=== PATIENT | female | born 1985 | race Caucasian/White ===

== ENCOUNTER 2023-05-04 14:08 | Outpatient (OUT) | payer OTHER, SELFPAY ==
--- NOTE | 2023-05-04 14:19 | ECG_ITS ---
[facility] Test Date: 2023-05-04 Pat Name: Tiana Nichols Department: Room: - Gender: Female [employer]: : 1985 Requested By: EDWARD ANTON Order Number: [id number] Reading MD: RUBY LYON Measurements Intervals [place]an Rate: 61 P: 48 MD: 123 QRS: 68 QRSD: 89 T: 61 QT: 402 QTc: 408 Interpretive Statements SINUS RHYTHM No previous ECG available for comparison Electronically Signed On 05-10-2023 7:25:57 EST by RUBY LYON
--- NOTE | 2023-05-04 14:19 | XR_ITS ---
The [address] [address] Patient Name: DICKSON NOE MRN: [id number] date: 1985 Sex: F Assigned Patient Location: [facility] Current Patient Location: [facility] Accession/Order Number: [id number] Exam Date: 05/04/2023 14:58 Report Date: 05/04/2023 15:26 At the request of: EDWARD ANTON Procedure: XR chest 2V EXAM: XR chest 2V HISTORY: Preop exam COMPARISON: None. TECHNIQUE: Upright PA and lateral chest x-ray FINDINGS: A very small amount of linear atelectasis or scarring is seen at the left costophrenic angle. No acute infiltrate, effusion or pneumothorax is identified. The heart is not enlarged and the vasculature is not distended. The osseous structures are grossly intact. XR/XR chest 2V IMPRESSION: There is a very small amount of linear atelectasis or scarring at the left costophrenic angle. There is no evidence of a focal infiltrate or overt cardiac decompensation. Direct comparison with a previous study may be helpful in confirming the chronicity of these findings. Electronically authenticated by: JANES GRAHAM Date: 05/04/2023 15:26
== END 2023-05-04 14:09 | disposition home or self-care (01) ==
LOC: PST 14:13
PROVIDERS: PCP Family Medicine; Visit Provider Obstetrics & Gynecology
DX: Z01.810 Encounter for preprocedural cardiovascular examination (principal); Z30.2 Encounter for sterilization
CPT/HCPCS: 71046; 93005

== ENCOUNTER 2023-06-15 14:36 | Outpatient (OUT) | payer OTHER, SELFPAY | END 2023-06-15 14:37 | disposition home or self-care (01) | LOC: PST 14:37 | PROVIDERS: PCP Family Medicine; Visit Provider Obstetrics & Gynecology | DX: Z01.818 Encounter for other preprocedural examination (principal); Z30.2 Encounter for sterilization ==

== ENCOUNTER 2023-06-22 06:13 | Day surgery (SDC) | payer OTHER, SELFPAY ==
[2023-05-04 14:50] VITALS: BP 121/76; PULSE 87; RESP 20; TEMP 36.2; O2SAT 98; BMI 26.4
[2023-06-22] VITALS (13 sets, daily range): BP systolic 102–124; BP diastolic 56–70; PULSE 58–77; TEMP 36.1–36.2; O2SAT 94–99; BMI 25.9
--- OUTSIDE RECORDS SUMMARY | 2023-06-22 06:16 | XMS_ITS | CCD ---
Author Organization [facility] Care Team Providers Care Paper Inspector Name Role Phone Unavailable Primary Care Provider Unavailsofia e SHAWANDA MULLINS Referring Unavailable SHAWANDA MULLINS Referring Unavailable CHARLIE ESCOBEDO Admitting Unavailable CHARLIE ESCOBEDO Attending Unavailable DR DICKSON REDMAN Primary Care Unavailable CHARLIE ESCOBEDO Consulting Unavailable Smiley Jain CNM Unavailable Dickson Redman MD Primary Care Provider [phone] EDWARD HOPE Attending Unavailable EDWARD HOPE Attending Unavailable Allergies Allergy Classification Reported Allergen(s) Allergy Type Date of Onset Reaction(s) Facility Acetaminophen / HYDROcodone (1 source) Acetaminophen / HYDROcodone Drug Allergy 6 [facility] Opioid Agonists (1 source) Codeine Drug Allergy 9 [facility] (1 source) Acetaminophen / HYDROcodone Drug Allergy 8 GI intolerance [facility] Healthcare (1 source) Amoxicillin Drug Allergy 2 Nausea Only [facility] Healthcare Work Phone: (1 source) Codeine Drug Allergy 7 GI intolerance, Nausea Only, Unknown [facility] (1 source) risperiDONE Drug Allergy 3 [facility] (1 source) traMADol Drug Allergy 8 [facility] Medications Current Medications Medication Drug Class(es) Dates Sig (Normalized) Sig (Original) atorvastatin 10 mg oral tablet (2 sources) HMG-CoA Reductase Inhibitor take 1 tablet by mouth once daily atorvastatin (Lipitor) 10 MG tablet TAKE 1 TABLET BY MOUTH EVERY DAY for 30 0 Active busPIRone hydrochloride 10 mg oral tablet (1 source) Start: 3 busPIRone (Buspar) 10 MG tablet ergocalciferol 1.25 mg oral capsule (1 source) Provitamin D2 Compound Start: 3 take 1 capsule by mouth every week ergocalciferol (Vitamin D2) 1.25 MG (81090 UT) capsule Take 1 capsule by mouth 1 (one) time per week 0 03/06/2023 Active fluticasone propionate 0.05 mg/actuat metered dose nasal spray (1 source) Corticosteroid Start: 2 take 1 spray(s) nasal route in the morning fluticasone (Flonase) 50 MCG/ACT nasal spray ADMINISTER 1 SPRAY INTO EACH NOSTRIL IN THE MORNING. 0 12/16/2021 Active gabapentin 100 mg oral capsule (1 source) Anti-epileptic Agent take 5 capsules by mouth in the morning gabapentin (Neurontin) 100 MG capsule Take 500 mg by mouth in the morning. 0 Active ibuprofen 800 mg oral tablet (1 source) Nonsteroidal Anti-inflammatory Drug take 1 tablet by mouth three times daily at mealtime as needed ibuprofen 800 MG tablet TAKE 1 TABLET BY MOUTH THREE TIMES A DAY WITH FOOD OR MILK NEEDED 0 Active 1 ml medroxyPROGESTERone acetate 150 mg/ml prefilled syringe (1 source) Progestin Start: 3 End: 4 Depo-Provera 150 MG/ML suspension prefilled syringe injection syringe Indications: Unwanted fertility 1 ml Intramuscular 0.9 mL 0 12/03/2022 04/20/2023 Discontinued OLANZapine 7.5 mg oral tablet (5 sources) Atypical Antipsychotic Start: 3 take 1 tablet by mouth once daily at bedtime OLANZapine (ZyPREXA) 7.5 MG tablet TAKE 1 TABLET BY MOUTH EVERY DAY BEDTIME ALONG WITH 2.5MG THREE TIMES DAILY 0 09/26/2022 Active ZyPREXA 2.5 MG t ablet 1 (one) time each day at the same time. 0 Active take 1 tablet by mouth at bedtim e OLANZapine (ZyPREXA) 5 MG tablet Take 5 mg by mouth at bedtime. 0 Active take 1 tablet by cecelia th once daily in the morning OLANZapine zydis (ZyPREXA) 5 MG disintegrating tablet Take 5 mg by mouth Daily in the Morning 0 Active QUEtiapine 25 mg oral tablet (1 source) Atypical Antipsychotic End: 04-20-2023 take 1 tablet by mouth at bedtime QUEtiapine (SEROquel) 25 MG tablet Take 25 mg by mouth at bedtime 0 04/20/2023 Discontinued topiramate 50 mg oral tablet (2 sources) Start: 03-20-2023 take 1 tablet by mouth in the morning topiramate 50 MG tablet Take 1 tablet by mouth in the morning and 1 tablet before bedtime. 0 03/20/2023 Active Topamax 25 MG ta blet every 12 (twelve) hours. 0 Active Problems Active Problems Problem Classification Problem Date Documented Date Episodic/Chronic Anxiety disorders (2 sources) Anxiety; Translations: [Anxiety disorder, unspecified] Onset: 12-22-2016 10-14-2022 Chronic Contraceptive and procreative management (1 source) Sterilization requested; Translations: [Encounter for sterilization] 04-20-2023 Episodic Esophageal disorders (1 source) Gastroesophageal reflux disease; Translations: [Gastro-esophageal reflux disease without esophagitis] Onset: 10-14-2022 10-14-2022 Chronic Malaise and fatigue (1 source) Fatigue; Translations: [Chronic fatigue, unspecified] Onset: 10-14-2022 10-14-2022 Chronic Menopausal disorders (1 source) Menopausal flushing; Translations: [Menopausal and female climacteric states] Onset: 10-14-2022 10-14-2022 Chronic Menstrual disorders (1 source) Irregular periods; Translations: [Irregular menstruation, unspecified] Onset: 10-14-2022 10-14-2022 Chronic Mood disorders (4 sources) Bipolar disorder; Translations: [Bipolar disorder, unspecified] Onset: 12-22-2016 10-14-2022 Chronic Nutritional deficiencies (1 source) Vitamin D deficiency; Translations: [Vitamin D deficiency, unspecified] Onset: 10-14-2022 10-14-2022 Chronic Other eye disorders (4 sources) Ocular pain, left eye; Translations: [OCULAR PAIN LEFT EYE] Onset: 07-08-2020 Episodic Substance-related disorders (3 sources) Nicotine dependence, cigarettes, uncomplicated; Translations: [Cocaine abuse] Onset: 02-20-2017 10-14-2022 Chronic Past or Other Problems Problem Classification Problem Date Documented Da te Episodic/Chronic Other nervous system disorders (1 source) Muscle twitch; Translations: [Fasciculation] Onset: 10-14-2022 10-14-2022 Episodic Other nervous system disorders (1 source) Spasmodic movement; Translations: [Fasciculation] Onset: 10-14-2022 10-14-2022 Episodic Other upper respiratory disease (1 source) Nasal congestion; Translations: [Nasal congestion] Onset: 02-01-2019 10-14-2022 Episodic Urinary tract infections (1 source) Recurrent urinary tract infection; Translations: [Urinary tract infection, site not specified] Onset: 07-31-2021 10-14-2022 Episodic Results Test Name Value Interpretation Reference Range Facil y DEXA BONE DENSITYon 01-14-20 DEXA BONE DENSITY HISTORY: Screening for osteoporosis COMPARISON: None available COMMENTS: The lumbar spine and both hips were scanned. The mean bone mineral density from L1 to L4 is 0.726 g/sq cm. T-score -2.9. Z- score -2.9. The mean bone mineral density of the left femoral neck is 0.587 g/sq cm. T-score -2.4. Z- score -2.2. The mean bone mineral density of the right femoral neck is 0.598 g/sq cm. T-score -2.3. Z- score -2.1. These values meet WHO criteria for osteoporosis. IMPRESSION: OSTEOPOROSIS. 1 year follow-up recommended. ELECTRONICALLY SIGNED BY: Clifford Gould, DO Normal Not Available Urinalysis w/ Microon 2019 ----- Normal [facility] Comment on above: Performed By: #### U AMIC #### [facility] [address] [place] [address] Carpet Tile Layer: Brian Wakefield MD Acetoacetic Acid,Ur Negative Normal NEG [facility] Comment on above: Performed By: #### U AMIC #### [facility] [address] [place] [address] Carpet Tile Layer: Brian Wakefield MD Bacteria LM.HPF (Urine sed) [#/Area] TRACE Abnormal NONE [facility] Comment on above: Performed By: #### U AMIC #### [facility] [address] [place], [place] [id number] Carpet Tile Layer: Brian Wakefield MD Bilirubin, SemiQt,Ur Negative Normal NEG [facility] Comment on above: Performed By: #### U AMIC #### [facility] [address] [place] [phone] Carpet Tile Layer: Brian Wakefield MD Color (U) YELLOW Normal YEL [facility] Comment on above: Performed By: #### U AMIC #### [facility] [address] [place] [phone] Carpet Tile Layer: Brian Wakefield MD Epithelial cells LM.HPF (Urine sed) [#/Area] 0 TO 2 Normal 0-25 [facility] Comment on above: Performed By: #### U AMIC #### [facility] [address] [place], [place] [phone] Carpet Tile Layer: Brian Wakefield MD Glucose Ql (U) Negative Normal NEG [facility] Comment on above: Performed By: #### U AMIC #### [facility] [address] [place], [place] [phone] Carpet Tile Layer: Brian Wakefield MD Hemoglobin, Ur Negative Normal NEG [facility] Comment on above: Performed By: #### U AMIC #### [facility] [address] [place], [place] [phone] Carpet Tile Layer: Brian Wakefield MD Leukocyte esterase Test strip Ql (U) MODERATE Abnormal NEG [facility] Comment on above: Performed By: #### U AMIC #### [facility] [address] [place], [place] [phone] Carpet Tile Layer: Brian Wakefiedl MD Nitrite,Ur Negative Normal [facility] Comment on above: Performed By: #### U AMIC #### [facility] [address] [place] [phone] [employer]pet Tile Layer: Brian Wakefield MD pH (U) 6.0 [pH] Normal 5.0-9.0 [facility] Comment on above: Performed By: #### U AMIC #### [facility] [address] [place], [place] [phone] [employer]pet [employer]ile Layer: Brian Wakefield MD Protein Ql (U) Negative Normal NEG [facility] Comment on above: Performed By: #### U AMIC #### [facility] [address] [place], [place] [phone] [employer]pet Tile Layer: Brian Wakefield MD RBC (U) [#/Vol] None Normal 0-2 [facility] Comment on above: Performed By: #### U AMIC #### [facility] [address] [place], [place] [phone] [employer]pet [employer]ile Layer: Brian Wakefield MD Specific gravity (U) [Rel density] 1.025 High 1.010-1.020 [facility] Comment on above: Performed By: #### U AMIC #### [facility] [address] [place], [place] [phone] Carpet Tile Layer: Brian Wakefield MD Turbidity CLEAR Normal CLEAR [facility] Comment on above: Performed By: #### U AMIC #### [facility] [address] [place], [place] [phone] [employer]pet [employer]ile Layer: Brian Wakefield MD Urobilinogen,Ur Normal Normal NORM [facility] Comment on above: Performed By: #### U AMIC #### [facility] [address] [place], [place] [phone] [employer]pet [employer]ile Layer: Brian Wakefield MD WBC (U) [#/Vol] 10 TO 20 Normal 0-5 [facility] Comment on above: Performed By: #### U AMIC #### [facility] [address] [place], [place] [phone] Carpet Tile Layer: Brian Wakefield MD Amorphous sediment LM Ql (Urine sed) NOT REPORTED Normal [facility] Comment on above: Performed By: #### U AMIC #### [facility] [address] [place] [address] Carpet Tile Layer: Brian Wakefield MD Casts LM.LPF (Urine sed) [#/Area] NOT REPORTED Normal [facility] Comment on above: Performed By: #### U AMIC #### [facility] [address] [place] [address] [employer]pet Tile Layer: Brian Wakefield MD Comment NOT REPORTED Normal [facility] Comment on above: Performed By: #### U AMIC #### [facility] [address] [place] [address] [employer]pet Tile Layer: Brian Wakefield MD Crystals LM Nom (Urine sed) NOT REPORTED Normal NONE [facility] Comment on above: Performed By: #### U AMIC #### [facility] [address] [place] [phone] [place]pet [place]ile Layer: Brian Wakefield MD Epithelial, Renal NOT REPORTED Normal 0 [facility] Comment on above: Performed By: #### U AMIC #### [facility] [address] [place], [place] [address] [employer]pet [employer]ile Layer: Brian Wakefield MD Mucus Strands NOT REPORTED Normal NONE [facility] Comment on above: Performed By: #### U AMIC #### [facility] [address] [place], [place] [address] Carpet Tile Layer: Brian Wakefield MD Other Observations NOT REPORTED Normal NREQ [facility] Comment on above: Performed By: #### U AMIC #### [facility] [address] [place], [place] [phone] [employer]pet Tile Layer: Brian Wakefield MD Trichomonas NOT REPORTED Normal NONE [facility] Comment on above: Performed By: #### U AMIC #### [facility] [address] [place], [place] [address] [employer]pet Tile Layer: Brian Wakefield MD Yeast LM Ql (Urine sed) NOT REPORTED Normal NONE [facility] Comment on above: Performed By: #### U [facility] #### [facility] [address] [place] [address] [employer]pet Tile Layer: Brian Wakefield MD Urinalysis with Microscopico n 11-14-2019 Amorphous, UA NOT REPORTED None [place], [place] Bacteria, UA TRACE Abnormal None [place], [place] Bilirubin Urine Negative NEGATIVE [place] Casts UA NOT REPORTED /LPF [place] Color, UA YELLOW YELLOW [place] Crystals, UA NOT REPORTED None /HPF [place] Epithelial Cells UA 0 TO 2 [place] Glucose, Ur Negative NEGATIVE [place] Interpretation and review of laboratory results Abnormal [place] Ketones Ql (U) Negative NEGATIVE [place] Leukocyte esterase Test strip Ql (U) MODERATE Abnormal NEGATIVE [place] Mucus, UA NOT REPORTED None [place] Nitrite, Urine Negative NEGATIVE [place] Other Observations UA NOT REPORTED NOT REQ. M [place] pH, UA 6.0 [place] Protein (U) [Mass/Vol] Negative NEGATIVE [place] RBC (U) [#/Vol] None [place] Renal Epithelial, UA NOT REPORTED 0 /HPF [place] Specific [place], UA 1.025 [place] Trichomonas, UA NOT REPORTED None [facility] [place] Turbidity UA CLEAR CLEAR [place] Urinalysis Comments NOT REPORTED [place] Urine Hgb Negative NEGATIVE [place] Urobilinogen, Urine Normal Normal [place] WBC, UA 10 TO 20 [place] Yeast, UA NOT REPORTED None [place] - [place] Cult,Urineon 11-04-2019 Cult,Urine Specimen Description .CLEAN CATCH URINE Special Requests NOT REPORTED Culture ESCHERICHIA COLI >[id number] CFU/ML Report Status FINAL 11/03/2019 SUSCEPTIBILITY Organism ESCHERICHIA COLI Method CONRADO Amikacin NOT REPORTED Ampicillin >=32 RESISTANT Ampicillin/Sulbacta m NOT REPORTED Aztreonam <=1 SUSCEPTIBLE Cefazolin <=4 SUSCEPTIBLE Cefazolin sensitivity results can be used to predict the effectiveness of oral cephalosporins (eg. Cephalexin) in uncomplicated Urinary Tract Infections due to E. coli, K. pneumoniae, and P. mirabilis Cefepime NOT REPORTED Ceftriaxone <=1 SUSCEPTIBLE Ciprofloxacin <=0.25 SUSCEPTIBLE Ertapenem NOT REPORTED ESBL NEGATIVE Gentamicin <=1 SUSCEPTIBLE Meropenem NOT REPORTED Nitrofurantoin <=16 SUSCEPTIBLE Tigecycline NOT REPORTED Tobramycin <=1 SUSCEPTIBLE Trimethoprim/Sulfa <=20 SUSCEPTIBLE Piperacillin/Tazoba ctam <=4 SUSCEPTIBLE Normal [facility] Comment on above: Performed By: #### U #### [facility] [address] [place] [address] [employer]pet Tile Layer: Nura Deal MD [facility] [address] [place] [address] [place]pet Tile Layer: Brian Wakefield MD Microscopic Urinalysison Amorphous, UA NOT REPORTED None [place] Bacteria, UA 2+ Abnormal None [place] Casts UA NOT REPORTED /LPF [place] Crystals, UA NOT REPORTED None /HPF [place] Epithelial Cells UA 5 TO 10 [place] Interpretation and review of laboratory results Abnormal [place] Mucus, UA NOT REPORTED None [place] Other Observations UA NOT REPORTED NOT REQ. [place] RBC (U) [#/Vol] 0 TO 2 [place] Renal Epithelial, UA NOT REPORTED 0 /HPF [place] Trichomonas, UA NOT REPORTED None [facility] [place] WBC, UA 20 TO 50 [place] Yeast, UA NOT REPORTED None [place] - [place] Urinalysison 11-02-2019 Bilirubin Urine Negative NEGATIVE [place] Color, UA YELLOW YELLOW [place] Glucose, Ur Negative NEGATIVE [place] Interpretation and review of laboratory results Abnormal [place] Ketones Ql (U) Negative NEGATIVE [place] Leukocyte esterase Test strip Ql (U) SMALL Abnormal NEGATIVE [place] Nitrite, Urine Positive Abnormal NEGATIVE [place] pH, UA 6.0 [place] Protein (U) [Mass/Vol] Negative NEGATIVE [place] Specific [place], UA 1.025 [place] Turbidity UA CLEAR CLEAR [place] Urinalysis Comments NOT REPORTED [place] Urine Hgb Negative NEGATIVE [place] Urobilinogen, Urine Normal Normal [place] Urinalysis, Routineon 2019 Acetoacetic Acid,Ur Negative Normal NEG [facility] Comment on above: Performed By: #### U A, UMICAO #### [facility] [address] [place] [address] [place] [address] Carpet Tile Layer: Brian Wakefield MD Bilirubin, SemiQt,Ur Negative Normal NEG [facility] Comment on above: Performed By: #### U A, UMICAO #### [address] [place] [address] [employer]pet Tile Layer: Brian Wakefield MD Color (U) YELLOW Normal YEL [facility] Comment on above: Performed By: #### U A, UMICAO #### [address] [place] [address] [employer]pet Tile Layer: Brian Wakefield MD Glucose Ql (U) Negative Normal NEG [facility] Comment on above: Performed By: #### U A, UMICAO #### [address] [place] [address] [employer]pet Tile Layer: Brian Wakefield MD Hemoglobin, Ur Negative Normal NEG [facility] Comment on above: Performed By: #### U A, UMICAO #### [facility] [address] [place] [address] [employer]pet [place]ile Layer: Brian Wakefield MD Leukocyte esterase Test strip Ql (U) SMALL Abnormal NEG [facility] Comment on above: Performed By: #### U A, UMICAO #### [facility] [address] [place], [place] [phone] Carpet Tile Layer: Brian Wakefield MD Nitrite,Ur Positive Abnormal NEG [facility] Comment on above: Performed By: #### U A, UMICAO #### [facility] [address] [place], [place] [phone] Carpet [employer]ile Layer: Brian Wakefield MD pH (U) 6.0 [pH] Normal 5.0-9.0 [facility] Comment on above: Performed By: #### U A, UMICAO #### [facility] [address] [place], [place] [phone] [place]pet [place]ile Layer: Brian Wakefield MD Protein Ql (U) Negative Normal NEG [facility] Comment on above: Performed By: #### U A, UMICAO #### [facility] [address] [place], [place] [phone] Carpet [place]ile Layer: Brian Wakefield MD Specific gravity (U) [Rel density] 1.025 High 1.010-1.020 [facility] Comment on above: Performed By: #### U A, UMICAO #### [facility] [address] [place], [place] [phone] Carpet [employer]ile Layer: Brian Wakefield MD Turbidity CLEAR Normal CLEAR [facility] Comment on above: Performed By: #### U A, UMICAO #### [facility] [address] [place], [place] [phone] Carpet [place]ile Layer: Brian Wakefield MD Urobilinogen,Ur Normal Normal NORM [facility] Comment on above: Performed By: #### U A, UMICAO #### [facility] [address] [place], [place] [address] Carpet [employer]ile Layer: Brian Wakefield MD Comment NOT REPORTED Normal [facility] Comment on above: Performed By: #### U A, UMICAO #### [facility] [address] [place], [place] [address] Carpet [employer]ile Layer: Brian Wakefield MD Urinalysis,Microon 0 ----- Normal [facility] Comment on above: Performed By: #### U A, UMICAO #### [facility] [address] [place], [place] [phone] Carpet [employer]ile Layer: Brian Wakefield MD Bacteria LM.HPF (Urine sed) [#/Area] 2+ Abnormal [facility] Comment on above: Performed By: #### U A, UMICAO #### [facility] [address] [place], [place] [phone] Carpet [employer]ile Layer: Brian Wakefield MD Epithelial cells LM.HPF (Urine sed) [#/Area] 5 TO 10 Normal 0-25 [facility] Comment on above: Performed By: #### U A, UMICAO #### [facility] [address] [place], [place] [address] Carpet [employer]ile Layer: Brian Wakefield MD RBC (U) [#/Vol] 0 TO 2 Normal 0-2 [facility] Comment on above: Performed By: #### U A, UMICAO #### [facility] [address] [place], [place] [phone] Carpet [employer]ile Layer: Brian Wakefield MD WBC (U) [#/Vol] 20 TO 50 Normal 0-5 [facility] Comment on above: Performed By: #### U A, UMICAO #### [facility] [address] [place], [place] [phone] Carpet Tile Layer: Brian Wakefield MD Amorphous sediment LM Ql (Urine sed) NOT REPORTED Normal [facility] Comment on above: Performed By: #### U A, UMICAO #### [facility] [address] [place], [place] [address] Carpet Tile Layer: Brian Wakefield MD Casts LM.LPF (Urine sed) [#/Area] NOT REPORTED Normal [facility] Comment on above: Performed By: #### U A, UMICAO #### [facility] [address] [place], [place] [address] Carpet Tile Layer: Brian Wakefield MD Crystals LM Nom (Urine sed) NOT REPORTED Normal NONE [facility] Comment on above: Performed By: #### U A, UMICAO #### [facility] [address] [place], [place] [phone] Carpet [place]ile Layer: Brian Wakefield MD Epithelial, Renal NOT REPORTED Normal 0 [facility] Comment on above: Performed By: #### U A, UMICAO #### [facility] [address] [place] [address] Carpet Tile Layer: Brian Wakefield MD Mucus Strands NOT REPORTED Normal [facility] Comment on above: Performed By: #### U A, UMICAO #### [facility] [address] [place] [address] Carpet Tile Layer: Brian Wakefield MD Other Observations NOT REPORTED Normal NREQ [facility] Comment on above: Performed By: #### U A, UMICAO #### [facility] [address] [place] [address] Carpet Tile Layer: Brian Wakefield MD Trichomonas NOT REPORTED Normal NONE [facility] Comment on above: Performed By: #### U A, UMICAO #### [facility] [address] [place] [address] Carpet [place]ile Layer: Brian Wakefield MD Yeast LM Ql (Urine sed) NOT REPORTED Normal [facility] Comment on above: Performed By: #### U A, UMICAO #### [facility] [address] [place] [address] Carpet Tile Layer: Brian Wakefield MD Vital Signs Date Time Vital Sign Value Performing Clinician Cynthia gtzy 04-20-2023 10:20-0500 Body mass index (BMI) [Ratio] 25.45 kg/m2 Edward Herminia DO Work Phone: [facility] 04-20-2023 10:20-0500 Body weight 75.35 kg Edward Herminia DO Work Phone: [facility] 04-20-2023 10:20-0500 Diastolic blood pressure 70 mm[Hg] Edward Herminia DO Work Phone: [facility] 04-20-2023 10:20-0500 Systolic blood pressure 116 mm[Hg] Edward Herminia DO Work Phone: [facility] Encounters Encounter Date Encounter Type Care Provider Facility Start: 04-23-2023 End: 04-23-2023 ambulatory EDWARD HERMINIA Not Available Start: 04-20-2023 End: 04-20-2023 ambulatory EDWARD HERMINIA Not Available Start: 04-20-2023 End: 04-20-2023 Office outpatient visit 15 minutes Edward Herminia DO Work Phone: [facility] Comment on above: Pre-op examination; Request for sterilization Start: 04-20-2023 End: 04-20-2023 Preprocedural examination done Edward Herminia DO Work Phone: [facility] Start: 03-24-2023 End: 03-24-2023 ambulatory EDWARD HERMINIA Not Available Start: 07-08-2020 End: 07-08-2020 ambulatory CHARLIE ESCOBEDO Facility: Start: 11-14-2019 End: 11-15-[address] [facility] Start: 11-14-2019 End: 11-14-2019 Subsequent hospital visit by [facility] Start: 11-02-2019 End: 11-03-[address] [facility] Start: 11-02-2019 End: 11-02-2019 Subsequent hospital visit by physician MARK Laboratory Procedures Date Procedure Procedure Detail Performing Clinician Start: 07-25-2020 Microscopic observat ion [Identifier] in Cervix by Cyto stain Edward Hope DO Work Phone: Start: 11-14-2019 Urnls dip stick/tabl et reagent auto microscopy SHAWANDA MULLINS Start: 11-14-2019 Urnls dip stick/tabl et reagent auto microscopy Shawanda Mullins Work Phone: Start: 11-02-2019 Culture bacterial quanttative colony count urine SHAWANDA MULLINS Start: 11-02-2019 Urinalysis microscop ic only Shawanda Mullins Work Phone: Start: 11-02-2019 Urnls dip stick/tabl et rgnt auto w/o microscopy Shawanda Mullins Work Phone: Plan of Treatment Date Care Activity Detail Author Start: 07-25-2025 Screening for malign ant neoplasm of cervix [facility] Start: 07-26-2023 Screening for malign ant neoplasm of cervix Pap Smear [facility] Start: 11-15-2019 Influenza vaccination Flu vaccine (# 1) [place], [place] End: 11-02-2019 Culture, Urine Culture, Urine Microbiology Routine Once for 1 Occurrences starting 11/02/2019 until 11/02/2019 [place] Comment on above: Once for 1 Occurrenc es starting 11/02/2019 until 11/02/2019 Culture, Urine Culture, Urine Microbiology Routine 11/02/2019 7:00 AM EDT [place], [place] Payers Date Payer Category Payer Medicaid [facility] Y MEDICAID [facility] MEDICAID [id number] 2013-Present [address] [place] [address] [id number] 1985 Unknown [id number] 1987 Unknown [id number] 1987 Unknown [id number] 1987 Unknown [id number] 1987 Unknown [id number] 1959 Unknown [id number] Social History Date Type Detail Facility [facility] [place] Start: 1985 Sex Assigned At Not on file [facility] [place] Start: 10-13-2022 Tobacco smoking stat [facility] Occasional tobacco smoker [facility] History of tobacco use Cigarette Smoker [facility] Start: 10-13-2022 Cigarettes smoked current (pack per day) - Reported 0.3 [facility] Start: 04-20-2023 Alcohol intake Lifetime non-d michelle (finding) [facility] Start: 10-13-2022 Tobacco use panel [facility] Start: 08-16-2022 Education 13 [facility] Start: 08-18-2022 Tobacco Comment Smokes 60 mins after waking up. 5 or less cigs a day. [facility] Start: 08-16-2022 Alcohol Comment caffeine intak e: 2-3 cups per day, >4 cups per day mountain dew & coffee [facility] Start: 05-28-2022 Gender identity Identifies as female gender (finding) [facility] History of Present illness Narrative 04-20-2023 Lesli Harvey - 04/20/2023 10:10 AM EST Note Date & Type Note Facility 04-20-2023 History of Presen t illness Narrative Reason for Appointment: Patient ID: Dickson Kumar is a 37 y.o. female who presents for No chief complaint on file. Patient presents today for a Pre Op appointment. Patient is scheduled to undergo Da Zach assisted Bilateral Laparoscopic Salpingectomy on 05/15/[address] Hope at [facility]. Current Medications: has a current medication list which includes the following prescription(s): buspirone, topiramate, atorvastatin, atorvastatin, depo-provera, ergocalciferol, fluticasone, gabapentin, ibuprofen, olanzapine, olanzapine, olanzapine, olanzapine zydis, quetiapine, topamax, and zyprexa. Medical History: Active Ambulatory Problems Diagnosis Date Noted Anxiety 10/14/2022 Bipolar disorder ([facility]) 10/14/2022 Bipolar II disorder ([facility]) 12/22/2016 Mood disorder [facility] 10/14/2022 Bipolar disorder, current episode manic severe with psychotic features ([facility]) 10/14/2022 Chronic fatigue 10/14/2022 Cocaine abuse ([facility]) 10/14/2022 Gastroesophageal reflux disease 10/14/2022 Hot flashes due to menopause 10/14/2022 Irregular periods 10/14/2022 Muscle twitching 10/14/2022 Nasal congestion 02/01/2019 Generalized anxiety disorder ([facility]) 12/22/2016 Recurrent UTI (urinary tract infection) 07/31/2021 Substance dependence ([facility]) 02/20/2017 Twitching 10/14/2022 Vitamin D deficiency 10/14/2022 Resolved Ambulatory Problems Diagnosis Date Noted No Resolved Ambulatory Problems Past Medical History: Diagnosis Date Chlamydia Depression ([facility]) Drug abuse ([facility]) Personal history of medical treatment 02/2017 PTSD (post-traumatic stress disorder) ([facility]) Family History Problem Relation Name Age of Onset Depression Mother Hypertension Mother Cancer Mother Anxiety disorder Father Depression Father Hyperlipidemia Father Mental illness Father Depression Sister Leukemia Maternal Grandmother Kidney cancer Maternal Grandfather Dementia Paternal Grandmother Cancer Paternal Grandmother Lung cancer Paternal Grandfather No Known Problems Daughter Social History Tobacco Use Smoking status: Some Days Packs/day: .25 Types: Cigarettes Smokeless tobacco: Not on file Tobacco comments: Smokes 60 mins after waking up. 5 or less cigs a day. Substance Use Topics Alcohol use: Never Comment: caffeine intake: 2-3 cups per day, >4 cups per day mountain dew & coffee Drug use: Yes Types: Crack cocaine, Marijuana Comment: COCAINE: route: intranasal; treatment program: Tues and Thurs; Have not injected drugs; There is a minor (18 years or younger) at risk at home (1 child); MARIJUANA: 3x/week - when her daughter is not there. Pt is very interested in trying oils Past Surgical History: Procedure Laterality Date COLONOSCOPY PAP SMEAR 07/25/2020 Allergies Allergen Reactions Amoxicillin Nausea Only Codeine GI intolerance, Nausea Only and Unknown Other Reaction(s): Vomiting , Nausea Hydrocodone-Acetaminophen GI intolerance Risperidone Other Reaction(s): Akesthesia Tramadol Pt is unsure of allergy Review of Systems: Review of Systems Constitutional: Negative. HENT: Negative. Eyes: Negative. Respiratory: Negative. Cardiovascular: Negative. Gastrointestinal: Negative. Genitourinary: Negative. Musculoskeletal: Negative. Skin: Negative. Neurological: Negative. All other systems reviewed and are negative. Hematological: Negative. Endocrine: Negative. Allergic/Immunologic: Negative. Objective Physical Exam Constitutional: Appearance: Normal appearance. She is well-developed. Cardiovascular: Rate and Rhythm: Normal rate and regular rhythm. Pulmonary: Effort: Pulmonary effort is normal. Breath sounds: Normal breath sounds. Abdominal: General: Bowel sounds are normal. There is no distension. Palpations: Abdomen is soft. Tenderness: There is no abdominal tenderness. There is no guarding or rebound. Musculoskeletal: General: No swelling. Normal range of motion. Right lower leg: No edema. Left lower leg: No edema. Neurological: Mental Status: She is alert and oriented to person, place, and time. Skin: General: Skin is warm and dry. Psychiatric: Mood and Affect: Mood normal. Behavior: Behavior normal. Vitals and nursing note reviewed. Exam conducted with a computer technical specialist present. Vitals: Estimated body mass index is 25.45 kg/m as calculated from the following: Height as of 10/14/22: 5' 7.75 . Weight as of this encounter: 166 lb 1.9 oz. BP: 116/70 No LMP recorded. Assessment/Plan Encounter Diagnoses Name Primary? Pre-op examination Request for sterilization Pre Op: Patient is doing well but has desire for sterilization. I have discussed conservative management vs. surgical management with the patient in detail and patient desires surgical management at this time. Patient has voiced understanding that a Bilateral Salpingectomy is considered to be permanent and patient will undergo Da Zach assisted Bilateral Laparoscopic Salpingectomy on 05/15/2023. Surgical consents were signed, mmc was reviewed, and patient is to proceed to [facility] OR. Follow Up: Patient is to follow up between 1-2 weeks post op to assess proper healing and recovery from procedure. Documented by: Edward Hope DO documented in this encounter [facility] Evaluation note Note Date & Type Note Facility Evaluation note Diagnosis Pre-op examination Request for sterilization documented in this encounter [facility] Summary Purpose Family History No Family History Records FoundNo Family History Records FoundNo Family History Records Found Advance Directives No Advanced Directives Records FoundNo Advanced Directives Records FoundNo Advanced Directives Records Found Additional Source Comments INFORMATION SOURCE (unrecogn ized section and content) DATE CREATED AUTHOR 11/15/2019 [facility] DATE CREATED AUTHOR AUTHOR'S ORGANIZ ATION 07/24/2020 [facility] DATE CREATED AUTHOR AUTHOR'S ORGANIZ ATION 04/24/2023 [facility] EPIC Care Teams (unrecognized sec tion and content) Paper Inspector Relationship Specialty Start Date End Date Dickson Redman MD [address] [place] [address] PCP - General Family Medicine 10/14/22 Smiley Jain CNM [address] [place] [address] Obstetrics and Gynecology 08/19/22 FOR RECORDS PERTAINING TO PATIENTS WHO ARE OR HAVE BEEN ENROLLED IN A CHEMICAL DEPENDENCY/SUBSTANCEABUSE PROGRAM, SOME INFORMATION MAY BE OMITTED. This clinical summary was aggregated from multiple sources. Caution should be exercised in using it in the provision of clinical care. This summary normalizes information from multiple sources, and as a consequence, information in this document may materially change the coding, format and clinical context of patient data. In addition, data may be omitted in some cases. CLINICAL DECISIONS SHOULD BE BASED ON THE PRIMARY CLINICAL RECORDS. [employer] provides no warranty or guarantee of the accuracy or completeness of information in this document.
[2023-06-22 06:27] LABS: Basophils Absolute Auto 0.1 10^3/uL (0.0-0.1); Basophils Percent Auto 0.6 % (0.2-2.0); Eosinophils Absolute Auto 0.2 10^3/uL (0.0-0.7); Eosinophils Percent Auto 2.5 % (0.9-7.0); Hematocrit 43.5 % (36.0-48.0); Hemoglobin 14.2 g/dL (12.0-16.0); Immature Granulocytes Abs Auto 0.01 10^3/uL (0.00-0.03); Immature Granulocytes Pct Auto 0.1 % (0.0-0.5); Lymphocytes Absolute Auto 3.8 10^3/uL (1.2-3.8); Lymphocytes Percent Auto 40.7 % (20.5-60.0); Mean Corpuscular HGB Conc 32.6 g/dL (29.9-35.2); Mean Corpuscular Hemoglobin 29.3 pg (26.7-34.0); Mean Corpuscular Volume 89.7 fL (81.0-99.0); Mean Platelet Volume 8.8 fL (9.5-13.5); Monocytes Absolute Auto 0.7 10^3/uL (0.3-0.8); Monocytes Percent Auto 7.1 % (1.7-12.0); Neutrophils Absolute Auto 4.6 10^3/uL (1.4-6.5); Platelet Count 306 10^3/uL (150-450); Red Blood Count 4.85 10^6/uL (4.20-5.40); Red Cell Distribution Width 12.2 % (11.0-15.0); White Blood Count 9.4 10^3/uL (4.0-11.0)
[2023-06-22 06:35] LABS: Amphetamine Screen Urine NEGATIVE (NEGATIVE); Barbiturates Screen Urine NEGATIVE (NEGATIVE); Benzodiazepines Screen Urine NEGATIVE (NEGATIVE); Buprenorphine Screen Urine NEGATIVE (NEGATIVE); Cannabinoid Screen Urine NEGATIVE (NEGATIVE); Cocaine Screen Urine NEGATIVE (NEGATIVE); Methadone Screen Urine NEGATIVE (NEGATIVE); Methamphetamines Screen Urine NEGATIVE (NEGATIVE); Opiate Screen Urine NEGATIVE (NEGATIVE); Oxycodone Screen Urine NEGATIVE (NEGATIVE); Phencyclidine Screen Urine NEGATIVE (NEGATIVE); Tricyclic Antidepressant Urine NEGATIVE (NEGATIVE)
[2023-06-22 06:50] LABS: HCG Quantitative <1 mIU/mL
[2023-06-22] MEDS: LACTATED RINGER'S SOLUTION 1,000 ML 50 ML IV ×2 (06:52→08:38)
--- NOTE | 2023-06-22 08:36 | PM.ONB ---
Brief Operative Note Date of procedure: 06/22/23 Pre-op diagnosis general: desires permanent sterilization, mulitparity Post-op diagnosis: other (lt ovarian cyst) Procedure: NAME OF PROCEDURE: robotic assisted bilateral laparoscopic salpingectomy, lt ovarian cystectomy PROCEDURE: The patient was taken back to the Operating Room where she was given general anesthesia without difficulty. She was then prepped and draped in the normal sterile fashion after being placed in a dorsal lithotomy position. A wet sponge stick was placed into the patient's vagina. Attention was then turned to the patient's abdomen, where a scalpel was used to make a small infraumbilical incision. The S retractors were then used to dissect the underlying layers until the fascia could be seen. The fascia was then grasped with Chinyere clamps and tented up. A knife was then used to make a small incision to the fascia. The muscle was identified, at that time two sutures of #0 Vicryl on a GI needle was then used and placed through the fascia. the peritoneum was then identified and entered bluntly. The 10-4 Chelita was then placed into the patient's abdomen. This was confirmed with direct visualization of the bowel, using the laparoscope. The patient's abdomen was then insufflated using approximately 4 liters of CO2 gas. Survey of the patient's abdomen demonstrated ovaries were normal in appearance as well as both tubes and uterus. A second and third rt and lt lateral robotic ports which were 8 mm in size, was then placed after the skin incision was made under direct visualization . the robotic arms were engaged. The patient's tube on the patient's right side was identified and tented up using a grasper, the ligasure apparatus was then used to come across the mesosalpingx from the fimbriated end to the insertion site at the uterus, the tube was then amputated and removed in its entirety. This was done on the contralateral side. The tubes were the removed from the patients abdomen. lt ovarian cystectomy was performed using vessel sealer Excellent hemostasis was noted. The lateral ports were then moved under direct visualization with excellent hemostasis. All instruments were removed from the patient's abdomen. The fascia was closed using the #0 Vicryl on GI needle. The skin was closed using 4-0 Vicryl subcuticularly. All instruments were removed from the patient's vagina as well. The patient was taken out of the dorsal lithotomy position and placed in the supine position and taken to recovery in stable condition. Sponge, lap and needle counts were correct x2. Anesthesia: GIULIA Surgeon: Eduardo Hope Actor Understudy: Rimma Chu Estimated blood loss (mL): 5 Pathology: other (tubes and lt ovarian cyst wall) Condition: stable Disposition: PACU Urinary Catheter Management Urinary Catheter Management Urethral: Cath placed during this visit: no
[2023-06-22] MEDS: LACTATED RINGER'S SOLUTION 1,000 ML 150 ML IV (09:07)
[2023-06-22] MEDS: HYDROCODONE/ACET 5-325 MG TABLET 1 TAB PO (09:07)
[2023-06-22] MEDS: HYDROMORPHONE HCL 0.5 MG/0.5 ML SYRINGE IV (09:07)
== END 2023-06-22 10:10 | disposition home or self-care (01) ==
PROVIDERS: PCP Family Medicine; Visit Provider Obstetrics & Gynecology
PROC: (CPT 00840; principal; 2023-06-22 07:30)
DX: Z30.2 Encounter for sterilization (principal); N83.202 Unspecified ovarian cyst, left side; N83.8 Other noninflammatory disorders of ovary, fallopian tube and broad ligament; F41.9 Anxiety disorder, unspecified; F31.81 Bipolar II disorder; M81.0 Age-related osteoporosis without current pathological fracture; K21.9 Gastro-esophageal reflux disease without esophagitis; Z87.440 Personal history of urinary (tract) infections; F17.210 Nicotine dependence, cigarettes, uncomplicated; F14.20 Cocaine dependence, uncomplicated
CPT/HCPCS: 00840; 58661; 58662; 36415; 80307; 84702; 85025; 88302; 88305; 99999; J1094; J1170; J2704

== ENCOUNTER 2025-01-13 17:42 | Emergency (ER) | payer OTHER, SELFPAY ==
--- OUTSIDE RECORDS SUMMARY | 2023-12-24 11:30 | XMS_ITS ---
Author Organization The [facility] [place] Address [address] [place] [address] Care Team Providers Care Pole Climber Name Role Phone Tiana Redman Primary Care Provider REASON FOR VISIT med concerns Encounters Encounter Location Date Provider Diagnosis [facility] [address] [place] [address] 12/24/2023 Tiana Redman Plan Of Treatment Next Appt Details Provider Name:Jesse johns, 01/16/2025 03:30:00 PM, [address] [place], [address], Provider Name:Tiana de souza, 02/23/2025 04:00:00 PM, [address] [place], [address], Progress Notes * Tiana KUMARDOB: [birth year] (39 yo F)Acc No.[id number]:12/24/2023 UNLOCKED PROGRESS NOTE Established Patient: Arina WATKINSTiana :MARIELOS LopezOB:1985???Age:38 Y ???Sex:FemaleDate:4Phone:[phone]:[address] [place] [phone] Subjective: * Chief Complaints: * 1 . Med concerns. * Medical History: Objective: * Vitals: Assessment: Plan: * Treatment: * * Electronic signature of Tiana Redman MD, [id number] on 01/13/2025 at 06:11 PM EDTSign off status: PendingVisit Status:?CANC (Cancelled) * Provider: Pretty Redman MD Date: 1 Generated for Printing/Faxing/eTransmitting on:?01/13/2025 06:11 PM EDT
--- OUTSIDE RECORDS SUMMARY | 2024-07-27 10:30 | XMS_ITS ---
Author Organization [facility] [place] Address [address] [place] [address] Care Team Providers Care Fire Control Officer Name Role Phone Tiana Redman Primary Care Provider REASON FOR VISIT Wellness Encounters Encounter Location Date Provider Diagnosis [facility] [address] [place] [address] 07/27/2024 Tiana Redman Plan Of Treatment Next Appt Details Provider Name:Jesse johns, 01/16/2025 03:30:00 PM, [address] [place], [address], Provider Name:Tiana de souza, 02/23/2025 04:00:00 PM, [address] [place], [address], Progress Notes * Tiana KUMARDOB: 988 (39 yo F)Acc No.[id number]:07/27/2024 UNLOCKED PROGRESS NOTE Progress Note Patient: Arina WATKINS Tiana Vega :MARIELOS LopezOB:1985???Age:38 Y ???Sex:FemaleDate:07/27/2024Phone:[phone]:[address] [place] [phone] Subjective: * Chief Complaints: * 1 . Wellness. * Medical History: Objective: * Vitals: Assessment: Plan: * Treatment: * * Electronic signature of Tiana Redman MD, [id number] on 01/13/2025 at 06:11 PM EDTSign off status: PendingVisit Status:?R/S (Rescheduled) * Provider: Pretty Redman MD Date: 0 07/27/2024 Generated for Printing/Faxing/eTransmitting on:?01/13/2025 06:11 PM EDT
--- OUTSIDE RECORDS SUMMARY | 2024-10-18 04:45 | XMS_ITS ---
Author Organization [facility] Address [address] [place], [place] [address] Care Team Providers Care Sales Route Driver Name Role Phone Mandie Salamanca Unavailable [phone] Diana Dougherty [phone] REASON FOR VISIT Recall (A) (39) Social History Sex Assigned At : Social History Observation Description Sex Assigned At Female Encounters Encounter Location Date Provider Diagnosis [facility] [address] [place] [phone] 10/18/2024 Diana Dougherty Plan Of Treatment Next Appt Details Provider Name:Mandie Salamanca, 08/2024 04:00:00 PM, [address] [place] [address], [phone], Provider Name:Delia headley, 05/26/2025 11:00:00 AM, [address] [place] [address], [phone], Progress Notes * Tiaan KUMARDOB: [birth year] (39 yo F)Acc No.[id number]:10/18/2024 Patient:?Tiana KUMAR :?Diana Dougherty DMDDOB:1985???Age:39 Y ???Sex:FemaleDate:10/18/2024Phone:[phone]:[address] [place] [phone] Subjective: * Chief Complaints: * 1 . Recall (A) (39). * Medical History: Objective: * Vitals: Assessment: Plan: * Treatment: * Billing Information: * Visit Code: * Procedure Codes: * Electronic signature of Diana Dougherty DMD on 01/13/2025 at 06:10 PM EDTSign off status: Pending * Provider: Silvia Dougherty DMD Date: 0 10/18/2024 Generated for Printing/Faxing/eTransmitting on:?01/13/2025 06:10 PM EDT
--- OUTSIDE RECORDS SUMMARY | 2024-11-10 10:00 | XMS_ITS ---
Author Organization [facility] [place] Address [address] [place] [address] Care Team Providers Care Vegetable Farmworker Name Role Phone Tiana Redman Primary Care Provider Jesse Rogers [phone] REASON FOR VISIT headaches/eye issues Encounters Encounter Location Date Provider Diagnosis [facility] [address] [place] [address] 11/10/2024 Jesse Rogers Plan Of Treatment Next Appt Details Provider Name:Jesse Robertson , 01/16/2025 03:30:00 PM, [address] [place], [address], Provider Name:Tiana de souza, 02/23/2025 04:00:00 PM, [address] [place], [address], Progress Notes * Tiana KUMARDOB: 9[birth year] (39 yo F)Acc No.[id number]:11/10/2024 UNLOCKED PROGRESS NOTE Established Patient: Arina CAITiana QUIGLEY :?Jesse Rogers DODOB:1985???Age:39 Y ???Sex:FemaleDate:11/10/2024Phone:[phone]:[address] [place] [phone]:Tiana Redman Subjective: * Chief Complaints: * 1 . Headaches/eye issues. * Medical History: Objective: * Vitals: Assessment: Plan: * Treatment: * * Electronic signature of Jesse Rogers DO, [id number] on 01/13/2025 at 06:11 PM EDTSign off status: PendingVisit Status:?R/S (Rescheduled) * Provider: Rena Rogers DO Date: 0 11/10/2024 Generated for Printing/Faxing/eTransmitting on:?01/13/2025 06:11 PM EDT
--- OUTSIDE RECORDS SUMMARY | 2024-11-24 07:45 | XMS_ITS ---
Author Organization [facility] [place] Address [address] [place] [address] Care Team Providers Care Composition Worker Name Role Phone Tiana Redman Primary Care Provider REASON FOR VISIT headaches/eye issues Encounters Encounter Location Date Provider Diagnosis [facility] [address] [place] [address] 11/24/2024 Tiana Redman Plan Of Treatment Next Appt Details Provider Name:Jesse johns, 01/16/2025 03:30:00 PM, [address] [place], [address], Provider Name:Tiana de souza, 02/23/2025 04:00:00 PM, [address] [place], [address], Progress Notes * Tiana KUMARDOB: [birth year] (39 yo F)Acc No.[id number]:11/24/2024 UNLOCKED PROGRESS NOTE Established Patient: Arina Tiana WATKINS :MARIELOS LopezOB:1985???Age:39 Y ???Sex:FemaleDate:11/24/2024Phone:[phone]:[address] [place] [phone] Subjective: * Chief Complaints: * 1 . Headaches/eye issues. * Medical History: Objective: * Vitals: Assessment: Plan: * Treatment: * * Electronic signature of Tiaan Redman MD, [id number] on 01/13/2025 at 06:10 PM EDTSign off status: PendingVisit Status:?CANC (Cancelled) * Provider: Pretty Redman MD Date: 0 11/24/2024 Generated for Printing/Faxing/eTransmitting on:?01/13/2025 06:10 PM EDT
--- OUTSIDE RECORDS SUMMARY | 2025-01-12 11:30 | XMS_ITS ---
Author Organization The [facility] [place] Address [address] [place] [address] Care Team Providers Care Scada Engineer Name Role Phone Tiana Redman Primary Care Provider [phone] REASON FOR VISIT rib pain Encounters Encounter Location Date Provider Diagnosis [facility] [address] [place] [address] 01/12/2025 Tiana Redman Plan Of Treatment Next Appt Details Provider Name:Jesse johns, 01/16/2025 03:30:00 PM, [address] [place], [address], Provider Name:Tiana de souza, 02/23/2025 04:00:00 PM, [address] [place], [address], Progress Notes * Tiana KUMARDOB: [birth year] (39 yo F)Acc No.[id number]:01/12/2025 UNLOCKED PROGRESS NOTE Established Patient: Arina WATKINSTiana :MARIELOS LopezOB:1985???Age:39 Y ???Sex:FemaleDate:01/12/2025Phone:[phone]:[address] [place] [phone] Subjective: * Chief Complaints: * 1 . Rib pain. * Medical History: Objective: * Vitals: Assessment: Plan: * Treatment: * * Electronic signature of Tiana Redman MD, [id number] on 01/13/2025 at 09:11 AM EDTSign off status: PendingVisit Status:?R/S (Rescheduled) * Provider: Pretty Redman MD Date: 1 Generated for Printing/Faxing/eTransmitting on:?01/13/2025 09:11 AM EDT
--- OUTSIDE RECORDS SUMMARY | 2025-01-13 10:40 | XMS_ITS | Encounter Summary ---
Author Organization [facility] Address [address] [place] [address] Care Team Providers Care Bankruptcy Law Specialist Name Role Phone Smiley Jain Sarah CN Unavailable [phone] Tiana Redman MD Primary Care Provider + [phone] Kevin Cor[facility] + [phone] Reason for Visit * ReasonCommentsRestless LegsAbnl Movement * Consultation (Routine) - ClosedSpecialtyDiagnoses / ProceduresReferred By ContactReferred To ContactNeurology Diagnoses Restless leg syndrome Disorder of binocular movement Procedures NE OFFICE/OUTPATIENT [facility] 60 MINUTES Edison Smith MD [address] [place] [address] Phone: tel: fax: Edison Smith MD [address] [place] [address] Phone: tel: fax: Referral IDStatusReasonStart DateExpiration DateVisits RequestedVisits [id number] Required / Encounter Details DateTypeDepartmentCare Team (Latest Contact Info)Yjucklsttuq65/31/2025 10:40 AM EDTOffice Visit [facility] [address] [facility] [address] [place] [phone] Edison Smith MD [address] [place] [address] Tardive dyskinesia; New daily persistent headache Social History Tobacco UseTypesPacks/DayYears UsedDateSmoking Tobacco: Every DayCigarettes Comments:Smokes 60 mins afte r waking up. 5 or less cigs a day. Alcohol UseStandard Drinks/WeekCommentsNot Currently0 (1 standard drink = 0.6 oz pure alcohol)caffeine intake: 1 cup coffee in the morningPHQ-2AnswerDate RecordedPatient Health Questionnaire-2 Eogcu83403/28/2023EducationAnswerDate RecordedWhat is the highest level of school you have completed or the highest degree you have received?High school aholvmad43/03/2023CommentsNoSex and Gender InformationValueDate RecordedSex Assigned at WilxnJzzeys99/14/2024 1:08 PM EDTLegal QlcVefmso10/15/2023 6:39 PM EDTGender OdclsqbjNemskf58/15/2023 6:39 PM EDTSexual YvuoiofyvdxSxiivlal25/14/2024 1:08 PM EDTOccupationIndustryJob Start DateJob End Datebabysitting, cleaningNot on fileNot on fileNot on file documented as of this encounter Last Filed Vital Signs Vital SignReadingTime TakenCommentsBlood Pressure--Pulse--Temperature-- Respiratory Rate--Oxygen Saturation--Inhaled Oxygen Concentration--Pgxleh07.7 kg (158 lb)01/13/2025 10:18 AM JJMAyffvn542.5 cm (5' 7.5 )01/13/2025 10:18 AM EDT Body Mass Index24.381 10:18 AM EDTdocumented in this encounter Plan of Treatment DateTypeDepartmentCare Team (Latest Contact Info)Smmjhzerbrp76/06/2025 1:00 PM ESTOffice Visit [facility] [address] [place] [address] Smiley Jain CNM [address] [place] [address] 01/19/2025 2:00 PM ESTAncillary Procedure [facility] [address] [facility] [address] [place] [phone] 02/02/2025 2:00 PM ESTOffice Visit [facility] [place] [facility] [address] [place] [address] Adrianne Aguirre, EXECUTIVE VICE PRESIDENT BUSINESS DEVELOPMENT-ON AWAKE COUNSELOR [address] [place] [address] 03/29/2025 12:00 PM ESTOffice Visit [facility] [address] [place] [address] Diana Guzman, EXECUTIVE VICE PRESIDENT BUSINESS DEVELOPMENT-TABLEAU ARCHITECT [address] [facility] [place] [address] documented as of this encounter Visit Diagnoses Diagnosis Tardive dyskinesia Subacute dyskinesia due to drugs New daily persistent headache documented in this encounter Additional Health Concerns AssessmentNoted TimePHQ-9 Depression Total Score: 15103/28/2023 9:09 AM EST documented as of this encounter Care Teams Team MemberRelationshipSpecialtyStart DateEnd Date Tiana Redman MD [address] [place] [address] PCP - GeneralFamily Medicine10/14/22 Smiley Jain CNM [address] [place] [address] Obstetrics and Gynecology08/19/22 Corrina Brown [facility] [address] [facility] [address] [place] [phone] Nurse PractitionerBehavioral Mlzyjd05/24/24documented as of this encounter
[2025-01-13 17:56] VITALS: BP 119/71; PULSE 87; TEMP 37.1; O2SAT 98; BMI 25.7
--- OUTSIDE RECORDS SUMMARY | 2025-01-13 18:10 | XMS_ITS | CCD ---
Author Organization [facility] Care Team Providers Care Compensation Programs Manager Name Role Phone Unavailable Primary Care Provider Unavailabl e SHAWANDA MULLINS Referring Unavailable SHAWANDA MULLINS Referring Unavailable CHARLIE ESCOBEDO Admitting Unavailable CHARLIE ESCOBEDO Attending Unavailable DR TIANA REDMAN Primary Care Unavailable CHARLIE ESCOBEDO Consulting Unavailable Yousif Jain CNM Unavailable Tiana Redman MD Primary Care Provider Eduardo Hope Attending Provider [phone] Eduarod Hope Attending Unavailable Eduardo Hope Admitting Unavailable Kevin IV RN, [place] Unavailable [phone] Kevin PMHNP-BC, [place] Unavailable MONROE FUNEZ Attending Unavailable FUNEZ, [place]ROE Attending Unavailable FUNEZ, [place] Attending Unavailable FUNEZ, [place] Attending Unavailable FUNEZ, [place]RO[place] Attending Unavailable UFNEZ, [place] Attending Unavailable FUNEZ, [place] Attending Unavailable JAYDE YOUSIF L Referring Unavailable FUNEZ, [place] Attending Unavailable JAYDE YOUSIF L Referring Unavailable FUNEZ, [place] Attending Unavailable FUNEZ, [place] Attending Unavailable FUNEZ, [place] Attending Unavailable FUNEZ, [place] Attending Unavailable FUNEZ, [place] Attending Unavailable MORGAN REDMANHER A Primary Care Unavailable KENYETTA MULLER Attending Unavailable TIANA REDMAN Referring Unavailable TIANA REDMAN Primary Care Unavailable TIANA REDMAN Referring Unavailable TIANA REDMAN Primary Care Unavailable Tiana Redman MD Primary Care Provider [phone] Allergies Allergy ClassificationReported Allergen(s)Allergy TypeDate of OnsetReaction(s) FacilityAcetaminophen / HYDROcodone (1 source)Acetaminophen / HYDROcodoneDrug Wxrctmp98-40-9077Ewt [facility] RepositoryOpioid Agonists (1 source)CodeineDrug Ppdfxew39-45-3248Lpp [facility] Repository (20 sources)Acetaminophen / HYDROcodone; Translations: [HYDROCODONE-ACETAMINOPHEN]Drug Prmsjav03-91-7852XX intoleranceNOVA Healthcare (20 sources)Amoxicillin; Translations: [AMOXICILLIN]Drug Ibwncfk97-50-9353Qrupag OnlyNOVA Healthcare Work Phone: (20 sources)Codeine; Translations: [CODEINE]Drug Bexrdgh18-52-2465HX intolerance, Nausea Only, UnknownNOVA Healthcare (2 sources)risperiDONEDrug Nkxxdlv44-22-5966HQGP Healthcare (9 sources)traMADol; Translations: [TRAMADOL]Drug Htdzayu34-43-1885JXCE Healthcare (20 sources)busPIRone; Translations: [BUSPIRONE]Drug Ditvbmt06-30-5585LD intoleranceNOVA Healthcare (20 sources)Lamotrigine; Translations: [LAMOTRIGINE]Propensity to adverse xfhrcdvoj68-87-3182ZlhoecvpFITU Healthcare (20 sources)QUEtiapine; Translations: [QUETIAPINE]Drug Qmdsede22-41-9352Cmjqi [facility] (20 sources)traZODone; Translations: [TRAZODONE]Drug Xhcjkfq46-03-7552YbaowIRBW Healthcare (1 source)Acetaminophen / HYDROcodoneDrug AllergyOHIP Practices Repository (1 source)CodeineDrug AllergyOHIP Practices Repository Medications Current Medications MedicationDrug Class(es)DatesSig (Normalized)Sig (Original)atorvastatin 10 mg oral tablet (20 sources)HMG-CoA Reductase Inhibitortake 1 tablet by mouth at bedtime atorvastatin (Lipitor) 10 MG tablet Take 10 mg by mouth at bedtime Nqofra12 hr buPROPion hydrochloride 200 mg extended release oral tablet (20 sources)AminoketoneStart: 08-01-2024 End: 39-37-1078zehi 1 tablet by mouth every twelve hours in the morningbuPROPion SR (Wellbutrin SR) 200 MG 12 hr tablet Indications: Bipolar 2 disorder (HCC) , PTSD (post-traumatic stress disorder) , JUVENAL (generalized anxiety disorder) Take 1 tablet (200 mg) by mouth in the morning and 1 tablet (200 mg) before bedtime. 180 tablet 1 11/02/2024 05/01/2025 ActiveStart: 03-21-2024 End: 67-77-5108ipdb 1 tablet by mouth every twelve hours in the morningbuPROPion SR (Wellbutrin SR) 150 MG 12 hr tablet Indications: Current smoker Take 1 tablet (150 mg)by mouth in the morning and 1 tablet (150 mg) before bedtime. Do not crush, chew, or split. 60 tablet 3 07/12/2024 08/01/2024 Discontinued (Dose adjustment)Start: 02-10-2024 End: 17-06-6884dodk 1 tablet by mouth once daily, then take 1 tablet by mouth twice dailybuPROPion SR (Wellbutrin SR) 150 MG 12 hr tablet Indications: Current smoker Take 1 tablet (150 mg)by mouth Daily for 3 days, THEN 1 tablet (150 mg) 2 (two) times a day. Do not crush, chew, or split.. 165 tablet 02/10/2024 03/21/2024 Discontinued (Reorder)ciclopirox 7.7 mg/ml topical cream (20 sources)Start: 71-41-8734Fofopvcstt 1 % shampoo Indications: Other seborrheic dermatitis Lather on wet hair, leave on 5 min,rinse 2-3 x week, 30 day supply 120 mL 11 08/19/2023 ActiveStart: 60-10-6814pwupjdoikh (Loprox) 0.77 % cream Indications: Other seborrheic dermatitis Apply thin layer to affected area once a day, 30 day supply 90 g 08/19/2023 Activeergocalciferol 1.25 mg oral capsule (20 sources)Provitamin D2 CompoundStart: 60-32-3782eujb 1 capsule by mouth every weekergocalciferol (Vitamin D2) 1.25 MG (95857 UT) capsule Take 1 capsule by mouth 1 (one) time per week 03/06/2023 Activefluticasone propionate 0.05 mg/actuat metered dose nasal spray (20 sources)CorticosteroidStart: 13-46-3421otca 1 spray(s) nasal route in the morningfluticasone (Flonase) 50 MCG/ACT nasal spray ADMINISTER 1 SPRAY INTO EACH NOSTRIL IN THE MORNING. 12/16/2021 ActivehydrOXYzine pamoate 50 mg oral capsule (20 sources)AntihistamineStart: 52-99-7967sfwd 1 capsule by mouth every six hours for anxietyhydrOXYzine pamoate (Vistaril) 50 MG capsule Indications: JUVENAL (generalized anxiety disorder) Take 1capsule (50 mg) by mouth every 6 (six) hours if needed for anxiety for up to 120 doses 120 capsule 5 11/24/2024 Active Start: 15-47-6875ipkz 1 capsule by mouth every six hours for anxietyhydrOXYzine pamoate (Vistaril) 50 MG capsule Indications: JUVENAL (generalized anxiety disorder) Take 1capsule (50 mg) by mouth every 6 (six) hours if needed for anxiety for up to 120 doses 120 capsule 5 11/24/2024 ActiveStart: 01-12-2024 End: 23-82-1090zenn 1 capsule by mouth every six hours for anxiety and sleep, then take 2 capsules by mouth at bedtime for anxiety and sleephydrOXYzine pamoate (Vistaril) 50 MG capsule Indications: JUVENAL (generalized anxiety disorder) TAKE 1CAPSULE BY MOUTH EVERY 6 (SIX) HOURS IF NEEDED FOR ANXIETY (MAY TAKE 2 CAPSULES AT BEDTIME FOR SLEEP) 360 capsule 08/03/2024 11/24/2024 Discontinued (Reorder)Start: 61-84-9133jwoxRFRoyex HCl (Atarax) 50 MG tablet Indications: JUVENAL (generalized anxiety disorder) (CMS/HCC) Take 1 tablet every 6 hours as needed for anxiety. Okay to take 2 tablets at night as needed for sleep.30 tablet 01/11/2024 ActiveStart: 06-29-2023 End: 57-23-5892jigsGSPxrqq pamoate (Vistaril) 50 MG capsule Take 100 mg by mouth at bedtime 06/29/2023 01/11/2024 Discontinued (Dose adjustment)Start: 69-33-5396thyvNMHedej pamoate (Vistaril) 50 MG capsule 06/29/2023 Active ibuprofen 800 mg oral tablet (20 sources)Nonsteroidal Anti-inflammatory Drugtake 1 tablet by mouth three times daily at mealtime as neededibuprofen 800 MG tablet TAKE 1 TABLET BY MOUTH THREE TIMES A DAY WITH FOOD OR MILK NEEDED Active1 ml medroxyPROGESTERone acetate 150 mg/ml prefilled syringe (1 source)ProgestinStart: 12-03-2022 End: 18-36-1438Omvv-Provera 150 MG/ML suspension prefilled syringe injection syringe Indications: Unwanted fertility 1 ml Intramuscular 0.9 mL 0 12/03/2022 04/20/2023 DiscontinuedOLANZapine 7.5 mg oral tablet (5 sources)Atypical AntipsychoticStart: 42-97-4010cbjg 1 tablet by mouth once daily at bedtimeOLANZapine (ZyPREXA) 7.5 MG tablet TAKE 1 TABLET BY MOUTH EVERY DAY BEDTIME ALONG WITH 2.5MG THREE TIMES DAILY 0 09/26/2022 ActiveZyPREXA 2.5 MG tablet 1 (one) time each day at the same time. 0 Activetake 1 tablet by mouth at bedtimeOLANZapine (ZyPREXA) 5 MG tablet Take 5 mg by mouth at bedtime. 0 Activetake 1 tablet by mouth once daily in the morningOLANZapine zydis (ZyPREXA) 5 MG disintegrating tablet Take 5 mg by mouth Daily in the Morning 0 Active Vit-Fe Fumarate-FA (M-Abe Plus) 27-1 MG tablet (20 sources)Start: 57-23-8262wzzt 1 tablet by mouth once dailyPrenatal Vit-Fe Fumarate-FA (M-Abe Plus) 27-1 MG tablet Take 1 tablet by mouth Daily 09/14/2023 ActiveQUEtiapine 25 mg oral tablet (1 source)Atypical Antipsychotic End: 26-95-4568yzuu 1 tablet by mouth at bedtimeQUEtiapine (SEROquel) 25 MG tablet Take 25 mg by mouth at bedtime 0 04/20/2023 DiscontinuedrisperiDONE 2 mg oral tablet (20 sources)Atypical AntipsychoticStart: 04-18-2024 End: 49-54-0504ifchzcvAYIJ (RisperDAL) 2 MG tablet Indications: Mixed Bipolar Affective Disorder Take 1.5 tablet in the morning and 1 tablet at night. 90 tablet 3 07/12/2024 ActiveStart: 01-11-2024 End: 45-33-3431lwgu 1 tablet by mouth in the morningrisperiDONE (RisperDAL) 2 MG tablet Indications: Manic Phase of Bipolar Mood Disorder Take 1 tablet(2 mg) by mouth in the morning and 1 tablet (2 mg) before bedtime. 60 tablet 1 03/21/2024 04/18/2024 Discontinued (Ineffective)Start: 12-28-2023 End: 47-97-2640yuek 1 tablet by mouth in the morningrisperiDONE (RisperDAL) 1 MG tablet Indications: Mood disorder Take 1 tablet (1 mg) by mouth in themorning and 1 tablet (1 mg) before bedtime. 60 tablet 12/28/2023 01/11/2024 Discontinued (Dose adjustment)sertraline 100 mg oral tablet (20 sources)Serotonin Reuptake InhibitorStart: 48-96-2783muts 1.5 tablets by mouth once dailysertraline (Zoloft) 100 MG tablet Indications: PTSD (post- traumatic stress disorder) , JUVENAL (generalized anxiety disorder) Take 1.5 tablets (150 mg) by mouth Daily 135 tablet 5 11/24/2024 ActiveStart: 46-47-5927iwmb 1.5 tablets by mouth once dailysertraline (Zoloft) 100 MG tablet Indications: PTSD (post-traumatic stress disorder) , JUVENAL (generalized anxiety disorder) Take 1.5 tablets (150 mg) by mouth Daily 135 tablet 5 11/24/2024 ActiveStart: 10-03-2024 End: 78-72-6656huzl 1.5 tablets by mouth once dailysertraline (Zoloft) 100 MG tablet Indications: PTSD (post-traumatic stress disorder) , JUVENAL (generalized anxiety disorder) TAKE 1.5 TABLETS BY MOUTH DAILY 135 tablet 11/02/2024 11/24/2024 Discontinued(Reorder)Start: 08-01-2024 End: 57-47-9360snnu 1 tablet by mouth once dailysertraline (Zoloft) 100 MG tablet Indications: PTSD (post-traumatic stress disorder) , JUVENAL (generalized anxiety disorder) Take 1 tablet (100 mg) by mouth Daily 30 tablet 1 08/01/2024 10/03/2024 Discontinued (Reorder)Start: 12-03-2023 End: 94-32-3339rqmg 1 tablet by mouth once dailysertraline (Zoloft) 50 MG tablet Indications: PTSD (post-traumatic stress disorder) (CMS/HCC) , JUVENAL(generalized anxiety disorder) (CMS/HCC) Take 1 tablet (50 mg) by mouth Daily 30 tablet 3 07/12/2024 08/01/2024 Discontinued (Dose adjustment)topiramate 25 mg oral tablet (20 sources)Start: 03-21-2024 End: 68-27-4306zkdj 1 tablet by mouth twice daily, then take 2 tablets by mouth twice dailytopiramate (Topamax) 25 MG tablet Indications: Bipolar 2 disorder (HCC) Take 1 tablet (25 mg) by mouth 2 (two) times a day for 7 days, THEN 2 tablets (50 mg) 2 (two) times a day. 11/24/2024 12/31/2024 ActiveStart: 03-20-2023 End: 11-67-9225gpiw 1 tablet by mouth twice dailytopiramate 50 MG tablet Indications: Bipolar 2 disorder (HCC) Take 1 tablet by mouth 2 (two) times a day for 7 days, THEN 25 mg 2 (two) times a day for 7 days. Take with 25 mg tablet for a total of 75 mg twice a day. 10/03/2024 10/25/2024 DiscontinuedTopamax 25 MG tablet every 12 (twelve) hours. 0 Efjayz80 hr divalproex sodium 250 mg extended release oral tablet (4 sources)Mood Stabilizer, Anti-epileptic AgentStart: 10-25-2024 End: 84-02-2709kkyd 1 tablet by mouth every twenty-four hours in the morning divalproex (Depakote ER) 250 MG 24 hr tablet Indications: Bipolar 2 disorder (HCC) Take 1 tablet (250 mg) by mouth in the morning and 1 tablet (250 mg) before bedtime. Do not crush, chew, or split. 60 tablet 10/25/2024 11/17/2024 Discontinued (Dose adjustment) Completed/Discontinued Medications MedicationDrug Class(es)DatesSig (Normalized)Sig (Original)atomoxetine 40 mg oral capsule (2 sources)Norepinephrine Reuptake InhibitorStart: 11-05-2023 End: 38-98-8158vayc 1 capsule by mouth once dailyatomoxetine (Strattera) 40 MG capsule Take 40 mg by mouth Daily 11/05/2023 12/28/2023 Discontinued (Side effects)benztropine mesylate 0.5 mg oral tablet (20 sources)Anticholinergic, AntihistamineStart: 01-11-2024 End: 30-25-8370ishg 0.5 tablet by mouth once dailybenztropine (Cogentin) 0.5 MG tablet Indications: Bipolar 2 disorder (HCC) Take 0.5 tablets (0.25 mg) by mouth Daily for 7 days 10/03/2024 10/25/2024 DiscontinuedbusPIRone hydrochloride 15 mg oral tablet (6 sources)Start: 10-06-2023 End: 66-80-3629iuoz 1 tablet by mouth in the morningbusPIRone (Buspar) 15 MG tablet Take 15 mg by mouth in the morning and 15 mg before bedtime. 10/06/2023 01/11/2024 Discontinued (Ineffective)Start: 03-06-2023 End: 69-62-3721dueZGPhaa (Buspar) 10 MG tablet 03/06/2023 12/28/2023 Discontinued (Therapy completed)docusate sodium 100 mg oral capsule (20 sources)Start: 11-18-2023 End: 76-46-5768lqcy 1 capsule by mouth once dailydocusate sodium (Colace) 100 MG capsule Take 100 mg by mouth Daily 11/18/2023 10/25/2024 Discontinuedgabapentin 100 mg oral capsule (4 sources)Anti-epileptic Agent End: 94-36-1009sehm 5 capsules by mouth in the morninggabapentin (Neurontin) 100 MG capsule Take 500 mg by mouth in the morning. 12/28/2023 Discontinued ( Therapy completed)24 hr nicotine 0.875 mg/hr transdermal system (9 sources)Cholinergic Nicotinic AgonistStart: 08-04-2023 End: 76-58-2506dxoekhhd (Nicoderm, Step 1) 21 MG/24HR patch Place 1 patch on the skin 1 (one) time each day at thesame time 08/04/2023 01/27/2024 Discontinued (Other)24 hr paliperidone 9 mg extended release oral tablet (5 sources)Atypical AntipsychoticStart: 12-03-2023 End: 62-23-6639cgqs 1 tablet by mouth every twenty-four hours in the morning paliperidone (Invega) 9 MG 24 hr tablet Take 9 mg by mouth in the morning. 12/03/2023 12/28/2023 Discontinued (Side effects) End: 14-71-0566llct 1 tablet by mouth once dailypaliperidone (Invega) 6 MG 24 hr tablet TAKE 1 TABLET DAILY Oral morning 12/28/2023 Discontinued (Therapy completed)zolpidem tartrate 10 mg oral tablet (3 sources)gamma-Aminobutyric Acid-ergic Agonist End: 56-73-6511vzajicyc (Ambien) 10 MG tablet Oral for 30 Days 12/28/2023 Discontinued (Other) Problems Active Problems Problem ClassificationProblemDateDocumented DateEpisodic/ChronicAnxiety disorders (20 sources)Anxiety; Translations: [Anxiety disorder, unspecified]Onset: 12-22-2016 Resolved: 044814-16-2276JemnpauUadkuusvumkqt and procreative management (1 source)Sterilization requested; Translations: [Encounter for sterilization] 77-86-9621AnvjbfchSshzrybxpm disorders (20 sources)Gastroesophageal reflux disease; Translations: [Gastro-esophageal reflux disease without esophagitis]Onset: 575205-25-0950KferfueXwyvhbb and fatigue (20 sources)Fatigue; Translations: [Chronic fatigue, unspecified]Onset: 015938-04-0014WkprpdpImecjvciil disorders (8 sources)Menopausal flushing; Translations: [Menopausal and female climacteric states]Onset: 269584-42-8598LcpdgvbDewwmiwri disorders (8 sources)Irregular periods; Translations: [Irregular menstruation, unspecified]Onset: 711301-24-1943NeavrqvLocl disorders (20 sources)Bipolar disorder; Translations: [Bipolar disorder, unspecified] Onset: 12-22-2016 Resolved: 793063-49-8667PlybzewXuagauidxnm chest pain (1 source)Other chest pain; Translations: [Other chest pain]Onset: 12-06-2024 EpisodicNutritional deficiencies (20 sources)Vitamin D deficiency; Translations: [Vitamin D deficiency, unspecified]Onset: 785287-31-0245SqessexOnuppderadfd (20 sources)Osteoporosis; Translations: [Age-related osteoporosis without current pathological fracture]Onset: 245692-36-8594CgcypqdJvkod aftercare (5 sources)Taking high risk medication; Translations: [Other long-term (current) drug therapy]15-80-2418IcwgbkjgSranc eye disorders (4 sources)Ocular pain, left eye; Translations: [OCULAR PAIN LEFT EYE]Onset: 97-72-7559SqldhdncNykeo hereditary and degenerative nervous system conditions (2 sources)Other specified extrapyramidal and movement disorders; Translations: [Other specified extrapyramidal and movement disorders]Onset: 72-37-7276Ajghxrd Other lower respiratory disease (1 source)Rib painOnset: 73-66-3081CuffiqusAhacq screening for suspected conditions (not mental disorders or infectious disease) (1 source)Abnormal findings on diagnostic imaging of other specified body structures; Translations: [Abnormalfindings on diagnostic imaging of other specified body structures]Onset: 59-78-7690DkubjcdYsbgg screening for suspected conditions (not mental disorders or infectious disease) (2 sources)Other specified abnormal findings of blood chemistry; Translations: [Other abnormal blood chemistry]Onset: 776315-01-9083RdcrgjomCpemwfwg codes; unclassified (16 sources)History of substance abuse; Translations: [Personal history of other specified conditions]97-26-9837TxtdmbvhQvzrcwty codes; unclassified (18 sources)Personal history of other specified conditions; Translations: [Other specified personal history presenting hazards to health]Onset: 10-18-2024 17-86-2940WhzdhviwVmzpnufym-related disorders (20 sources)Nicotine dependence, cigarettes, uncomplicated; Translations: [Cocaine abuse]Onset: 02-20-2017 Resolved: 188024-31-5555QzkgmzbFhnwdakwk-hfbepmx disorders (2 sources)Marijuana user; Translations: [Cannabis use, unspecified, uncomplicated]24-88-2110YvkfsvroOjyffvjxsqt injury; contusion (2 sources)Contusion of left front wall of thorax, subsequent encounter; Translations: [Contusion of left front wall of thorax, initial encounter]Onset: 42-32-7998YkdsmjlxBrqlfnvixisz (1 source)LEFT SIDE RIB PAINOnset: 11-27-2024 Past or Other Problems Problem ClassificationProblemDateDocumented DateEpisodic/ChronicMood disorders (20 sources)Mood disordersOnset: 01-11-2024 Resolved: Other nervous system disorders (20 sources)Muscle twitch; Translations: [Fasciculation]Onset: 10-14-2022 Resolved: 022348-41-4790HrbuhzfkTlimm nervous system disorders (20 sources)Spasmodic movement; Translations: [Fasciculation]Onset: 10-14-2022 Resolved: 628455-42-1088LdxfweqoBgfzz upper respiratory disease (20 sources)Nasal congestion; Translations: [Nasal congestion]Onset: 02-01-2019 Resolved: 025591-13-7861NnuyxqijHaaosyd tract infections (20 sources)Recurrent urinary tract infection; Translations: [Urinary tract infection, site not specified]Onset: 926336-60-6230Rjeatuxq Results Test NameValueInterpretationReference RangeFacilityLIVER PANELon 12-06-2024 Albumin [Mass/Vol]4.2 g/dLNormal3.2-5.3PSumma Health Barberton CampusComment on above:Performed By: #### LIVR #### [facility] ([facility]) [address] [place] [address] VIRALP [Catalytic activity/Vol]78 U/KKylysy43-829RljCipvcoTexoma Medical CenterComment on above:Performed By: #### LIVR #### [facility] ([facility]) [address] [place] [address] VIRALT [Catalytic activity/Vol]72 U/LHigh<=31PSumma Health Barberton CampusComment on above:Performed By: #### LIVR #### [facility] ([facility]) [address] [place] [address] VIRAST [Catalytic activity/Vol]22 U/LNormal<=41ProTexoma Medical CenterComment on above:Performed By: #### LIVR #### [facility] ([facility]) [address] [place] [address] VIRBilirubin [Mass/Vol]0.3 mg/dLNormal0.3-1.2PSumma Health Barberton CampusComment on above:Performed By: #### LIVR #### [facility] ([facility]) [address] [place] [address] VIRBilirubin.indirect [Mass/Vol]0.1 mg/dLNormal<=0.4Wyandot Memorial HospitalComment on above:Performed By: #### LIVR #### [facility] ([facility]) [address] [place] [address] VIRProtein [Mass/Vol]6.7 g/dLNormal6.0-8.0Wyandot Memorial HospitalComment on above:Performed By: #### LIVR #### [facility] ([facility]) [address] [place] [address] VIRXR RIBS LT 3 VWS W PA CHESTon 32-95-5238TP RIBS LT 3 VWS W PA CHESTXR RIBS LT 3 VWS W PA CHEST XR RIBS LT 3 VWS W PA CHEST INDICATION: rib pain COMPARISON: None. FINDINGS: Normal cardiomediastinal silhouette. Hyperinflation with trace effusions. No pneumothorax. No acuteosseous abnormality or displaced left rib fracture identified. IMPRESSION: No displaced left rib fracture. Hyperinflation and trace effusions. No pneumothorax. Finalized by Wang Ramsay MD on 11/27/2024 7:05 PMNormalWyandot Memorial HospitalDEXA BONE DENSITYon 65-21-1101CCLM BONE DENSITYExamination: DEXA BONE DENSITY Clinical History: history of osteoporosis COMPARISON: 01/13/2023. Technique: Bone density study was performed. T score values for the lumbar spine, right femoral neck and left femoral neck were obtained. Findings: Value for the lumbar spine from L1-L4 is -2.9. For the right femoral neck is -2.4. Value for the left femoral neck is -2.3. Findings are compatible with osteoporosis with high increased fracture risk. Study was compared to the prior exam dated 01/13/2023 which demonstrates similar findings. IMPRESSION: Impression: Findings compatible with osteoporosis with high increased fracture risk. Findings are similar to the prior exam. ELECTRONICALLY SIGNED BY: Luis Damon M.D.NormalNot AvailableLon 06-22-2023L Specimen: [id number] Received: 06/23/23 Status: FUENTES Morin Num: [id number] Spec Type: Surgical Subm Dr: Eduardo Hope Tissues: A Fallopian Tube - Sterilization (BILATERAL FT) B Ovary - Cyst, Non-Neoplastic (LT OVARIAN CYST) Procedures: HE/5, Gross/Micro L4, Gross/Micro L2 Age/ Patient Sex Location Account Attending Physician SimoneTiana bartholomew 37/F [facility] [id number] Eduardo Hope SPEC NUM: [id number] RECD: 06/23/23 STATUS: FUENTES MORIN NUM: [id number] SHIRA: 06/22/[address]: Eduardo Hope ENTERED: 06/23/[address] [facility] [address]: Sushila,Blank SPEC TYPE: Surgical DEPT: LILA GEORGE ORDERED: HE/5, Gross/Micro L4, Gross/Micro L2 ORDERED: HE/5, Gross/Micro L4, Gross/Micro L2 Pathological Diagnosis A, bilateral fallopian tubes, bilateral salpingectomy: -Fimbriated bilateral fallopian tubes without significant histopathological findings, except few small Walthard cysts in 1 tube, and at least 1 small Walthard cyst in the other tube B, left ovarian cyst, cystectomy: -At least 2 benign residual cysts are noticed without malignancy or any other significant histopathological changes in the examinations Gross Description A.) In formalin labeled bilateral fallopian tubes are two cylindrical pieces of pink- purple tissue ranging in size from 5.9 cm long x 1.0 cm greatest diameter to 7.2 cm long x 1.2 cm in greatest diameter. There are scattered cysts along the length of the tubes. Cut sections demonstrate a complete cross-section of the lumen. Batch Or Continuous Still Operator sections are submitted in A1?A2. B.) In formalin labeled left ovarian cyst is one 3.9 x 1.8 x 0.1 cm piece of perry-white soft tissue. The specimen is serially sectioned and submitted entirely in B1?B3. RG/CYC Clinical history: Request for sterilization, left ovarian cyst, Path pending Specimen: [id number] Received: 06/23/23 Status: FUENTES Morin Num: [id number] Spec Type: Surgical Subm Dr: Eduardo Hope Tissues: A Fallopian Tube - Sterilization (BILATERAL FT) B Ovary - Cyst, Non-Neoplastic (LT OVARIAN CYST) Procedures: HE/5, Gross/Micro L4, Gross/Micro L2 Patient: Tiana Kumar [id number] (Continued) Specimen: [id number] Received: 06/23/23 (Continued) Signed (signature on file) Rabia Robles MD 06/24/23 1238 Specimen: [id number] Received: 06/23/23 Status: FUENTES Morin Num: [id number] Spec Type: Surgical Subm Dr: Eduardo Hope Tissues: A Fallopian Tube - Sterilization (BILATERAL FT) B Ovary - Cyst, Non-Neoplastic (LT OVARIAN CYST) Procedures: HE/5, Gross/Micro L4, Gross/Micro L2 Patient: Tiana Kumar [id number] (Continued) Specimen: [id number] Received: 06/23/23 (Continued) CPT Codes 28601 13686 Specimen: [id number] Received: 06/23/23 Status: FUENTES Morin Num: [id number] Spec Type: Surgical Subm Dr: Eduardo Hope Tissues: A Fallopian Tube - Sterilization (BILATERAL FT) B Ovary - Cyst, Non-Neoplastic (LT OVARIAN CYST) Procedures: HE/5, Gross/Micro L4, Gross/Micro L2 Patient: Tiana Kumar [id number] (Continued) Signed (signature on file) Latrice Robles MD 06/24/[address] [place] [address] Physician GroupECG 12-LEADon [id number] [address] Electrocardiograph Report Signed Patient: TIANA KUMAR MR#: [id number] : 1985 Acct:[id number] Age/Sex: 37 / F ADM Date: 05/04/23 Loc: PST Attending Dr: Eduardo Hope D.O. Ordering Physician: Eduardo Hope D.O. 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 Signed By: 05/10/2326 DD/ 1450 TD/TT: Human Resource Professional:SHELBYadiologmonty, Radiologist, - 05/10/2023 [place] [address] Electrocardiograph Report Signed Patient: TIANA KUMAR MR#: [id number] : 1985 Acct:[id number] Age/Sex: 37 / F ADM Date: 05/04/23 Loc: [facility] Attending Dr: Eduardo Hope D.O. Ordering Physician: Eduardo Hope D.O. 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 Signed By: 05/10/2326 DD/ 1450 TD/TT: Human Resource Professional: NOEMI Sullivan 12-LEADOrdered By: Radiologist Radiology on 90-92-4680UDXQ PR Slides Work Phone: ECG 12-LEADon 14-49-2984Mtwkmeqnd Study observation (narrative)NOEMI AllenXR CHEST 2Von 08-76-8554Ygg [place] [id number] XRay Report Signed Patient: Tiana Kumar MR#: [id number] : 1985 Acct:[id number] Age/Sex: 37 / F ADM Date: 05/04/23 Loc: [facility] Attending Dr: Eduardo Hope D.O. Ordering Physician: Eduardo Hope D.O. Date of Service: 05/04/23 Procedure(s): XR chest 2V Accession Number(s): [id number] cc: Eduardo Hope D.O.; TIANA REDMAN [address] [address] Patient Name: TIANA KUMAR MRN: [facility]:[id number] date: 1985 Sex: F Assigned Patient Location: [facility] Current Patient Location: [facility] Accession/Order Number: [id number] Exam Date: 05/04/2023 14:58 Report Date: 05/04/2023 15:26 At the request of: EDUARDO HOPE Procedure: XR chest 2V EXAM: XR chest 2V HISTORY: Preop exam COMPARISON: None. TECHNIQUE: Upright PA and lateral chest x-ray FINDINGS: A very small amount of linear atelectasis or scarring is seen at the left costophrenic angle. No acute infiltrate, effusion or pneumothorax is identified. The heart is not enlarged and the vasculature is not distended. The osseous structures are grossly intact. XR/XR chest 2V IMPRESSION: There is a very small amount of linear atelectasis or scarring at the left costophrenic angle. There is no evidence of a focal infiltrate or overt cardiac decompensation. Direct comparison with a previous study may be helpful in confirming the chronicity of these findings. Electronically authenticated by: JANES GRAHAM Date: 05/04/2023 15:26 Dictated By: Janes Graham M.D. Signed By: 05/04/23 1528 DD/ 1526 TD/TT: Human Resource Professional:ELBAHRadiology, Radiologist, - 05/04/[address] [address] XRay Report Signed Patient: Tiana Kumar MR#: [id number] : 1985 Acct:[id number] Age/Sex: 37 / F ADM Date: 05/04/23 Loc: [facility] Attending Dr: Eduardo Hope D.O. Ordering Physician: Eduardo Hope D.O. Date of Service: 05/04/23 Procedure(s): XR chest 2V Accession Number(s): [id number] cc: Eduardo Hope D.O.; TIANA REDMAN [place] [address] Patient Name: TIANA KUMAR MRN: [id number] date: 1985 Sex: F Assigned Patient Location: [facility] Current Patient Location: [facility] Accession/Order Number: [id number] Exam Date: 05/04/2023 14:58 Report Date: 05/04/2023 15:26 At the request of: EDUARDO HOPE Procedure: XR chest 2V EXAM: XR chest 2V HISTORY: Preop exam COMPARISON: None. TECHNIQUE: Upright PA and lateral chest x-ray FINDINGS: A very small amount of linear atelectasis or scarring is seen at the left costophrenic angle. No acute infiltrate, effusion or pneumothorax is identified. The heart is not enlarged and the vasculature is not distended. The osseous structures are grossly intact. XR/XR chest 2V IMPRESSION: There is a very small amount of linear atelectasis or scarring at the left costophrenic angle. There is no evidence of a focal infiltrate or overt cardiac decompensation. Direct comparison with a previous study may be helpful in confirming the chronicity of these findings. Electronically authenticated by: JANES GRAHAM Date: 05/04/2023 15:26 Dictated By: Janes Graham M.D. Signed By: 05/04/23 1528 DD/ 1526 TD/TT: Human Resource Professional: NOEMI HealthcareRadiology Study observation (narrative)NOM HealthcareXR CHEST 2V Ordered By: Radiologist Radiology on 61-95-3573DANV Healthcare Work Phone: Urinalysis w/ Microon 11-14-2019-----NormalMercy Waverly HospitalComment on above:Performed By: #### UAMIC #### [facility] [address] [place] [address] Information Systems Professor: Brian Wakefield MDAcetoacetic Acid,UrNegativeNormalNEGMercy Waverly HospitalComment on above:Performed By: #### UAMIC #### [facility] [address] [place] [address] Information Systems Professor: Brian Wakefield MDBacteria LM.HPF (Urine sed) [#/Area]TRACEAbnormal NONEOhiohealth Doctors Hospital HospitalComment on above:Performed By: #### UAMIC #### [address] [place] [address] Information Systems Professor: Brian Wakefield MDBilirubin, SemiQt,UrNegativeNormalNEGOhiohealth Doctors Hospital HospitalComment on above:Performed By: #### UAMIC #### [address] [place] [address] Information Systems Professor: KATI Youngolor (U)YELLOWNormalYOhioHealth Nelsonville Health Center Comment on above:Performed By: #### UAMIC #### [address] [place] [address] Information Systems Professor: Brian Wakefield MDEpithelial cells LM.HPF (Urine sed) [#/Area]0 TO 7Luqviy8-49Uwuez Tiffin HospitalComment on above:Performed By: #### UAMIC #### [facility] [address] [place] [address] Information Systems Professor: Brian Wakefield MDGlucose Ql (U)NegativeNormalNEGMerAccess Hospital Dayton HospitalComment on above:Performed By: #### UAMIC #### [facility] [address] [place], [place] [address] Information Systems Professor: Brian Wakefield MDHemoglobin, UrNegativeNormalNEGMerLawrence+Memorial HospitalComment on above:Performed By: #### UAMIC #### [facility] [address] [place], [place] [address] Information Systems Professor: Brian Wakefield MDLeukocyte esterase Test strip Ql (U)MODERATE AbnormalNEGLutheran HospitalComment on above:Performed By: #### UAMIC #### [facility] [address] [place], [place] 9409[address] Information Systems Professor: Dung Youngtrite,UrNegativeNormalSelect Medical Special[facility], [facility] Comment on above:Performed By: #### UAMIC #### [facility] [address] [place], [facility] Information Systems Professor: Balwinder YoungH (U)6.0 [pH]Normal5.0-9.0[facility] Comment on above:Performed By: #### UAMIC #### [facility] [address] [place], [facility] Information Systems Professor: BALWINDER Youngrotein Ql (U)NegativeNormalNEGLutheran HospitalComment on above:Performed By: #### UAMIC #### [facility] [address] [place], [place] 25[address] Information Systems Professor: Brian Wakefield MDRBC (U) [#/Vol]NoneNormal0-2MVan Wert County Hospital Comment on above:Performed By: #### UAMIC #### [facility] [address] [place] [address] Information Systems Professor: ABIOLA Youngpecific gravity (U) [Rel density]1.025High 1.010-1.020Lutheran HospitalComment on above:Performed By: #### UAMIC #### [facility] [address] [place], [place] [address]83 Information Systems Professor: Brian Wakefield MDTurbidityCLEARNoalCLEARLutheran Hospital Comment on above:Performed By: #### UAMIC #### [facility] [address] [place] [address] Information Systems Professor: Brian Wakefield MDUrobilinogen,UrNormalNormalNORMMercy Health Willard Hospitalcy Waverly HospitalComment on above:Performed By: #### UAMIC #### [facility] [address] [place], [facility] Information Systems Professor: Brian Wakefield MDWBC (U) [#/Vol]10 TO 46Lqtwtn3-5Zdqzf Waverly HospitalComment on above:Performed By: #### UAMIC #### [address] [place], [place] [address] Information Systems Professor: Aura Young sediment LM Ql (Urine sed)NOT REPORTED NormalNONEMeOceans Behavioral Hospital Biloxi HospitalComment on above:Performed By: #### UAMIC #### [facility] [address] [place], [facility] Information Systems Professor: KATI Youngasts LM.LPF (Urine sed) [#/Area]NOT REPORTED NormalOhiohealth Doctors Hospital HospitalComment on above:Performed By: #### UAMIC #### [address] [place] [address] Information Systems Professor: KATI YoungommentNOT REPORTEDNormalLutheran Hospital Comment on above:Performed By: #### UAMIC #### [address] [place] [address] Information Systems Professor: KATI Youngrystals LM Nom (Urine sed)NOT REPORTEDNormalNONE [facility] HospitalComment on above:Performed By: #### UAMIC #### [facility] [address] [place], [place] [address] Information Systems Professor: Brian Wakefield MDEpithelial, RenalNOT TKBWFESVHvtrcw7Rapmu Waverly HospitalComment on above:Performed By: #### UAMIC #### [facility] [address] [place], [place] [address] Information Systems Professor: DINO Youngucus StrandsNOT REPORTEDNormalNONEMeOceans Behavioral Hospital Biloxi HospitalComment on above:Performed By: #### UAMIC #### [facility] [address] [place], [place] [address] Information Systems Professor: Brian Wakefield MDOther ObservationsNOT REPORTEDNormalNREQOhiohealth Doctors Hospital HospitalComment on above:Performed By: #### UAMIC #### [facility] [address] [place], [place] [address] Information Systems Professor: Biran Wakefield MDTrichomonasNOT REPORTEDNormalNONEMeOceans Behavioral Hospital Biloxi HospitalComment on above:Performed By: #### UAMIC #### [facility] [address] [place] [address] Information Systems Professor: Megan Youngast LM Ql (Urine sed)NOT REPORTEDNormalNONE [facility] HospitalComment on above:Performed By: #### UAMIC #### [facility] [address] [place] [address] Information Systems Professor: Brian Wakefield MDUrinalysis with Microscopicon 11-14-2019 Amorphous, UANOT REPORTEDNoneMercy Health- [place], KYBacteria, UATRACEAbnormalNone [facility], KYBilirubin UrineNegativeNEGATIVEMercy Health- [place], KYCasts UA NOT REPORTED/LPFMercy Health- [place], KYColor, UAYELLOWYELLOWMercy Health- [place], [place] Crystals, UANOT REPORTEDNone /HPFMercy Health- [place], KYEpithelial Cells UA0 TO [address]- [place], KYGlucose, UrNegativeNEGATIVEMercy Health- [place], [place] Interpretation and review of laboratory resultsAbnormalMercy Health- [place], [place] Ketones Ql (U)NegativeNEGATIVEMercy Health- [place], KYLeukocyte esterase Test strip Ql (U)MODERATEAbnormalNEGATIVEMercy Health- [place], KYMucus, UANOT REPORTEDNoneMercy Health- [place], KYNitrite, UrineNegativeNEGATIVEMercy Health- [place], KYOther Observations UANOT REPORTEDNOT REQ.[facility]- [place], KYpH, UA6.0[facility]- [place], KYProtein (U) [Mass/Vol]NegativeNEGATIVEMercy Health- [place], KYRBC (U) [#/Vol] NoneMercy Health- [place], KYRenal Epithelial, UANOT REPORTED0 /HPFMercy Health- [place], KYSpecific Muscoda, UA1.025HighMercy Health- [place], KYTrichomonas, UANOT REPORTED NoneMercy Health- [place], KYTurbidity UACLEARCLEARMercy Health- [place], KYUrinalysis CommentsNOT REPORTEDMercy Health- [place], KYUrine HgbNegativeNEGATIVEMercy Health- [place], KYUrobilinogen, UrineNormalNormalMercy Health- [place], KYWBC, UA10 TO 20[facility]- [place], KYYeast, UANOT REPORTEDNoneMercy Health- [place], [place]-[facility]- [place], [place] Cult,Urineon 24-91-0638Kbuo,UrineSpecimen Description .CLEAN CATCH URINE Special Requests NOT REPORTED Culture ESCHERICHIA COLI >[id number] CFU/ML Report Status FINAL 11/03/2019 SUSCEPTIBILITY Organism ESCHERICHIA COLI Method CONRADO Amikacin NOT REPORTED Ampicillin >=32 RESISTANT Ampicillin/Sulbactam NOT REPORTED Aztreonam <=1 SUSCEPTIBLE Cefazolin <=4 [...] REPORTED Tobramycin <=1 SUSCEPTIBLE Trimethoprim/Sulfa <=20 SUSCEPTIBLE Piperacillin/Tazobactam <=4 SUSCEPTIBLEKettering Health Washington TownshipComment on above:Performed By: #### URC #### [facility] i[employer] [address] [place] [id number] Information Systems Professor: Nura Deal MD [facility] [address] [place] [address] Information Systems Professor: Brian Wakefield, MDMicroscopic Urinalysison 70-38-1370Iguhnxcvf, UA NOT REPORTEDNoneMercy Health- [place], KYBacteria, UA2+AbnormalNoneMer[facility] Health- [place], KYCasts UANOT REPORTED/LPFMercy Health- [place], KYCrystals, UANOT REPORTEDNone /HPF [facility] [place], KYEpithelial Cells UA5 TO 10[facility]- [place], KYInterpretation and review of laboratory resultsAbnormalMercy Health- [place], KYMucus, UANOT REPORTEDNoneMer[facility]- [place], KYOther Observations UANOT REPORTEDNOT REQ.[facility]- [place], KYRBC (U) [#/Vol]0 TO 2[facility] [place], KYRenal Epithelial, UANOT REPORTED0 /HPFMercy Health- [place], KYTrichomonas, UANOT REPORTEDNoneMer[facility]- [place], KYWBC, UA20 TO 50[facility]- [place], KYYeast, UANOT REPORTEDNoneMer[facility]- [place], [place]-[facility]- [place], KYUrinalysison 01-56-5243Ircrrxuap UrineNegative NEGATIVEMercy Health- [place], KYColor, UAYELLOWYELLOWMercy Health- [place], KYGlucose, Ur NegativeNEGATIVEMercy Health- [place], KYInterpretation and review of laboratory resultsAbnormalMercy Health- [place], KYKetones Ql (U)NegativeNEGATIVEMercy Health- [place], KYLeukocyte esterase Test strip Ql (U)SMALLAbnormalNEGATIVEMercy Health- [place], KYNitrite, UrinePositiveAbnormalNEGATIVEMercy Health- [place], KYpH, UA6.0[facility]- [place], KYProtein (U) [Mass/Vol]NegativeNEGATIVEMercy Health- [place], KYSpecific Muscoda, UA1.025HighMercy Health- [place], KYTurbidity UACLEARCLEARMercy Health- [place], KYUrinalysis CommentsNOT REPORTEDMercy Health- [place], KYUrine HgbNegativeNEGATIVE [facility]- [place], KYUrobilinogen, UrineNormalNormalMercy Health- [place], [place] Urinalysis, Routineon 33-89-6455Xrjuabgmyxw Acid,UrNegativeNormalNEGMercy Waverly HospitalComment on above:Performed By: #### UA, UMICAO #### [facility] [address] [place] [address] Information Systems Professor: Brian Wakefield MDBilirubin, SemiQt,UrNegativeNormalNEGMerLawrence+Memorial HospitalComment on above:Performed By: #### UA, UMICAO #### [facility] [address] [place] [address] Information Systems Professor: Brian Wakefield [facility] – NORMANolor (U)YELLOWNormalYELMerLawrence+Memorial Hospital Comment on above:Performed By: #### UA, UMICAO #### [facility] [address] [place] [address] Information Systems Professor: Brian Wakefield MDGlucose Ql (U)NegativeNormalNEGLutheran HospitalComment on above:Performed By: #### UA, UMICAO #### [facility] [address] [place] [address] Information Systems Professor: Brian Wakefield MDHemoglobin, UrNegativeNormalNEGLutheran HospitalComment on above:Performed By: #### UA, UMICAO #### [facility] [address] [place] [address] Information Systems Professor: Brian Wakefield MDLeukocyte esterase Test strip Ql (U)SMALLAbnormal NEGMerLawrence+Memorial HospitalComment on above:Performed By: #### UA, UMICAO #### [facility] [address] [place] [address] Information Systems Professor: Brian Wakefield MDNitrite,UrPositiveAbnormalNEGLutheran HospitalComment on above:Performed By: #### UA, UMICAO #### [facility] [address] [place] [address] Information Systems Professor: Brian Wakefield [facility] (U)6.0 [pH]Normal5.0-9.0[facility] Comment on above:Performed By: #### UA, UMICAO #### [facility] [address] [place], [place] [address] Information Systems Professor: BALWINDER Youngocean [facility] center Ql (U)NegativeNormalNEGLutheran HospitalComment on above:Performed By: #### UA, UMICAO #### [facility] [address] [place], [place] [address] Information Systems Professor: ABIOLA Youngpecific gravity (U) [Rel density]1.025High 1.010-1.020Lutheran HospitalComment on above:Performed By: #### UA, UMICAO #### [facility] [address] [place], [place] [address] Information Systems Professor: Sue YoungidityCLEARNoalCLEARLutheran Hospital Comment on above:Performed By: #### UA, UMICAO #### [facility] [address] [place] [address] Information Systems Professor: Vidhya Young,UrNormalNormProMedica Flower HospitalComment on above:Performed By: #### UA, UMICAO #### [facility] [address] [place] [address] Information Systems Professor: Stephenie YoungNOT REPORTEDKettering Health Washington Township Comment on above:Performed By: #### UA, UMICAO #### [facility] [address] [place], [place] [address] Information Systems Professor: Brian Wakefield MDUrinalysis,[place] 11-02-2019-----NormalLutheran HospitalComment on above:Performed By: #### UA, UMICAO #### [facility] [address] [place], [place] 3[address] Information Systems Professor: Brian Wakefield MDBacteria LM.HPF (Urine sed) [#/Area]2+Abnormal NONEMercy Waverly HospitalComment on above:Performed By: #### UA, UMICAO #### [address] [place] [address] Information Systems Professor: Brian Wakefield MDEpithelial cells LM.HPF (Urine sed) [#/Area]5 TO 09Cowmiy9-40Fjhds [facility] HospitalComment on above:Performed By: #### UA, UMICAO #### [address] [place], [facility] Information Systems Professor: ROMMEL YoungBC (U) [#/Vol]0 TO 1Bzjblp8-9Oqscg [facility] HospitalComment on above:Performed By: #### UA, UMICAO #### [address] [place], [place] [address] Information Systems Professor: Brian Wakefield MDWBC (U) [#/Vol]20 TO 20Gbsrev4-0Pwcdp [facility] HospitalComment on above:Performed By: #### UA, UMICAO #### [address] [place] [address] Information Systems Professor: Brian Wakefield MDAmorphous sediment LM Ql (Urine sed)NOT REPORTED NormalNONEMercy Waverly HospitalComment on above:Performed By: #### UA, UMICAO #### [address] [place], [facility] Information Systems Professor: KATI Youngasts LM.LPF (Urine sed) [#/Area]NOT REPORTED NormalMercy Waverly HospitalComment on above:Performed By: #### UA, UMICAO #### [address] [place] [address] Information Systems Professor: KATI Youngrystals LM Nom (Urine sed)NOT REPORTEDNormalNONE [facility] HospitalComment on above:Performed By: #### UA, UMICAO #### [facility] [address] [place] [address] Information Systems Professor: Brian Wakefield MDEpithelial, RenalNOT TZOUBXWHTkuesg5Vwgbi [facility] HospitalComment on above:Performed By: #### UA, UMICAO #### [facility] [address] [place] [address] Information Systems Professor: DINO Youngucus StrandsNOT REPORTEDNormalNONEMeOceans Behavioral Hospital Biloxi HospitalComment on above:Performed By: #### UA, UMICAO #### [facility] [address] [place] [address] Information Systems Professor: Brian Wakefield MDOther ObservationsNOT REPORTEDNormalNREQOhiohealth Doctors Hospital HospitalComment on above:Performed By: #### UA, UMICAO #### [facility] [address] [place] [address] [place] [address] Information Systems Professor: Brian Wakefield MDTrichomonasNOT REPORTEDNormalNONEMeOceans Behavioral Hospital Biloxi HospitalComment on above:Performed By: #### UA, UMICAO #### [address] [place] [address] Information Systems Professor: Brian Wakefield MDYeast LM Ql (Urine sed)NOT REPORTEDNormalNONE [facility] HospitalComment on above:Performed By: #### UA, UMICAO #### [facility] [address] [place], [place] 1866383 Information Systems Professor: Brian Wakefield MD Vital Signs Date TimeVital SignValuePerforming KcfnbbqchEwqbvset51-57-8525 08:48-0500Body mass index (BMI) [Ratio]24.2 kg/v9MfxwpgcxMonroe Funez IV RN Work Phone: [facility] CenterPzupbwvlnm11-62-2187 08:48-0500Body aazjsi40.67 kgMeredith Funez IV RN Work Phone: [phone])[address] [place], [place] 0834111-13-2024 08:48-0500Diastolic blood rrhsagqm98 mm[Hg]Monroe Funez IV RN Work Phone: 1(723)[address] [place], [place] 0834111-13-2024 08:48-0500Heart rate87 /min Monroe Funez IV RN Work Phone: 1(607)[address] [place], [place] 0834111-13-2024 08:48-0500Systolic blood jqomalmc065 mm[Hg]Monroe Funez IV RN Work Phone: 1(936)[address] [place], [place] 0834110-28-2024 13:53-0400Body mass index (BMI) [Ratio]23.74 kg/b3Ohywjhrz Funez IV RN Work Phone: 1(968)[address] [place], [place] 0834110-28-2024 13:53-0400Body jwasyu16.31 kgMonroe Winklerton IV RN Work Phone: 1(370)[address] [place], [place] 0834110-28-2024 13:53-0400Diastolic blood mhmaqrmz36 mm[Hg]Monroe Funez IV RN Work Phone: 1(360)[address] [place], [place] 0834110-28-2024 13:53-0400Heart rate89 /min Monroe Funez IV RN Work Phone: 1(148)[address] [place], [place] 0834110-28-2024 13:53-0400Systolic blood zuodabxr240 mm[Hg]Monroe Funez IV RN Work Phone: 1(075)[address] [place], [place] 0834110-14-2024 12:36-0400Body mass index (BMI) [Ratio]24.05 kg/y6Xoklzqbx Funez IV RN Work Phone: 1(588)[address] [place], [place] 0834110-14-2024 12:36-0400Body kytsdc45.22 kgMerannie Funez IV RN Work Phone: 1([phone])[address] [place] [address]-14-2024 12:36-0400Diastolic blood yawmcefn41 mm[Hg]Monroe Funez IV RN Work Phone: [phone])[address] [place] [address]-14-2024 12:36-0400Heart ltta344 /min Monroe Funez IV RN Work Phone: noMetropolitan [facility] Psychiatric CenterInftdsxtgi37-61-7529 12:36-0400Systolic blood ljivsjoh694 mm[Hg]Monroe Funez IV RN Work Phone: noMetropolitan Saint [facility] Psychiatric CenterTmswagblva85-59-4106 10:20-0500Body mass index (BMI) [Ratio]25.45 kg/n0Mbsyl Herminia DO Work Phone: NOMetropolitan Saint Louis Psychiatric CenterOofcbwfrpv01-51-2950 10:20-0500Body yaykbf65.35 kgCorey Herminia DO Work Phone: noMetropolitan [facility] Psychiatric CenterEqiynbdsfi59-96-9928 10:20-0500Diastolic blood spyaoeoy58 mm[Hg]Eduardo Herminia DO Work Phone: noMetropolitan Saint [facility] Psychiatric CenterHtutykkprj94-73-8717 10:20-0500Systolic blood yqrwefsq054 mm[Hg]Eduardo Herminia DO Work Phone: [facility] Encounters Encounter DateEncounter Type[facility] ProviderFacilityStart: 12-06-2024 End: 51-84-5845jtwgejfsteUDMWXHT A [facility]utetart: 11-27-2024 End: 65-42-8207Tbwiozbkm department patient visitHEATHER A [facility] Institutetart: 11-24-2024 End: 03-10-5328Tniaiz outpatient visit 25 minutesMonroe Funez PMHNP-BC Work Phone: noms [facility] Behavioral HealthComment on above:PTSD (post-traumatic stress disorder) ; JUVENAL (generalized anxiety disorder) ; History of substance use; Bipolar 2 disorder (HCC)Start: 11-24-2024 End: 26-72-5734zszapbnyhqUUBSGPBW BRITTONNot AvailableStart: 11-17-2024 End: 71-80-7515Bynlnw OnlyDeeannie Funez PMHNP-BC Work Phone: noms [facility] HealthComment on above:Bipolar 2 disorder (HCC)Start: 11-10-2024 End: 46-68-2847Lmxclccwx encounterMonroe Funez PMHNP-BC Work Phone: [facility]oms [facility] HealthStart: 10-25-2024 End: 30-28-9826Tnrqoj outpatient visit 25 minutesMonroe Funez [facility]- Work Phone: noms [facility] HealthComment on above: Bipolar 2 disorder (HCC); PTSD (post-traumatic stress disorder) ; JUVENAL (generalized anxiety disorder) ; History of substance use; High risk medication useStart: 10-25-2024 End: 98-29-1898kaqvjzlxciNWYULLCN BRITTONNot AvailableStart: 10-03-2024 End: 75-52-4635Gwfhht outpatient visit 25 minutesMonroe Funez [facility]- Work Phone: noms CI BHComment on above:Bipolar 2 disorder (HCC); PTSD (post-traumatic stress disorder) ; JUVENAL (generalized anxiety disorder) ; History of substance use; Current smokerStart: 10-03-2024 End: 66-39-7759cvnwyqzxvlLSEHDWIU BRITTONNot AvailableStart: 08-01-2024 End: 64-35-5416Qrasro outpatient visit 25 minutesMonroe Funez [facility]- Work Phone: noms CI BHComment on above:Bipolar 2 disorder (CMS/HCC); PTSD (post-traumatic stress disorder) (CMS/HCC); JUVENAL (generalized anxiety disorder) (CMS/HCC); History of substance use; Current smokerStart: 08-01-2024 End: 88-31-0503ukdjsbpnhbUMPSAOMW BRITTONNot AvailableStart: 07-12-2024 End: 74-71-0664Aswnsj outpatient visit 15 minutesMonroe Funez [facility]- Work Phone: noms SWS BHComment on above:Bipolar 2 disorder (CMS/HCC); PTSD (post-traumatic stress disorder) (CMS/HCC); JUVENAL (generalized anxiety disorder) (CMS/HCC); History of substance use; Current smokerStart: 07-12-2024 End: 08-75-3055hqubocnyzrUAVRUSPF BRITTONNot AvailableStart: 05-16-2024 End: 05-00-4961Ascsie outpatient visit 15 minutesMonroe Funez PMHNP-BC Work Phone: noms CI BHComment on above:Bipolar 2 disorder (CMS/HCC); PTSD (post-traumatic stress disorder) (CMS/HCC); JUVENAL (generalized anxiety disorder) (CMS/HCC); History of substance useStart: 05-16-2024 End: 99-03-4470yfkivomdojDWCNNGNN KEVINNot AvailableStart: 04-18-2024 End: 30-41-8836Ayndcg outpatient visit 25 minutesMonroe Funez IV RN Work Phone: noms CI BHComment on above:Bipolar 2 disorder (CMS/HCC); PTSD (post-traumatic stress disorder) (CMS/HCC); JUVENAL (generalized anxiety disorder) (CMS/HCC); History of substance use; Current smokerStart: 04-18-2024 End: 41-79-8060udiauudizmOGXHOKYG BRITTONNot AvailableStart: 03-21-2024 End: 40-25-2623Uujzcq outpatient visit 25 minutesMonroe Funez IV RN Work Phone: noms CI BHComment on above:Bipolar 2 disorder (CMS/HCC); PTSD (post-traumatic stress disorder) (CMS/HCC); JUVENAL (generalized anxiety disorder) (CMS/HCC); History of substance use; Current smokerStart: 03-21-2024 End: 98-99-2017isznpfadjhGNGSKTXC KEVINNot AvailableStart: 02-29-2024 End: 47-49-5740Lpyyke outpatient visit 25 Keyshawn Funze IV RN Work Phone: NOMS CI BHComment on above:Bipolar 2 disorder (CMS/HCC); PTSD (post-traumatic stress disorder) (CMS/HCC); JUVENAL (generalized anxiety disorder) (CMS/HCC); History of substance use; Current smokerStart: 02-29-2024 End: 66-18-6313ycymdmabrdFHBMEBMG BRITTONNot AvailableStart: 02-10-2024 End: 20-34-6184Lfkkkq flowsheetDeeannie Winklerton IV RN Work Phone: noms CI BHStart: 02-10-2024 End: 49-72-3117Obfehp Jhonatan Funez IV RN Work Phone: NOMS CI BHStart: 02-10-2024 End: 15-13-4432Farakx outpatient visit 25 minutesMonroe Funez IV RN Work Phone: NOMS CI BHComment on above:Bipolar 2 disorder (CMS/HCC); JUVENAL (generalized anxiety disorder) (CMS/HCC); Current smoker; PTSD (post-traumatic stress disorder) (CMS/HCC); History of substance useStart: 02-10-2024 End: 64-21-1422sicsklwcohUBGMYYHF BRITTONNot AvailableStart: 01-27-2024 End: 24-82-7766Ltpxtv Jhonatan Winklerton IV RN Work Phone: NOMS CI BHStart: 01-27-2024 End: 65-81-6460Cvokvj Jhonatan Funez IV RN Work Phone: NOMS CI BHStart: 01-27-2024 End: 90-39-8384Takhfw outpatient visit 25 minutesMonroe Funez IV RN Work Phone: NOMS CI BHComment on above:Bipolar 2 disorder (CMS/HCC) (Primary Dx); JUVENAL (generalized anxiety disorder) (CMS/HCC); PTSD (post-traumatic stress disorder) (CMS/HCC); High risk medication use; History of substance use; Current smokerStart: 01-27-2024 End: 70-28-6974rsmbypnedbZBENCCLW BRITTONNot AvailableStart: 01-18-2024 End: 64-79-1894rhavgucyzqSBNVUTV L FLORONot AvailableStart: 01-11-2024 End: 68-22-0093Uzwnef Jhonatan Funez IV RN Work Phone: NOMS CI BHStart: 01-11-2024 End: 74-98-5281Sbidxj Jhonatan Funez IV RN Work Phone: NOMS CI BHStart: 01-11-2024 End: 54-86-0426Wfjxxb outpatient visit 25 minutesMonroe Funez IV RN Work Phone: NOMS CI BHComment on above:Bipolar 2 disorder (CMS/HCC); PTSD (post-traumatic stress disorder) (CMS/HCC); History of substance use; JUVENAL (generalized anxiety disorder) (CMS/HCC); Current smokerStart: 01-11-2024 End: 53-09-7992kwvkcqrrmaNEDXRANG BRITTONNot AvailableStart: 12-29-2023 End: 24-75-6864Mhdswcjgc encounterMonroe Funez IV RN Work Phone: noMS CI BHStart: 12-28-2023 End: 66-98-6053Sndgoq flowsheetMonroe Funez IV RN Work Phone: NOMS CI BHStart: 12-28-2023 End: 75-73-4232Ssinzp flowsLuisito Funez IV RN Work Phone: noMS CI BHStart: 12-28-2023 End: 24-48-0823Bzrrfg outpatient new 60 minutesMonroe Funez IV RN Work Phone: noMS CI BHComment on above:Mood disorder (CMS/HCC) (Primary Dx); JUVENAL (generalized anxiety disorder) (CMS/HCC); PTSD (post-traumatic stress disorder) (CMS/HCC); History of substance use; Marijuana use; Current every day smokerStart: 12-28-2023 End: 22-34-4570kqiwdmpwmjSQZOQPZL BRITTONNot AvailableStart: 06-22-2023 End: 79-70-2393qkzmuwuwqfKubya FazioFacility:[facility] Start: 06-22-2023 End: 09-75-9474ncluzknumsNrtos Herminia Work Phone: [facility] Work Phone: Start: 06-22-2023 End: 95-24-2929Htetgkaz ReferredCorey Herminia Work Phone: [facility]-LAB Path Spec [facility] HospStart: 06-18-2023 End: 59-18-6908ppptuufkayWyqqmsKcbaa: 05-04-2023 End: 19-87-5812Dtyqdsmlg Result EncounterCorey Herminia DO Work Phone: noms External Department UnsolicitedStart: 05-04-2023 End: 77-99-6319Xdfuybjru Result EncounterCorey Herminia DO Work Phone: noms External Department UnsolicitedStart: 04-20-2023 End: 19-41-4625Ynqjyi outpatient visit 15 minutesCorey Herminia DO Work Phone: noms BCP OBComment on above:Pre-op examination; Request for sterilizationStart: 04-20-2023 End: 98-17-1645Vsgptvsekydow examination doneCorey Herminia DO Work Phone: noms HealthcareStart: 07-08-2020 End: 16-42-8135eyfmstnoycBNAAON RODRIGUEZFacility:S5Nwuql: 11-14-2019 End: 26-29-6201Tniwadv [facility] Start: 11-14-2019 End: 53-75-0774Vqsgmgjykt [facility]Start: 11-02-2019 End: 44-51-9007Qjqrowe encounter procedureERDay[facility] Start: 11-02-2019 End: 19-34-5559Mzznysyozi hospital visit by [facility] Procedures DateProcedureProcedure DetailPerforming ClinicianStart: 98-85-3499Gclpzitzvop observation [Identifier] in Cervix by Cyto stainCorey Herminia DO Work Phone: Start: 91-95-2063PO CHEST 2VCorey Herminia DO Work Phone: Start: 76-96-2454OHT 12-LEADCorey Herminia DO Work Phone: Start: 64-25-4712Uixcnenhalk observation [Identifier] in Cervix by Cyto stainCorey Herminia DO Work Phone: Start: 38-41-0198Wvoag dip stick/tablet reagent auto microscopyERNEST RICKERStart: 01-55-8941Vwerm dip stick/tablet reagent auto microscopyErnesamaya Mullins Work Phone: Start: 61-22-9803Uznewrq bacterial quanttative colony count urineERNEST RICKERStart: 45-64-8059Qvgoxxmykm microscopic onlyErmelody Mullins Work Phone: Start: 60-67-7966Jluty dip stick/tablet rgnt auto w/o microscopyErnest Harpreet Work Phone: Plan of Treatment DateCare ActivityDetailAuthorStart: 80-04-2179Ihifydqki for malignant neoplasm of cervixNOMS HealthcareStart: 33-25-2327Dmveprckb for malignant neoplasm of cervixNOMS HealthcareStart: 02-02-2025 End: 13-66-1649Wyhqjnx encounter zelioyvel94/20/2025 2:00 PM EST [facility] [address] [facility] [address] [place] [address] Adrianne Aguirre, CALENDER LET OFF HELPER-[facility] [address] [facility] [address] [place], [id number] [facility] HealthStart: 01-19-2025 End: 11-14-5776Rfkxuaubwfhs / ancillary services /06/2025 2:00 PM EST Ancillary Procedure [facility] [address] [facility] [address] [place] [phone] [facility] [place] ImagingStart: 01-19-2025 End: 55-55-0639Xfysjcg encounter puurimyot56/06/2025 1:00 PM EST Office Visit [facility] [address] [place] [address] Yousif Jain CNM [address] [place] [address] NOMChandler King OBGYNStart: 01-13-2025 End: 06-63-8029Krubejr encounter procedureNOMS [facility] NeurologyStart: 11-24-2024 End: 67-85-4761BLY W Auto Differential panel - BloodCBC and differential Lab Routine High risk medication use Elevated liver function tests Expected: (Approximate), Expires: 01/10/2025[facility] Work Phone: comment on above:Expected: 11/24/2024 (Approximate), Expires: 01/10/2025Start: 11-24-2024 End: 58-54-8439Vopelpmdqxtur metabolic 2000 panel - Serum or PlasmaNOMS HealthcareComment on above:Expected: 11/24/2024 (Approximate), Expires: 01/10/2025Expected: 11/24/2024 (Approximate), Expires: 12/24/2024Start: 11-24-2024 End: 40-81-2098Kyqwtbmh acid level, totalValproic acid level, total Lab Routine High risk medication use Elevated liver function tests Expected: 11/24/2024 (Approximate), Expires: 01/10/2025NOVA HealthcareComment on above:Expected: 11/24/2024 (Approximate), Expires: 01/10/2025Start: 11-24-2024 End: 11-56-1998Qrrvnmtztwdn consultation with kmlbxqi9911/24/2024 9:30 AM EDT Telemedicine [facility] [address] [place] [address] Monroe Funez, PMHNP-BC [address] [facility] [address] [place] [address] [facility] HealthStart: 11-16-2024 End: 24-02-9824Filwmmhfgytq consultation with aqvwxaq2211/16/2024 10:00 AM EDT Telemedicine [facility] [address] [place] [phone] Monroe Funez, PMHNP-BC [address] [place] [phone] NO[facility] HealthStart: 62-92-8569MFAAV-19 Vaccine ( season)COVID-19 Vaccine ()NOM HealthcareStart: 61-16-5979Llzpfngoc vaccinationInfluenza Vaccine (#1)[facility] HealthcareStart: 11-08-2024 End: 61-01-5252Hlrwpkdqogctd metabolic 2000 panel - Serum or PlasmaComprehensive metabolic panel Lab Routine Bipolar 2 disorder (HCC) High risk medication use Expected: 11/08/2024 (Approximate), Expires: 12/25/2024NOVA HealthcareComment on above:Expected: 11/08/2024 (Approximate), Expires: 12/25/2024Start: 11-08-2024 End: 78-19-2810Ckhcyakl acid level, totalValproic acid level, total Lab Routine Bipolar 2 disorder (HCC) High risk medication use Expected: 11/08/2024 (Approximate), Expires: 12/25/2024[facility] Work Phone: comment on above:Expected: 11/08/2024 (Approximate), Expires: 12/25/2024Start: 10-25-2024 End: 10-95-1960Tofjbqiulhig consultation with pwaoear8310/25/2024 2:30 PM EDT Telemedicine NOMS [facility] [address] [facility] [address] [place] [address] Monroe Funez, [facility] [address] [facility] [address] [place] [address] NOMS [facility]ENTERStart: 10-25-2024 End: 84-78-8771Jzqauex encounter xyuykotxk95/12/2025 1:00 PM EDT Office Visit N[facility] [address] [place] [address] Yousif Jain CNM [address] [place] [address] NOMS ANNAM[facility]IE OBStart: 10-03-2024 End: 04-22-0159Chqzecdlwbgn consultation with xfvvpua8810/03/2024 4:00 PM EDT Telemedicine N[facility] [address] [place] [address] Monroe Funez, HNP-BC [address] [place] [address] [facility]S [facility]: 08-11-2024 End: 35-70-0638Yophpgn encounter gyiisvrqf47/29/2025 9:15 AM EDT Office Visit [facility] [address] [place] [address] Natalie Maldonado, IV RN [address] [id number] [facility]: 07-14-2024 End: 00-35-8015Pcfgvui encounter oodhaosaz12/01/2025 2:30 PM EDT Office Visit BETH CONTI [address] [place] [address] Liban [place], [place] [address] [place] [address] BETH BAXTERUEStart: 07-12-2024 End: 50-20-5203Fofvzfdngxmq consultation with ztmjnzr4007/12/2024 11:30 AM EDT Telemedicine NOMS [facility] [address] [place] [address] Monroe Funez, [facility] [address] [place] [address] NOMS [facility]Start: 07-11-2024 End: 62-02-4308Rzmnmij encounter peajvaagp38/28/2025 3:00 PM EDT Office Visit [facility] [place] [address] [place] [address] Estrella Mckeon, DO [address] [place] [address] BETH JOSHUAtart: 05-16-2024 End: 62-14-9295Jgheeomlziza consultation with rxydlfh4005/16/2024 11:30 AM EST Telemedicine N[facility] [address] [place] [address] [phone] Monroe Funez, JERO [address] [place] [address] NOMS CI Start: 04-26-2024 End: 10-84-2174Xigelvmfsnsc consultation with prgedsi5604/26/2024 3:00 PM EST Telemedicine NOM[facility] [address] [place] [address] [phone] Monroe Funez, JERO [address] [place] [address] N[facility]S [facility]Start: 03-21-2024 End: 40-27-6126Nmxcjdaawhgo consultation with yugbnqq2903/21/2024 3:00 PM EST Telemedicine NOMS CI [address] [place] [address] [phone] Monroe Funez, JERO [address] [place] [address] NOMS CI BHStart: 03-02-2024 End: 75-85-2947Geezqsjvmofg consultation with iqzwrdg7303/02/2024 2:00 PM EST Telemedicine NOMS CI [address] [place] [address] [phone] Monroe Funez, JERO [address] [place] [address] NOMS BHStart: 02-10-2024 End: 71-35-5098Erdgbsg encounter lxaeuohrd90/27/2024 11:00 AM EST Office Visit N[facility] [address] [facility] [address] [place] [address] Monroe Funez NP [address] [facility] [address] [place] [address] NOMS CI BHStart: 02-10-2024 End: 38-67-6519Mhnqoicxyqzn consultation with kurpsvj8502/10/2024 11:00 AM EST Telemedicine NOM[facility] [address] [facility] [address] [place] [address] Monroe Funez NP [address] [facility] [address] [place] [address] ArrivedNOSAINT FRANCIS HOSPITAL [facility] BHComment on above: ArrivedStart: 01-27-2024 End: 53-02-746172732798-gmcnwoytwkrziy D3 [Mass/volume] in Serum or PlasmaVitamin D 25 hydroxy Total Lab Routine High risk medication use History of substance use Expected: 01/27/2024 (Approximate), Expires: 01/26/2025NOVA HealthcareComment on above:Expected: 01/27/2024 (Approximate), Expires: 01/26/2025Start: 01-27-2024 End: 71-51-4357EDF W Auto Differential panel - BloodCBC and differential Lab Routine High risk medication use History of substance use Expected: 01/27/2024 (Approximate), Expires: 01/26/2025[facility] Healthcare Work Phone: comment on above:Expected: 01/27/2024 (Approximate), Expires: 01/26/2025Start: 01-27-2024 End: 03-80-4041Phyudjffkycwu metabolic 2000 panel - Serum or PlasmaComprehensive metabolic panel Lab Routine High risk medication use History of substance use Expected: 01/27/2024 (Approximate), Expires: 01/26/2025[facility] HealthcareComment on above:Expected: 01/27/2024 (Approximate), Expires: 01/26/2025Start: 01-27-2024 End: 83-47-0021Uygymeskih A1c/Hemoglobin.total in BloodHemoglobin A1c Lab Routine High risk medication use History of substance use Expected: 01/27/2024 (Approximate), Expires: 01/26/2025NOVA HealthcareComment on above:Expected: 01/27/2024 (Approximate), Expires: 01/26/2025Start: 01-27-2024 End: 84-32-1453Uiuqj 1996 panel - Serum or PlasmaLipid panel Lab Routine High risk medication use History of substance use Expected: 01/27/2024 (Approximate), Expires: 01/26/2025NOVA HealthcareComment on above:Expected: 01/27/2024 (Approximate), Expires: 01/26/2025Start: 01-27-2024 End: 21-00-3549Bkbnsntsnux [Units/volume] in Serum or PlasmaTsh+free t4 Lab Routine High risk medication use History of substance use Expected: 01/27/2024 (Approximate), Expires: 01/26/2025NOVA HealthcareComment on above:Expected: 01/27/2024 (Approximate), Expires: 01/26/2025Start: 01-27-2024 End: 95-99-7869Mldjzld encounter sovchjmdd45/13/2024 11:30 AM EST Office Visit [facility] [address] [facility] [address] [place] [address] Monroe Funez NP [address] [facility] [address] [place] [address] NOMS CI BHStart: 01-18-2024 End: 73-42-1557Bdcjpfxyozlb / ancillary services hmrcnfnofg32/04/2024 11:00 AM EST Ancillary Procedure NOM[facility] [address] [place] [address] YWUA FNR DXAStart: 01-11-2024 End: 23-80-0999Mbqqjdu encounter procedureNOMS CI BHComment on above:Arrived Start: 12-28-2023 End: 93-16-8931Bftbtkd encounter fvmmezdyc42/ 12:30 PM EDT Office Visit NOM[facility] [address] [facility] [address] [place] [address] Monroe Funez NP [address] [facility] [address] [place] [address] Mood disorder (CMS/HCC); Bipolar II disorder (CMS/HCC); AnxietyNOMS CI BHComment on above:Mood disorder (CMS/HCC); Bipolar II disorder (CMS/HCC); AnxietyStart: 69-36-7375Edyhaghfe vaccinationInfluenza Vaccine (#1)NOM HealthcareStart: 84-91-5390Uwhdntxum for malignant neoplasm of cervixPap Smear NOM HealthcareStart: 56-09-7642Meodmdzop vaccinationFlu vaccine (#1)[place], [place]: 56-66-7222QEU Vaccines (1 - 3-dose SCDM series)HPV Vaccines (1 - 3-dose SCDM series)NOMS HealthcareStart: 89-19-9910Glkazscts B Vaccines (1 of 3 - 19+ 3-dose series)Hepatitis B Vaccines (1 of 3 - 19+ 3-dose series)NOMS HealthcareStart: 71-60-2348Dxbdofq of varicella vaccinationVaricella Vaccines (1 of 2 - 13+ 2-dose series)NOM HealthcareStart: 60-15-7159BYeP/Tdap/Td Vaccines (1 - Tdap)DTaP/Tdap/Td Vaccines (1 - Tdap)NOM HealthcareStart: 91-59-4467RMQ Vaccines (1 of 1 - Standard series)MMR Vaccines (1 of 1 - Standard series)[facility] End: 80-07-7072Nyagqip, UrineCulture, Urine Microbiology Routine Once for 1 Occurrences starting 11/02/2019 until 11/02/2019[place], [place]Comment on above:Once for 1 Occurrences starting 11/02/2019 until 11/02/2019Culture, Urine Culture, Urine Microbiology Routine 11/02/2019 7:00 AM [place] Immunizations Immunization DateImmunizationNotesCare UmgbonhdUgebrhhf00-47-2647pyuokkuyu virus vaccine, unspecified formulationMonroe Funez NP Work Phone: [facility] CenterJgjgayybaj96-97-3410tdodiglkx virus vaccine, unspecified formulationMonroe Funez IV RN Work Phone: [facility] Payers DatePayer CategoryPayerPolicy ID2024Self-pay2014MedicaidBU[employer]KEYEC[employer] [employer] MEDICAID [place] [id number] 2013-Present [address] [place] [id number] Medicaid (Managed Care)[facility] MEDICAID Member Subscriber Plan / Payer (Effective 2013-Present) Name: Tiana Kumar Relation to Subscriber: Self Name: Tiana Kumar Payer ID: Not on file Group ID: Not on file Type: Not on file Address: [address] [place] [id number] [id number] 2..1.952147.3.57[id number] 2..1.438222.3.57[id number] 2..1.109433.3.57[id number] 2..1.218866.3.57[id number] 2..1.850904.3.579.2.[id number] 2..1.627706.3.57[id number] 2.0.1.685099.3.579.[id number] 2..1.113801.3.57[id number] 2..1.139374.3.579.[id number] 2..1.704011.3.57[id number] 2..1.105010.3.57[id number] 2..1.450890.3.579.[id number] 2..1.614144.3.57[id number] 2..1.619065.3.579.2.001808-62-3437Gigunhg5911113 2..1.768753.3.57[id number] 2..1.864039.3.57[id number] 2..1.499957.3.579.[id number] 2..1.065085.3.579.[id number] 2..1.495074.3.579.2.393824-25-5467Afxqkhr680785202397 1.840.718778.1.13.239.2.[id number] 2..1.438029.3.579.2.531 Social History DateTypeDetailFacilityTobacco smoking status NHISUnknown if ever smokedSelect [facility]ty [facility]: 20-10-3190Wrh Assigned At BirthNot on fileCoshocton Regional Medical Centerart: 10-13-2022 End: 53-91-3510Mxcqvgz smoking status NHISOccasional tobacco smokerNOVA HealthcareHistory of tobacco useCigarette SmokerSEVIER VALLEY [facility]ITAL HealthcareStart: 10-13-2022 End: 08-95-5405Zvxszwauen smoked current (pack per day) - Reported0.3NOVA HealthcareStart: 26-64-6182Zfyiauj intakeLifetime non-drinker (finding)[facility] HealthcareStart: 10-13-2022 End: 17-01-5656Idngynr use panelNOVA HealthcareStart: 32-22-2005Meesyxvqr26LJCQ HealthcareStart: 72-84-6322Yuilvnz CommentSmokes 60 mins after waking up. 5 or less cigs a day.[facility] HealthcareStart: 19-02-7153Ppweawm Commentcaffeine intake: 2-3 cups per day, >4 cups per day mountain dew & coffeeNOVA HealthcareStart: 17-59-1709Uubsxn identityIdentifies as female gender (finding)[facility] Start: 49-45-6973Sqn Assigned At [facility] Start: 10-22-2023 End: 14-23-8845Erkkjxpcz beverage intakeEx-drinker (finding)[facility] Start: 71-67-8961Sspfyfp smoking status NHISSmokes tobacco dailyNOVA Healthcare Start: 69-40-7672Bbzeere Commentcaffeine intake: 1 cup coffee in the morningSEVIER VALLEY HOSPITAL HealthcareStart: 83-86-4657Lxisun orientationHeterosexual (finding)[facility] HealthcareStart: 21-95-7596TzkYsqjvwXUMC Healthcare Functional Status NlwlJmskeqwumlKgjnnoKptjyhnq16-51-9828Gtg difficult have these problems made it for you to do your work, take care of things at home, or get along with other people?Somewhat difficult 01/27/2024 9:09 AM Ninoska RosadoTEO Somewhat difficultKansas [facility] Medical CenterEilqohnjaa07-29-3978Onkxblnifmh anxiety disorder 7 item (JUVENAL-7) [facility] CenterGhhbekaoib48-60-1755Aobeufs Health Questionnaire 2 item (PHQ-2) [Reported] [facility] Clinical Notes 04-20-2023 to 12-06-2024 Note Date & [id number] NoteXR CHEST 2 VWS History: Chest Pain Procedure: 2 view PA and Lateral chest radiograph. Comparison: 08/02/2017. Findings: The heart and lungs show no acute findings, and the mediastinum and oneil are grossly negative . No pneumothorax. Chest marker lateral lower left hemithorax. No associated bony abnormality. Impression: No acute pulmonary process. Finalized by Cabrera Shea MD on 12/06/2024 5:56 [facility] [place] 11-24-2024 History of Present illness Narrative* Monroe Funez, PMHNP-BC - 11/24/2024 9:30 AM EDT Images from the original note were not included. HPI: Tiana Kumar is a 39 y.o. female with a history of bipolar 2 disorder, PTSD, JUVENAL, and a historyof substance abuse. Patient is here today for follow-up via telehealth. Location of patient: Home; located in [place] Location of provider: Office; located in [place], [place] Patient seen via: Epic Telehealth; audio and video utilized Reason for televisit: Transportation issues; Convenience; Access to care Total time spent with patient: 15 minutes Did patient gave verbal consent for today's visit? Yes At patient's last visit on 10/25/24, she was started on Depakote. She had contacted the office on 11/16 reporting increased irritability and mood swings. She states that she was also have balance issues. She requested that she switch back to Topamax due to her mood getting worse when being on Depakote. She restarted Topamax 25 mg BID on 11/17. She states her balance issues have resolved since stoppingthe Depakote. She continues to have irritability and mood swings, and wants to continue to increaseher Topamax back to what she was on before (75 mg BID). SUBJECTIVE: PAST MEDICAL HISTORY: Past Medical History: Diagnosis Date Akathisia Anxiety Bipolar disorder (HCC) Chlamydia Chronic headaches Chronic UTI Depression Drug abuse (CMS-HCC) cocaine abuse High cholesterol Personal history of medical treatment 02/2017 Pt never been hospitallzied, observed in ER for suicidal ideation. PTSD (post-traumatic stress disorder) MEDICATIONS: Current Outpatient Medications Medication Instructions atorvastatin (LIPITOR) 10 mg, Nightly buPROPion SR (WELLBUTRIN SR) 200 mg, Oral, 2 times daily ciclopirox (Loprox) 0.77 % cream Apply thin layer to affected area once a day, 30 day supply Ciclopirox 1 % shampoo Lather on wet hair, leave on 5 min, rinse 2-3 x week, 30 day supply ergocalciferol (Vitamin D2) 1.25 MG (49090 UT) capsule 1 capsule, Weekly fluticasone (Flonase) 50 MCG/ACT nasal spray ADMINISTER 1 SPRAY INTO EACH NOSTRIL IN THE MORNING. hydrOXYzine pamoate (Vistaril) 50 MG capsule TAKE 1 CAPSULE BY MOUTH EVERY 6 (SIX) HOURS IF NEEDED FOR ANXIETY (MAY TAKE 2 CAPSULES AT BEDTIME FOR SLEEP) ibuprofen 800 MG tablet TAKE 1 TABLET BY MOUTH THREE TIMES A DAY WITH FOOD OR MILK NEEDED Vit-Fe Fumarate-FA (M- Plus) 27-1 MG tablet 1 tablet, Daily risperiDONE (RisperDAL) 2 MG tablet Take 1.5 tablet in the morning and 1 tablet at night. sertraline (ZOLOFT) 150 mg, Oral, Daily topiramate (TOPAMAX) 25 mg, Oral, 2 times daily ALLERGIES: Allergies Allergen Reactions Amoxicillin Nausea Only Buspirone GI intolerance Codeine GI intolerance, Nausea Only and Unknown Other Reaction(s): Vomiting , Nausea Hydrocodone-Acetaminophen GI intolerance Lamictal [Lamotrigine] Seizures Seroquel [Quetiapine] Other Paranoia, Kaleigh Trazodone Other Nightmares SURGICAL HISTORY: Past Surgical History: Procedure Laterality Date COLONOSCOPY OVARIAN CYST REMOVAL Left 06/22/2023 PAP SMEAR 07/25/2020 SALPINGECTOMY Bilateral 06/22/2023 robotic assisted FAMILY HISTORY: Family History Problem Relation Name Age of Onset Hypertension Mother Anxiety disorder Father Depression Father Hyperlipidemia Father Kidney cancer Maternal Grandfather Leukemia Maternal Grandmother Lung cancer Paternal Grandfather Dementia Paternal Grandmother No Known Problems Daughter SOCIAL HISTORY: Social History Tobacco Use Smoking status: Every Day Current packs/day: 0.25 Types: Cigarettes Tobacco comments: Smokes 60 mins after waking up. 5 or less cigs a day. Vaping Use Vaping status: Every Day Substances: Nicotine, Flavoring Substance Use Topics Alcohol use: Not Currently Comment: caffeine intake: 1 cup coffee in the morning Drug use: Yes Types: Marijuana Comment: PAST COCAINE: route: intranasal; treatment program: Tues and Thurs; Have not injected drugs; There is a minor (18 years or younger) at risk at home (1 child); MARIJUANA: 3x/week - when her daughter is not there. Pt is very interested in trying oils Patient Care Team: Tiana Redman MD as PCP - General (Family Medicine) Yousif Jain CNM (Obstetrics and Gynecology) NEYMAR Begum as Nurse Practitioner (Behavioral Health) PSYCHIATRIC REVIEW OF SYMPTOMS AND MENTAL STATUS EXAM ROS: Patient denies fatigue, malaise, night sweats, weight loss, weight gain, cough, SOB, palpitations, chest pain, insomnia, dysphagia, abdominal pain, N/V/D, pruritus, rash, headache, dizziness, seizures, tremors, headache. Appearance Appearance: Normal grooming and hygiene. Appears stated age. Dressed appropriately for weather. Behavior Calm, cooperative, pleasant. Good posture. Psychomotor Activity Intact. No abnormal movements noted. Eye contact Good Speech Normal, clear, regular rate, rhythm and volume Affect Full range. Stable. Appropriate and congruent with mood. Mood Irritable Thought Process Organized, logical, and goal directed Thought Content: Denies suicidal and homicidal ideation. Perception: Denies auditory or visual hallucinations. No evidence of delusions. Denies derealization and depersonalization. Cognition Alert and attentive during visit Memory Immediate, recent and remote memory intact Insight Fair Judgement Fair OBJECTIVE: Visit Vitals OB Status No Periods Smoking Status Every Day Lab results: 02/17/24 - CBC, CMP, Vitamin D (56.5), A1C (5.3%), Lipids (LDL 122) 11/07/24 - CBC, CMP (AST 49, ALT 112, Glucose 108, Depakote 58) ASSESSMENT AND PLAN: Impression: Patient was recently switched from Depakote to Topamax due to side effects. She had been on 75 mg of Topamax twice a day with better control in her moods. She desires to continue to titrate up on this medication due to improvement in mood with this medication. We discussed increasing her to 50 mg BID starting in 1 week. She continues to go to counseling on a regular basis to help withher symptoms. She is aware that we need to recheck her liver function due to recent elevation. Thismay be related to her being on Depakote and hopefully will have resolved when it is rechecked. If it is still elevated, would recommend she follow-up with PCP. She is aware that I am going to be claudyalvino johns on maternity leave in less than 2 weeks and will need continued follow-up with other clinical psychiatrist, Adrianne. I have updated nursing staff and Adrianne on plan of care. Assessment/Plan Diagnoses and all orders for this visit: PTSD (post-traumatic stress disorder) - sertraline (Zoloft) 100 MG tablet; Take 1.5 tablets (150 mg) by mouth Daily - Comprehensive metabolic panel; Future JUVENAL (generalized anxiety disorder) - hydrOXYzine pamoate (Vistaril) 50 MG capsule; Take 1 capsule (50 mg) by mouth every 6 (six) hoursif needed for anxiety for up to 120 doses - sertraline (Zoloft) 100 MG tablet; Take 1.5 tablets (150 mg) by mouth Daily - Comprehensive metabolic panel; Future History of substance use - Comprehensive metabolic panel; Future Bipolar 2 disorder (HCC) - topiramate (Topamax) 25 MG tablet; Take 1 tablet (25 mg) by mouth 2 (two) times a day for 7 days,THEN 2 tablets (50 mg) 2 (two) times a day. - Comprehensive metabolic panel; Future Treatment Plan/Recommendations: - Continue Zoloft 150 mg for depression, anxiety and PTSD. - Continue Hydroxyzine as needed for anxiety. Okay to take up to 100 mg at bedtime for sleep. - Continue Risperdal to 3 mg in the morning and 2 mg at night for bipolar disorder. - Continue Wellbutrin SR to 200 mg BID for depression, inattention, fatigue, motivation. - Continue Topamax 25 mg BID for 1 additional week, and then increase to 50 mg BID for bipolar disorder. - Continue counseling for additional mental health support and treatment. - Keep Neurology appointment in the future. - Recheck CMP to make sure LFTs have improved since being off Depakote. Will have nursing staff faxorder to [facility] per patient request. - RTC in 1 month in [facility]. Discussed any medication changes and follow-up plan with patient. Encouraged patient to call office sooner if symptoms worsen or if any questions/concerns arise. Patient was seen Televisit - Audio and Visual, Total time spent with patient was 17 minutes, which includes reviewing chart documents, previous notes/records, counseling and discussion with patient and/or coordination of care as described above. documented in this encounterKansas City [facility] Medical [id number] History of Present illness Narrative* NEYMAR Begum - 11/17/2024 9:35 AM EDT Rx for Topamax sent. documented in this encounterKansas City [facility] Medical [id number] Telephone encounter Note* Telephone Encounter - NEYMAR Begum - 11/10/2024 10:29 AM EDT Please let patient know that her liver enzymes were slightly elevated. Would like to recheck this in 2-4 weeks. Will also check other labs at this time to make sure everything looks good. Orders placed into chart. Please send these to patient's desire location for bloodwork. [facility] [id number] Miscellaneous Notes* Telephone Encounter - NEYMAR Begum - 11/10/2024 10:29 AM EDT Please let patient know that her liver enzymes were slightly elevated. Would like to recheck this in 2-4 weeks. Will also check other labs at this time to make sure everything looks good. Orders placed into chart. Please send these to patient's desire location for bloodwork. documented in this encounterKansas City VA Medical [id number] History of Present illness Narrative* NEYMAR Begum - 10/25/2024 2:30 PM EDT Images from the original note were not included. HPI: Tiana Kumar is a 39 y.o. female with a history of bipolar 2 disorder, PTSD, JUVENAL, and a historyof substance abuse. Patient is here today for follow-up via telehealth. Location of patient: Home; located in [place] Location of provider: Office; located in [place], [place] Patient seen via: [employer]; audio and video utilized Reason for televisit: Transportation issues; Convenience; Access to care Total time spent with patient: 20 minutes Did patient gave verbal consent for today's visit? Yes At patient's last visit on 10/03/24, her she was titrated off her Cogentin and Topamax. She states that she did fine coming off of these medications. She states that her mood is all over the place since getting off of her Topamax. She states that her anxiety and depression is worse as well. She has been having trouble falling asleep. She reports taking 100 mg of Hydroxyzine around 6 PM and then another 50 mg around 830 PM without much improvement in sleep. She is inquiring about Xanax or a Medical marijuana card. She did not see Neurology as originally planned. She states her appointment is scheduled with Dr. Smith on January 13. SUBJECTIVE: PAST MEDICAL HISTORY: Past Medical History: Diagnosis Date Akathisia Anxiety Bipolar disorder (HCC) Chlamydia Chronic headaches Chronic UTI Depression Drug abuse ([facility]) cocaine abuse High cholesterol Personal history of medical treatment 02/2017 Pt never been hospitallzied, observed in ER for suicidal ideation. PTSD (post-traumatic stress disorder) MEDICATIONS: Current Outpatient Medications Medication Instructions atorvastatin (LIPITOR) 10 mg, Nightly buPROPion SR (WELLBUTRIN SR) 200 mg, Oral, 2 times daily, Do not crush, chew, or split. ciclopirox (Loprox) 0.77 % cream Apply thin layer to affected area once a day, 30 day supply Ciclopirox 1 % shampoo Lather on wet hair, leave on 5 min, rinse 2-3 x week, 30 day supply ergocalciferol (Vitamin D2) 1.25 MG (45008 UT) capsule 1 capsule, Weekly fluticasone (Flonase) 50 MCG/ACT nasal spray ADMINISTER 1 SPRAY INTO EACH NOSTRIL IN THE MORNING. hydrOXYzine pamoate (Vistaril) 50 MG capsule TAKE 1 CAPSULE BY MOUTH EVERY 6 (SIX) HOURS IF NEEDED FOR ANXIETY (MAY TAKE 2 CAPSULES AT BEDTIME FOR SLEEP) ibuprofen 800 MG tablet TAKE 1 TABLET BY MOUTH THREE TIMES A DAY WITH FOOD OR MILK NEEDED Vit-Fe Fumarate-FA (M- Plus) 27-1 MG tablet 1 tablet, Daily risperiDONE (RisperDAL) 2 MG tablet Take 1.5 tablet in the morning and 1 tablet at night. sertraline (ZOLOFT) 150 mg, Oral, Daily ALLERGIES: Allergies Allergen Reactions Amoxicillin Nausea Only Buspirone GI intolerance Codeine GI intolerance, Nausea Only and Unknown Other Reaction(s): Vomiting , Nausea Hydrocodone-Acetaminophen GI intolerance Lamictal [Lamotrigine] Seizures Seroquel [Quetiapine] Other Paranoia, Kaleigh Trazodone Other Nightmares SURGICAL HISTORY: Past Surgical History: Procedure Laterality Date COLONOSCOPY OVARIAN CYST REMOVAL Left 06/22/2023 PAP SMEAR 07/25/2020 SALPINGECTOMY Bilateral 06/22/2023 robotic assisted FAMILY HISTORY: Family History Problem Relation Name Age of Onset Hypertension Mother Anxiety disorder Father Depression Father Hyperlipidemia Father Kidney cancer Maternal Grandfather Leukemia Maternal Grandmother Lung cancer Paternal Grandfather Dementia Paternal Grandmother No Known Problems Daughter SOCIAL HISTORY: Social History Tobacco Use Smoking status: Every Day Current packs/day: 0.25 Types: Cigarettes Tobacco comments: Smokes 60 mins after waking up. 5 or less cigs a day. Vaping Use Vaping status: Every Day Substances: Nicotine, Flavoring Substance Use Topics Alcohol use: Not Currently Comment: caffeine intake: 1 cup coffee in the morning Drug use: Yes Types: Marijuana Comment: PAST COCAINE: route: intranasal; treatment program: and ; Have not injected drugs; There is a minor (18 years or younger) at risk at home (1 child); MARIJUANA: 3x/week - when her daughter is not there. Pt is very interested in trying oils Patient Care Team: Tiana Redman MD as PCP - General (Family Medicine) Yousif Jain CNM (Obstetrics and Gynecology) KAT Begum as Nurse Practitioner (Behavioral Health) PSYCHIATRIC REVIEW OF SYMPTOMS AND MENTAL STATUS EXAM ROS: Patient denies fatigue, malaise, night sweats, weight loss, weight gain, cough, SOB, palpitations, chest pain, insomnia, dysphagia, abdominal pain, N/V/D, pruritus, rash, headache, dizziness, seizures, tremors, headache. Appearance Appearance: Normal grooming and hygiene. Appears stated age. Dressed appropriately for weather. Behavior Calm, cooperative, pleasant. Good posture. Psychomotor Activity Intact. No abnormal movements noted. Eye contact Good Speech Normal, clear, regular rate, rhythm and volume Affect Full range. Stable. Appropriate and congruent with mood. Mood Anxious, Depressed, and Irritable Thought Process Organized, logical, and goal directed Thought Content: Denies suicidal and homicidal ideation. Perception: Denies auditory or visual hallucinations. No evidence of delusions. Denies derealization and depersonalization. Cognition Alert and attentive during visit Memory Immediate, recent and remote memory intact Insight Good. Acknowledges predominant symptoms of illness and need for treatment Judgement Fair OBJECTIVE: Visit Vitals OB Status No Periods Smoking Status Every Day Lab results: 02/17/24 - CBC, CMP, Vitamin D (56.5), A1C (5.3%), Lipids (LDL 122) ASSESSMENT AND PLAN: Impression: Patient continues to report problems with concentration, losing things, and hyperactivity. She also reports problems with her memory and balance. We discussed concerns for polypharmacy and how some of her meds may be contributing to her symptoms, specifically her Cogentin which can produce anticholinergic effects. She has now weaned off Cogentin and Topamax. She reports issues with mood swings, irritability, depression and anxiety. She reports previous seizures with use of Lamictal.She is willing to try Depakote to help stabilize mood. She is aware to get labs done in 2 weeks andto get Depakote level first thing in the morning before her morning dose of medication. She was made aware that I will not prescribe any controlled substance such as Xanax due to her history of substance abuse. She is also aware that I do not recommend use of THC due to its potential adverse affects on mood and interactions with psychotropic medications. Assessment/Plan Diagnoses and all orders for this visit: Bipolar 2 disorder (HCC) - Valproic acid level, total; Future - Comprehensive metabolic panel; Future - divalproex (Depakote ER) 250 MG 24 hr tablet; Take 1 tablet (250 mg) by mouth in the morning and 1 tablet (250 mg) before bedtime. Do not crush, chew, or split. PTSD (post-traumatic stress disorder) JUVENAL (generalized anxiety disorder) History of substance use High risk medication use - Valproic acid level, total; Future - Comprehensive metabolic panel; Future Treatment Plan/Recommendations: - Continue Zoloft 150 mg for depression, anxiety and PTSD. - Continue Hydroxyzine as needed for anxiety. Okay to take up to 100 mg at bedtime for sleep. - Continue Risperdal to 3 mg in the morning and 2 mg at night for bipolar disorder. - Continue Wellbutrin SR to 200 mg BID for depression, inattention, fatigue, motivation. - Start Depakote 250 mg twice a day for bipolar disorder. - Check Depakote level and CMP in 2 weeks. - Continue counseling for additional mental health support and treatment. - Keep Neurology appointment in the future. - All labs are due in February 2025. - RTC in 3 weeks. Discussed any medication changes and follow-up plan with patient. Encouraged patient to call office sooner if symptoms worsen or if any questions/concerns arise. Patient was seen Televisit - Audio and Visual, Total time spent with patient was 20 minutes, which includes reviewing chart documents, previous notes/records, counseling and discussion with patient and/or coordination of care as described above. documented in this encounterKansas City VA Medical [id number] History of Present illness Narrative* NEYMAR Begum - 10/03/2024 4:00 PM EDT Images from the original note were not included. HPI: Tiana Kumar is a 39 y.o. female with a history of bipolar 2 disorder, PTSD, JUVENAL, and a historyof substance abuse. Patient is here today for follow-up via telehealth. Location of patient: Home; located in [place] Location of provider: Office; located in [place], [place] Patient seen via: [employer] [facility]; audio and video utilized Reason for televisit: Transportation issues Total time spent with patient: 30 minutes Did patient gave verbal consent for today's visit? Yes At patient's last visit on 08/01/24, her Zoloft was increased. She states she lost her cat around the same time that her Zoloft was increased. She states she felt improvement in her mood. She states she definitely has her moments that will come and go, but never last for consecutive days in a row.She states she continues to have problems with her memory, concentration, and losing things. She states that her counselor thinks that she needs to get tested for ADHD because of this. She states shecontinues to have auditory hallucinations where she hears music and sounds. She states that it is not bothering her as much as it has in the past. She states that she feels overwhelmed and stressed about a variety of things. She states that she was on Clonidine in the past for her ADHD but had to stop it because of caused her to have low blood pressure. She states she has also noticed balance issues, which have been ongoing for quite some time. She did not see Neurology as originally planned. She states that they keep cancelling on her. She states she did reach out to her PCP regarding this and is scheduled to see Dr. Smith ([facility] Neurology)in November. SUBJECTIVE: PAST MEDICAL HISTORY: Past Medical History: Diagnosis Date Akathisia Anxiety Bipolar disorder ([facility]) Chlamydia Chronic headaches Chronic UTI Depression Drug abuse ([facility]) cocaine abuse High cholesterol Personal history of medical treatment 02/2017 Pt never been hospitallzied, observed in ER for suicidal ideation. PTSD (post-traumatic stress disorder) MEDICATIONS: Current Outpatient Medications Medication Instructions atorvastatin (LIPITOR) 10 mg, Nightly benztropine (COGENTIN) 0.5 mg, Oral, Daily buPROPion SR (WELLBUTRIN SR) 200 mg, Oral, 2 times daily, Do not crush, chew, or split. ciclopirox (Loprox) 0.77 % cream Apply thin layer to affected area once a day, 30 day supply Ciclopirox 1 % shampoo Lather on wet hair, leave on 5 min, rinse 2-3 x week, 30 day supply docusate sodium (COLACE) 100 mg, Daily ergocalciferol (Vitamin D2) 1.25 MG (79756 UT) capsule 1 capsule, Weekly fluticasone (Flonase) 50 MCG/ACT nasal spray ADMINISTER 1 SPRAY INTO EACH NOSTRIL IN THE MORNING. hydrOXYzine pamoate (Vistaril) 50 MG capsule TAKE 1 CAPSULE BY MOUTH EVERY 6 (SIX) HOURS IF NEEDED FOR ANXIETY (MAY TAKE 2 CAPSULES AT BEDTIME FOR SLEEP) ibuprofen 800 MG tablet TAKE 1 TABLET BY MOUTH THREE TIMES A DAY WITH FOOD OR MILK NEEDED Vit-Fe Fumarate-FA (M- Plus) 27-1 MG tablet 1 tablet, Daily risperiDONE (RisperDAL) 2 MG tablet Take 1.5 tablet in the morning and 1 tablet at night. sertraline (ZOLOFT) 100 mg, Oral, Daily topiramate (TOPAMAX) 25 mg, Oral, 2 times daily, Take with 50 mg tablet for a total of 75 mg twice a day topiramate 50 MG tablet 1 tablet, Oral, 2 times daily, Take with 25 mg tablet for a total of 75 mg twice a day ALLERGIES: Allergies Allergen Reactions Amoxicillin Nausea Only Buspirone GI intolerance Codeine GI intolerance, Nausea Only and Unknown Other Reaction(s): Vomiting , Nausea Hydrocodone-Acetaminophen GI intolerance Lamictal [Lamotrigine] Seizures Seroquel [Quetiapine] Other Paranoia, Kaleigh Trazodone Other Nightmares SURGICAL HISTORY: Past Surgical History: Procedure Laterality Date COLONOSCOPY OVARIAN CYST REMOVAL Left 06/22/2023 PAP SMEAR 07/25/2020 SALPINGECTOMY Bilateral 06/22/2023 robotic assisted FAMILY HISTORY: Family History Problem Relation Name Age of Onset Hypertension Mother Anxiety disorder Father Depression Father Hyperlipidemia Father Kidney cancer Maternal Grandfather Leukemia Maternal Grandmother Lung cancer Paternal Grandfather Dementia Paternal Grandmother No Known Problems Daughter SOCIAL HISTORY: Social History Tobacco Use Smoking status: Every Day Current packs/day: 0.25 Types: Cigarettes Tobacco comments: Smokes 60 mins after waking up. 5 or less cigs a day. Vaping Use Vaping status: Every Day Substances: Nicotine, Flavoring Substance Use Topics Alcohol use: Not Currently Comment: caffeine intake: 1 cup coffee in the morning Drug use: Yes Types: Marijuana Comment: PAST COCAINE: route: intranasal; treatment program: [facility] and ; Have not injected drugs; There is a minor (18 years or younger) at risk at home (1 child); MARIJUANA: 3x/week - when her daughter is not there. Pt is very interested in trying oils Patient Care Team: Tiana Redman MD as PCP - General (Family Medicine) Yousif Jain CNM (Obstetrics and Gynecology) ALMA Begum- as Nurse Practitioner (Behavioral Health) PSYCHIATRIC REVIEW OF SYMPTOMS AND MENTAL STATUS EXAM ROS: Patient denies malaise, night sweats, weight loss, weight gain, cough, SOB, palpitations, chest pain, insomnia, dysphagia, abdominal pain, N/V/D, pruritus, rash, headache, dizziness, seizures, tremors, headache. Appearance Appearance: Normal grooming and hygiene. Appears stated age. Dressed appropriately for weather. Behavior Calm, cooperative, pleasant. Good posture. Psychomotor Activity Intact. No abnormal movements noted. Eye contact Good Speech Normal, clear, regular rate, rhythm and volume Affect Full range. Stable. Appropriate and congruent with mood. Mood Irritable Thought Process Organized, logical, and goal directed Thought Content: Denies suicidal and homicidal ideation. Perception: Denies visual hallucinations. Admits to auditory hallucinations. No evidence of delusions. Denies derealization and depersonalization. Cognition Alert and attentive during visit Memory Admits to poor memory. Insight Good. Acknowledges predominant symptoms of illness and need for treatment Judgement Fair OBJECTIVE: Visit Vitals OB Status No Periods Smoking Status Every Day Lab results: 02/17/24 - CBC, CMP, Vitamin D (56.5), A1C (5.3%), Lipids (LDL 122) ASSESSMENT AND PLAN: Impression: Patient continues to report problems with concentration, losing things, and hyperactivity. She also reports problems with her memory and balance. We discussed concerns for polypharmacy and how some of her meds may be contributing to her symptoms, specifically her Cogentin which can produce anticholinergic effects. We discussed weaning off of this medication, along with her Topamax to see if this helps. She is agreeable to trying to minimize her medications. She does want to remain on Risperidone and Hydroxyzine as she feels these have been the most beneficial for her. She wrote down weaning instructions to follow for the Topamax and Cogentin. She is aware that we may need to evaluate her for ADHD in the future once mood has been stabilized and she sees Neurology to rule out any other co-occurring disorders. She is also aware that she is not a candidate for stimulants due to her RENO history. Assessment/Plan Diagnoses and all orders for this visit: Bipolar 2 disorder (HCC) PTSD (post-traumatic stress disorder) JUVENAL (generalized anxiety disorder) History of substance use Current smoker Treatment Plan/Recommendations: - Continue Zoloft 150 mg for depression, anxiety and PTSD. - Decrease Cogentin to 0.25 mg daily for 1 week, then stop medication. - Continue Hydroxyzine as needed for anxiety. Okay to take up to 100 mg at bedtime for sleep. - Decrease Topamax to 50 mg BID for 1 week, then decrease to 25 mg BID for 1 week, then stop medication - Continue Risperdal to 3 mg in the morning and 2 mg at night for bipolar disorder. - Continue Wellbutrin SR to 200 mg BID for depression, inattention, fatigue, motivation. - Continue counseling for additional mental health support and treatment. - Keep Neurology appointment in the future. - RTC in 3 weeks. Discussed any medication changes and follow-up plan with patient. Encouraged patient to call office sooner if symptoms worsen or if any questions/concerns arise. Patient was seen Televisit - Audio and Visual, Total time spent with patient was 30 minutes, which includes reviewing chart documents, previous notes/records, counseling and discussion with patient and/or coordination of care as described above. documented in this encounterKansas City [facility] Medical [id number] History of Present illness Narrative* NEYMAR Begum - 08/01/2024 3:30 PM EDT Images from the original note were not included. HPI: Tiana Kumar is a 38 y.o. female with a history of bipolar 2 disorder, PTSD, JUVENAL, and a historyof substance abuse. Patient is here today for follow-up via telehealth. Location of patient: Home; located in [place] Location of provider: Office; located in [place], [place] Patient seen via: [employer]; audio and video utilized Reason for televisit: Transportation issues Total time spent with patient: 18 minutes Did patient gave verbal consent for today's visit? Yes No medication changes were made at patient's last visit on 07/12/24. She requested today's appointment to discuss problems with concentration. She states she has noticed this for several months and has become more problematic since starting to study for her peer support test. She states that she is having problems with concentration during these online courses that last 6 hours at a time. She states that she will tune out conversations, doesn't understand instructions, problems with remembering things. She states that when something comes in her mind, she has to do that task then or else it continues to be on her mind. She states her mood has been pretty good because my daughter is on vacation. She states she started taking 150 mg of Hydroxyzine at night on her own to help her sleep. Shestates she noticed this about a week ago. She states her mind doesn't stop . She states her cat that she considers her emotional support for the past 16 years has cancer. She states this affected her a lot when she first found out about it and doesn't know how to prepare herself for when the day comes. She states she is anxious about this but also doesn't know if its because I'm always worried about everything. She is scheduled to see Natalie Maldonado (Neurology) on August 11. SUBJECTIVE: PAST MEDICAL HISTORY: Past Medical History: Diagnosis Date Akathisia Anxiety Bipolar disorder ([facility]) Chlamydia Chronic headaches Chronic UTI Depression ([facility]) Drug abuse ([facility]) cocaine abuse High cholesterol ([facility]) Personal history of medical treatment 02/2017 Pt never been hospitallzied, observed in ER for suicidal ideation. PTSD (post-traumatic stress disorder) ([facility]) MEDICATIONS: Current Outpatient Medications Medication Instructions atorvastatin (LIPITOR) 10 mg, Nightly benztropine (COGENTIN) 0.5 mg, Oral, Daily buPROPion SR (WELLBUTRIN SR) 200 mg, Oral, 2 times daily, Do not crush, chew, or split. ciclopirox (Loprox) 0.77 % cream Apply thin layer to affected area once a day, 30 day supply Ciclopirox 1 % shampoo Lather on wet hair, leave on 5 min, rinse 2-3 x week, 30 day supply docusate sodium (COLACE) 100 mg, Daily ergocalciferol (Vitamin D2) 1.25 MG (39785 UT) capsule 1 capsule, Weekly fluticasone (Flonase) 50 MCG/ACT nasal spray ADMINISTER 1 SPRAY INTO EACH NOSTRIL IN THE MORNING. hydrOXYzine pamoate (VISTARIL) 50 mg, Oral, Every 6 hours PRN ibuprofen 800 MG tablet TAKE 1 TABLET BY MOUTH THREE TIMES A DAY WITH FOOD OR MILK NEEDED Vit-Fe Fumarate-FA (M-Abe Plus) 27-1 MG tablet 1 tablet, Daily risperiDONE (RisperDAL) 2 MG tablet Take 1.5 tablet in the morning and 1 tablet at night. sertraline (ZOLOFT) 100 mg, Oral, Daily topiramate (TOPAMAX) 25 mg, Oral, 2 times daily, Take with 50 mg tablet for a total of 75 mg twice a day topiramate 50 MG tablet 1 tablet, Oral, 2 times daily, Take with 25 mg tablet for a total of 75 mg twice a day ALLERGIES: Allergies Allergen Reactions Amoxicillin Nausea Only Buspirone GI intolerance Codeine GI intolerance, Nausea Only and Unknown Other Reaction(s): Vomiting , Nausea Hydrocodone-Acetaminophen GI intolerance Lamictal [Lamotrigine] Seizures Seroquel [Quetiapine] Other Paranoia, Kaleigh Trazodone Other Nightmares SURGICAL HISTORY: Past Surgical History: Procedure Laterality Date COLONOSCOPY OVARIAN CYST REMOVAL Left 06/22/2023 PAP SMEAR 07/25/2020 SALPINGECTOMY Bilateral 06/22/2023 robotic assisted FAMILY HISTORY: Family History Problem Relation Name Age of Onset Hypertension Mother Anxiety disorder Father Depression Father Hyperlipidemia Father Kidney cancer Maternal Grandfather Leukemia Maternal Grandmother Lung cancer Paternal Grandfather Dementia Paternal Grandmother No Known Problems Daughter SOCIAL HISTORY: Social History Tobacco Use Smoking status: Every Day Current packs/day: 0.25 Types: Cigarettes Tobacco comments: Smokes 60 mins after waking up. 5 or less cigs a day. Vaping Use Vaping status: Every Day Substances: Nicotine, Flavoring Substance Use Topics Alcohol use: Not Currently Comment: caffeine intake: 1 cup coffee in the morning Drug use: Yes Types: Marijuana Comment: PAST COCAINE: route: intranasal; treatment program: and ; Have not injected drugs; There is a minor (18 years or younger) at risk at home (1 child); MARIJUANA: 3x/week - when her daughter is not there. Pt is very interested in trying oils Patient Care Team: Tiana Redman MD as PCP - General (Family Medicine) Yousif Jain CNM (Obstetrics and Gynecology) KAT Begum as Nurse Practitioner (Behavioral Health) PSYCHIATRIC REVIEW OF SYMPTOMS AND MENTAL STATUS EXAM ROS: Patient denies fatigue, malaise, night sweats, weight loss, weight gain, cough, SOB, palpitations, chest pain, insomnia, dysphagia, abdominal pain, N/V/D, pruritus, rash, headache, dizziness, seizures, tremors, headache. Appearance Appearance: Normal grooming and hygiene. Appears stated age. Dressed appropriately for weather. Behavior Calm, cooperative, pleasant. Good posture. Psychomotor Activity Intact. No abnormal movements noted. Eye contact Good Speech Normal, clear, regular rate, rhythm and volume Affect Full range. Stable. Appropriate and congruent with mood. Mood Anxious and Depressed Thought Process Organized, logical, and goal directed Thought Content: Denies suicidal and homicidal ideation. Perception: Denies auditory or visual hallucinations. No evidence of delusions. Cognition Alert and attentive during visit Memory Immediate, recent and remote memory intact Insight Good. Acknowledges predominant symptoms of illness and need for treatment Judgement Good. Able to make reasonable life decisions. OBJECTIVE: Visit Vitals OB Status No Periods Smoking Status Every Day AIMS Scale: Facial and Oral Movements Muscles of Facial Expression: None, normal Lips and Perioral Area: None, normal Jaw: None, normal Tongue: None, normal Extremity Movements Upper (Arms, Wrists, Hands, Fingers): None, normal Lower (Legs, Knees, Ankles, Toes): None, normal Trunk Movements Neck, Shoulders, Hips: None, normal Overall Severity Incapacitation Due to Abnormal Movements: None, normal Dental Status Current Problems with Teeth and/or Dentures: No Does patient usually wear dentures?: No Lab results: 02/17/24 - CBC, CMP, Vitamin D (56.5), A1C (5.3%), Lipids (LDL 122) ASSESSMENT AND PLAN: Impression: : Patient has been having problems with concentration for a few months. She is also having co-occurring anxiety and depression. We discussed treatment options to help target these symptoms. She is agreeable to increasing Zoloft and Wellbutrin for this. She is not a candidate for stimulants due to her RENO history. Assessment/Plan Diagnoses and all orders for this visit: Bipolar 2 disorder ([facility]) PTSD (post-traumatic stress disorder) ([facility]) JUVENAL (generalized anxiety disorder) ([facility]) History of substance use Current smoker Treatment Plan/Recommendations: - Increase Zoloft to 100 mg for depression, anxiety and PTSD. - Continue Cogentin for hx of akathisia. - Continue Hydroxyzine as needed for anxiety. Okay to take up to 100 mg at bedtime for sleep. - Continue Topamax to for mood stabilizer and relapse prevention. Patient aware of off-label use and desires to continue medication. - Continue Risperdal to 3 mg in the morning and 2 mg at night for bipolar disorder. - Increase Wellbutrin SR to 200 mg BID for depression, inattention, fatigue, motivation. - Continue counseling for additional mental health support and treatment. - RTC at scheduled appointment on October 03. Discussed any medication changes and follow-up plan with patient. Encouraged patient to call office sooner if symptoms worsen or if any questions/concernsarise. Patient was seen Televisit - Audio and Visual, Total time spent with patient was 20 minutes, which includes reviewing chart documents, previous notes/records, counseling and discussion with patient and/or coordination of care as described above. documented in this encounterKansas City VA Medical [id number] History of Present illness Narrative* NEYMAR Begum - 07/12/2024 11:30 AM EDT Images from the original note were not included. HPI: Tiana Kumar is a 38 y.o. female with a history of bipolar 2 disorder, PTSD, JUVENAL, and a historyof substance abuse. Patient is here today for follow-up via telehealth. Location of patient: Home; located in [place] Location of provider: Office; located in [place], [place] Patient seen via: [employer] [facility]; audio and video utilized Reason for televisit: Transportation issues Total time spent with patient: 14 minutes Did patient gave verbal consent for today's visit? Yes No medication changes were made at patient's last visit on 05/16/24. She states she has been depressed because her cat is going through some medical issues and will likely need to be put down. She states she started smoking hear and there because of her stress. She states she still doesn't smoke asmuch as she used to. She remains sober. Overall, she feels that her medications are working well. She denies any side effects from her medications. She states that she has not see Neurologist yet because they have cancelled her appointment 3 times. She continues both EMDR and AOD treatment with her counselors. She is also doing peer support classes. She is hoping to become a peer supporter in the future and find a job in this. SUBJECTIVE: PAST MEDICAL HISTORY: Past Medical History: Diagnosis Date Akathisia Anxiety Bipolar disorder ([facility]) Chlamydia Chronic headaches Chronic UTI Depression ([facility]) Drug abuse ([facility]) cocaine abuse High cholesterol ([facility]) Personal history of medical treatment 02/2017 Pt never been hospitallzied, observed in ER for suicidal ideation. PTSD (post-traumatic stress disorder) ([facility]) MEDICATIONS: Current Outpatient Medications Medication Instructions atorvastatin (LIPITOR) 10 mg, Nightly benztropine (COGENTIN) 0.5 mg, Oral, Daily buPROPion SR (WELLBUTRIN SR) 150 mg, Oral, 2 times daily, Do not crush, chew, or split. ciclopirox (Loprox) 0.77 % cream Apply thin layer to affected area once a day, 30 day supply Ciclopirox 1 % shampoo Lather on wet hair, leave on 5 min, rinse 2-3 x week, 30 day supply docusate sodium (COLACE) 100 mg, Daily ergocalciferol (Vitamin D2) 1.25 MG (75780 UT) capsule 1 capsule, Weekly fluticasone (Flonase) 50 MCG/ACT nasal spray ADMINISTER 1 SPRAY INTO EACH NOSTRIL IN THE MORNING. hydrOXYzine pamoate (VISTARIL) 50 mg, Oral, Every 6 hours PRN ibuprofen 800 MG tablet TAKE 1 TABLET BY MOUTH THREE TIMES A DAY WITH FOOD OR MILK NEEDED Vit-Fe Fumarate-FA (M- Plus) 27-1 MG tablet 1 tablet, Daily risperiDONE (RisperDAL) 2 MG tablet Take 1.5 tablet in the morning and 1 tablet at night. sertraline (ZOLOFT) 50 mg, Oral, Daily topiramate (TOPAMAX) 25 mg, Oral, 2 times daily, Take with 50 mg tablet for a total of 75 mg twice a day topiramate 50 MG tablet 1 tablet, Oral, 2 times daily, Take with 25 mg tablet for a total of 75 mg twice a day ALLERGIES: Allergies Allergen Reactions Amoxicillin Nausea Only Buspirone GI intolerance Codeine GI intolerance, Nausea Only and Unknown Other Reaction(s): Vomiting , Nausea Hydrocodone-Acetaminophen GI intolerance Lamictal [Lamotrigine] Seizures Seroquel [Quetiapine] Other Paranoia, Kaleigh Trazodone Other Nightmares SURGICAL HISTORY: Past Surgical History: Procedure Laterality Date COLONOSCOPY OVARIAN CYST REMOVAL Left 06/22/2023 PAP SMEAR 07/25/2020 SALPINGECTOMY Bilateral 06/22/2023 robotic assisted FAMILY HISTORY: Family History Problem Relation Name Age of Onset Hypertension Mother Anxiety disorder Father Depression Father Hyperlipidemia Father Kidney cancer Maternal Grandfather Leukemia Maternal Grandmother Lung cancer Paternal Grandfather Dementia Paternal Grandmother No Known Problems Daughter SOCIAL HISTORY: Social History Tobacco Use Smoking status: Every Day Current packs/day: 0.25 Types: Cigarettes Tobacco comments: Smokes 60 mins after waking up. 5 or less cigs a day. Vaping Use Vaping status: Every Day Substances: Nicotine, Flavoring Substance Use Topics Alcohol use: Not Currently Comment: caffeine intake: 1 cup coffee in the morning Drug use: Yes Types: Marijuana Comment: PAST COCAINE: route: intranasal; treatment program: and ; Have not injected drugs; There is a minor (18 years or younger) at risk at home (1 child); MARIJUANA: 3x/week - when her daughter is not there. Pt is very interested in trying oils Patient Care Team: Tiana Redman MD as PCP - General (Family Medicine) Yousif Jain CNM (Obstetrics and Gynecology) KAT Begum as Nurse Practitioner (Behavioral Health) PSYCHIATRIC REVIEW OF SYMPTOMS AND MENTAL STATUS EXAM ROS: Patient denies fatigue, malaise, night sweats, weight loss, weight gain, cough, SOB, palpitations, chest pain, insomnia, dysphagia, abdominal pain, N/V/D, pruritus, rash, headache, dizziness, seizures, tremors, headache. Appearance Appearance: Normal grooming and hygiene. Appears stated age. Dressed appropriately for weather. Behavior Calm, cooperative, pleasant. Good posture. Psychomotor Activity Intact. No abnormal movements noted. Eye contact Good Speech Normal, clear, regular rate, rhythm and volume Affect Full range. Stable. Appropriate and congruent with mood. Mood Euthymic Thought Process Organized, logical, and goal directed Thought Content: Denies suicidal and homicidal ideation. Perception: Denies auditory or visual hallucinations. No evidence of delusions. Denies derealization and depersonalization. Cognition Alert and attentive during visit Memory Immediate, recent and remote memory intact Insight Good. Acknowledges predominant symptoms of illness and need for treatment Judgement Good. Able to make reasonable life decisions. OBJECTIVE: Visit Vitals OB Status No Periods Smoking Status Every Day Lab results: 02/17/24 - CBC, CMP, Vitamin D (56.5), A1C (5.3%), Lipids (LDL 122) ASSESSMENT AND PLAN: Impression: Patient reports improvement in overall symptoms since last visit. Reinforced benefits and limitation of medication for her mental health concerns. Encouraged continued minimizing of meds to decrease any risk of side effects. She desires to continue medications at current doses. Assessment/Plan Diagnoses and all orders for this visit: Bipolar 2 disorder ([facility]) PTSD (post-traumatic stress disorder) ([facility]) JUVENAL (generalized anxiety disorder) ([facility]) History of substance use Current smoker Treatment Plan/Recommendations: - Continue Zoloft for depression, anxiety and PTSD. - Continue Cogentin for hx of akathisia. - Continue Hydroxyzine as needed for anxiety. Okay to take up to 100 mg at bedtime for sleep. - Continue Topamax to for mood stabilizer and relapse prevention. Patient aware of off-label use and desires to continue medication. - Continue Risperdal to 3 mg in the morning and 2 mg at night for bipolar disorder. - Continue Wellbutrin for smoking cessation and depression. - Continue counseling for additional mental health support and treatment. - RTC in 3 months. Discussed any medication changes and follow-up plan with patient. Encouraged patient to call office sooner if symptoms worsen or if any questions/concerns arise. Patient was seen Televisit - Audio and Visual, Total time spent with patient was 15 minutes, which includes reviewing chart documents, previous notes/records, counseling and discussion with patient and/or coordination of care as described above. documented in this encounterKansas City VA Medical [id number] History of Present illness Narrative* Monroe Funez, PMHNP-BC - 05/16/2024 11:30 AM EST Images from the original note were not included. HPI: Tiana Kumar is a 38 y.o. female with a history of bipolar 2 disorder, PTSD, JUVENAL, and a historyof substance abuse. Patient is here today for follow-up via telehealth. Location of patient: Home; located in [place] Location of provider: Office; located in [place], [place] Patient seen via: [employer] [facility]; audio and video utilized Reason for televisit: Transportation issues Total time spent with patient: 13 minutes Did patient gave verbal consent for today's visit? Yes At patient's last visit on 04/18/24, her morning dose of Risperdal was increased to 3 mg. She reportsher AH has gone away since the increase in dose. She states that her mood has also improved. She states that she is going to be seeing Neurology on July 11 to talk about her vision changes. She report some episodes where she will stare and feel like she is not present. She states that she is going to start journaling about these episodes to see if there are any triggers associated with this. She continues both EMDR and AOD treatment with her counselors. SUBJECTIVE: PAST MEDICAL HISTORY: Past Medical History: Diagnosis Date Akathisia Anxiety Bipolar disorder ([facility]) Chlamydia Chronic headaches Chronic UTI Depression ([facility]) Drug abuse ([facility]) cocaine abuse High cholesterol ([facility]) Personal history of medical treatment 02/2017 Pt never been hospitallzied, observed in ER for suicidal ideation. PTSD (post-traumatic stress disorder) ([facility]) MEDICATIONS: Current Outpatient Medications Medication Instructions atorvastatin (LIPITOR) 10 mg, Nightly benztropine (COGENTIN) 0.5 mg, Oral, Daily buPROPion SR (WELLBUTRIN SR) 150 mg, Oral, 2 times daily, Do not crush, chew, or split. ciclopirox (Loprox) 0.77 % cream Apply thin layer to affected area once a day, 30 day supply Ciclopirox 1 % shampoo Lather on wet hair, leave on 5 min, rinse 2-3 x week, 30 day supply docusate sodium (COLACE) 100 mg, Daily ergocalciferol (Vitamin D2) 1.25 MG (77810 UT) capsule 1 capsule, Weekly fluticasone (Flonase) 50 MCG/ACT nasal spray ADMINISTER 1 SPRAY INTO EACH NOSTRIL IN THE MORNING. hydrOXYzine pamoate (VISTARIL) 50 mg, Oral, Every 6 hours PRN ibuprofen 800 MG tablet TAKE 1 TABLET BY MOUTH THREE TIMES A DAY WITH FOOD OR MILK NEEDED Vit-Fe Fumarate-FA (M- Plus) 27-1 MG tablet 1 tablet, Daily risperiDONE (RisperDAL) 2 MG tablet Take 1.5 tablet in the morning and 1 tablet at night. sertraline (ZOLOFT) 50 mg, Oral, Daily topiramate (TOPAMAX) 25 mg, Oral, 2 times daily, Take with 50 mg tablet for a total of 75 mg twice a day topiramate 50 MG tablet 1 tablet, Oral, 2 times daily, Take with 25 mg tablet for a total of 75 mg twice a day ALLERGIES: Allergies Allergen Reactions Amoxicillin Nausea Only Buspirone GI intolerance Codeine GI intolerance, Nausea Only and Unknown Other Reaction(s): Vomiting , Nausea Hydrocodone-Acetaminophen GI intolerance Lamictal [Lamotrigine] Seizures Seroquel [Quetiapine] Other Paranoia, Kaleigh Trazodone Other Nightmares SURGICAL HISTORY: Past Surgical History: Procedure Laterality Date COLONOSCOPY OVARIAN CYST REMOVAL Left 06/22/2023 PAP SMEAR 07/25/2020 SALPINGECTOMY Bilateral 06/22/2023 robotic assisted FAMILY HISTORY: Family History Problem Relation Name Age of Onset Hypertension Mother Anxiety disorder Father Depression Father Hyperlipidemia Father Kidney cancer Maternal Grandfather Leukemia Maternal Grandmother Lung cancer Paternal Grandfather Dementia Paternal Grandmother No Known Problems Daughter SOCIAL HISTORY: Social History Tobacco Use Smoking status: Every Day Current packs/day: 0.25 Types: Cigarettes Tobacco comments: Smokes 60 mins after waking up. 5 or less cigs a day. Vaping Use Vaping status: Every Day Substances: Nicotine, Flavoring Substance Use Topics Alcohol use: Not Currently Comment: caffeine intake: 1 cup coffee in the morning Drug use: Yes Types: Marijuana Comment: PAST COCAINE: route: intranasal; treatment program: [facility] ; Have not injected drugs; There is a minor (18 years or younger) at risk at home (1 child); MARIJUANA: 3x/week - when her daughter is not there. Pt is very interested in trying oils Patient Care Team: Tiana Redman MD as PCP - General (Family Medicine) Yousif Jain CNM (Obstetrics and Gynecology) ALMA Begum- as Nurse Practitioner (Behavioral Health) PSYCHIATRIC REVIEW OF SYMPTOMS AND MENTAL STATUS EXAM ROS: Patient denies fatigue, malaise, night sweats, weight loss, weight gain, cough, SOB, palpitations, chest pain, insomnia, dysphagia, abdominal pain, N/V/D, pruritus, rash, headache, dizziness, seizures, tremors, headache. Appearance Appearance: Normal grooming and hygiene. Appears stated age. Dressed appropriately for weather. Behavior Calm, cooperative, pleasant. Good posture. Psychomotor Activity Intact. No abnormal movements noted. Eye contact Good Speech Normal, clear, regular rate, rhythm and volume Affect Full range. Stable. Appropriate and congruent with mood. Mood Euthymic Thought Process Organized, logical, and goal directed Thought Content: Denies suicidal and homicidal ideation. Perception: Denies auditory hallucinations. No evidence of delusions. Cognition Alert and attentive during visit Memory Immediate, recent and remote memory intact Insight Good. Acknowledges predominant symptoms of illness and need for treatment Judgement Good. Able to make reasonable life decisions. OBJECTIVE: Visit Vitals OB Status No Periods Smoking Status Every Day AIMS Score: Facial and Oral Movements Muscles of Facial Expression: None, normal Lips and Perioral Area: None, normal Jaw: None, normal Tongue: None, normal Extremity Movements Upper (Arms, Wrists, Hands, Fingers): None, normal Lower (Legs, Knees, Ankles, Toes): None, normal Trunk Movements Neck, Shoulders, Hips: None, normal Dental Status Current Problems with Teeth and/or Dentures: Yes Does patient usually wear dentures?: No Lab results: 02/17/24 - CBC, CMP, Vitamin D (56.5), A1C (5.3%), Lipids (LDL 122) ASSESSMENT AND PLAN: Impression: Patient reports improvement in overall symptoms since last visit. Reinforced benefits and limitation of medication for her mental health concerns. Encouraged continued minimizing of meds to decrease any risk of side effects. Assessment/Plan Diagnoses and all orders for this visit: Bipolar 2 disorder (CMS/[facility]) - risperiDONE (RisperDAL) 2 MG tablet; Take 1.5 tablet in the morning and 1 tablet at night. PTSD (post-traumatic stress disorder) ([facility]/HCC) JUVENAL (generalized anxiety disorder) ([facility]) History of substance use Treatment Plan/Recommendations: - Continue Zoloft 50 mg daily for symptoms related to depression, anxiety and PTSD. - Continue Cogentin 0.5 mg daily for hx of akathisia. - Continue Hydroxyzine 50 mg q6h as needed for anxiety. Okay to take 100 mg at bedtime for sleep. - Continue Topamax to 75 mg BID for mood stabilizer and relapse prevention. Patient aware of off-label use and desires to continue medication. - Continue Risperdal to 3 mg in the morning and 2 mg at night for bipolar disorder. - Continue Wellbutrin 150 mg BID for smoking cessation. Will plan to stop medication at next visit. - Continue counseling for additional mental health support and treatment. - RTC in 2 months. Discussed any medication changes and follow-up plan with patient. Encouraged patient to call office sooner if symptoms worsen or if any questions/concerns arise. Patient was seen Televisit - Audio and Visual, Total time spent with patient was 13 minutes, which includes reviewing chart documents, previous notes/records, counseling and discussion with patient and/or coordination of care as described above. documented in this encounterKansas City [facility] Medical [id number] History of Present illness Narrative* Monroe Funez NP - 04/18/2024 11:30 AM EST Images from the original note were not included. Tiana Kumar is a 38 y.o. female with a history of bipolar 2 disorder, PTSD, JUVENAL, history of substance abuse who presents for psychiatric medication follow-up. Location of patient: Home; located in [place] Location of provider: Office; located in [place], [place] Patient seen via: [employer]; audio and video utilized Reason for televisit: Transportation issues Total time spent with patient: 38 minutes Did patient gave verbal consent for today's visit? Yes HPI: At her last visit on 03/21/23, her Topamax was increased to 75 mg BID. She reports moods are okay. She states she continues to have intermittent things that she sees out of the corner in her eye. She states that the most recent one was seeing her mom in the [place] but she wasn't there. She states that she doesn't get bothered by the things she sees. She states that its the negative voices that botherher the most, especially when she is in public. She states that she notices she forgets to eat because she feels like she is doing too much throughout the day. She states then she tends to overeat at night. She states her weight is stable. She is going to be talking to her PCP next week about constipation because she deals with this almost on a daily basis. She states she takes a daily stool softener twice a day and also has to do enemas to help her. She states that she continues to notice problems with her vision shaking. She states that she feelslike if she tries to focus on stuff that her one eye moves away from what she is focusing on. She states she saw the eye doctor who gave her a new prescription for glasses. She continues both EMDR and AOD treatment with her counselors. She states she has not smoked for over 1.5 months since being on the Wellbutrin. SUBJECTIVE: PAST MEDICAL HISTORY: Past Medical History: Diagnosis Date Akathisia Anxiety Bipolar disorder ([facility]) Chlamydia Chronic headaches Chronic UTI Depression ([facility]) Drug abuse ([facility]) cocaine abuse High cholesterol ([facility]) Personal history of medical treatment 02/2017 Pt never been hospitallzied, observed in ER for suicidal ideation. PTSD (post-traumatic stress disorder) ([facility]) MEDICATIONS: Current Outpatient Medications Medication Instructions atorvastatin (LIPITOR) 10 mg, Nightly benztropine (COGENTIN) 0.5 mg, Oral, Daily buPROPion SR (WELLBUTRIN SR) 150 mg, Oral, 2 times daily, Do not crush, chew, or split. ciclopirox (Loprox) 0.77 % cream Apply thin layer to affected area once a day, 30 day supply Ciclopirox 1 % shampoo Lather on wet hair, leave on 5 min, rinse 2-3 x week, 30 day supply docusate sodium (COLACE) 100 mg, Daily ergocalciferol (Vitamin D2) 1.25 MG (91760 UT) capsule 1 capsule, Weekly fluticasone (Flonase) 50 MCG/ACT nasal spray ADMINISTER 1 SPRAY INTO EACH NOSTRIL IN THE MORNING. hydrOXYzine pamoate (VISTARIL) 50 mg, Oral, Every 6 hours PRN ibuprofen 800 MG tablet TAKE 1 TABLET BY MOUTH THREE TIMES A DAY WITH FOOD OR MILK NEEDED Vit-Fe Fumarate-FA (M- Plus) 27-1 MG tablet 1 tablet, Daily risperiDONE (RISPERDAL) 2 mg, Oral, 2 times daily sertraline (ZOLOFT) 50 mg, Oral, Daily topiramate (TOPAMAX) 25 mg, Oral, 2 times daily, Take with 50 mg tablet for a total of 75 mg twice a day topiramate 50 MG tablet 1 tablet, Oral, 2 times daily, Take with 25 mg tablet for a total of 75 mg twice a day ALLERGIES: Allergies Allergen Reactions Amoxicillin Nausea Only Buspirone GI intolerance Codeine GI intolerance, Nausea Only and Unknown Other Reaction(s): Vomiting , Nausea Hydrocodone-Acetaminophen GI intolerance Lamictal [Lamotrigine] Seizures Seroquel [Quetiapine] Other Paranoia, Kaleigh Trazodone Other Nightmares SURGICAL HISTORY: Past Surgical History: Procedure Laterality Date COLONOSCOPY OVARIAN CYST REMOVAL Left 06/22/2023 PAP SMEAR 07/25/2020 SALPINGECTOMY Bilateral 06/22/2023 robotic assisted FAMILY HISTORY: Family History Problem Relation Name Age of Onset Hypertension Mother Anxiety disorder Father Depression Father Hyperlipidemia Father Kidney cancer Maternal Grandfather Leukemia Maternal Grandmother Lung cancer Paternal Grandfather Dementia Paternal Grandmother No Known Problems Daughter SOCIAL HISTORY: Social History Tobacco Use Smoking status: Every Day Current packs/day: 0.25 Types: Cigarettes Tobacco comments: Smokes 60 mins after waking up. 5 or less cigs a day. Vaping Use Vaping status: Every Day Substances: Nicotine, Flavoring Substance Use Topics Alcohol use: Not Currently Comment: caffeine intake: 1 cup coffee in the morning Drug use: Yes Types: Marijuana Comment: PAST COCAINE: route: intranasal; treatment program: and ; Have not injected drugs; There is a minor (18 years or younger) at risk at home (1 child); MARIJUANA: 3x/week - when her daughter is not there. Pt is very interested in trying oils Depression: At risk (01/27/2024) PHQ-2 PHQ-2 Score: 6 Patient Care Team: Tiana Redman MD as PCP - General (Family Medicine) Yousif Jain CNM (Obstetrics and Gynecology) Monroe Funez NP as Nurse Practitioner (Behavioral Health) PSYCHIATRIC REVIEW OF SYMPTOMS AND MENTAL STATUS EXAM ROS: Patient denies fatigue, malaise, night sweats, weight loss, weight gain, cough, SOB, palpitations, chest pain, insomnia, dysphagia, abdominal pain, N/V/D, pruritus, rash, headache, dizziness, seizures, tremors, headache. Appearance Appearance: Casual dress, normal grooming and hygiene Behavior Cooperative, conversant, engaged, and with good eye contact. Speech Normal, clear, regular rate, rhythm and volume Affect full affect appropriate with mood Mood Anxious Thought Process Organized and Clear Thought Content: Denies suicidal and homicidal ideation. Perception: Denies tactile hallucinations. Admits to VH and AH. Orientation Appropriate to age Memory/Concentration She reports some problems with her short term memory. Insight/Judgement Fair OBJECTIVE: Visit Vitals OB Status No Periods Smoking Status Every Day Lab results: 02/17/24 - CBC, CMP, Vitamin D (56.5), A1C (5.3%), Lipids (LDL 122) ASSESSMENT AND PLAN: Impression: Patient reports improvement in mood with increased Topamax dose. Continues to report VHand AH. States that the AH does not bother her but the VH does. Discussed how this could be relatedto her PTSD as she reports the VH is mostly people saying negative things to her and that is what she experienced her entire upbringing. Reinforced benefits and limitation of medication for her mental health concerns. Encouraged continued minimizing of meds to decrease any risk of side effects. Shereports VH is bothersome to her and is wanting to adjust medication to help with this. Discussed increased Risperdal versus switching to a newer SGA such as Rexulti, which has shown some benefit for PTSD when used with Sertraline. Patient wants to continue on Risperdal at this time and requests to increase morning dose as most of her symptoms occur during the day. Assessment/Plan Diagnoses and all orders for this visit: Bipolar 2 disorder (CMS/HCC) PTSD (post-traumatic stress disorder) ([facility]/HCC) JUVENAL (generalized anxiety disorder) (CMS/[facility]) History of substance use Current smoker Treatment Plan/Recommendations: 1) Continue Zoloft 50 mg daily for symptoms related to depression, anxiety and PTSD. 2) Continue Cogentin 0.5 mg daily for hx of akathisia. 3) Continue Hydroxyzine 50 mg q6h as needed for anxiety. Okay to take 100 mg at bedtime for sleep. 4) Continue Topamax to 75 mg BID for mood stabilizer and relapse prevention. Patient aware of off-label use and desires to continue medication. 5) Increase Risperdal to 3 mg in the morning and 2 mg at night for bipolar disorder. 6) Continue Wellbutrin 150 mg BID for smoking cessation. Will continue for 2 additional months. 7) Continue counseling for additional mental health support and treatment. 8) Talk to PCP next week about constipation and vision changes. 8) Follow-up in 3-4 weeks. Discussed any medication changes and follow-up plan with patient. Encouraged patient to call office sooner if symptoms worsen or if any questions/concerns arise. Patient was seen Televisit - Audio and Visual, Total time spent with patient was 35 minutes, which includes reviewing chart documents, previous notes/records, counseling and discussion with patient and/or coordination of care as described above. documented in this encounterKansas City [facility] Medical [id number] History of Present illness Narrative* Monroe Funez NP - 03/21/2024 3:00 PM EST Images from the original note were not included. Tiana Kumar is a 38 y.o. female with a history of bipolar 2 disorder, PTSD, JUVENAL, history of substance abuse who presents for psychiatric medication follow-up. Location of patient: Home; located in [place] Location of provider: Office; located in [place], [place] Patient seen via: [employer]; audio and video utilized Reason for televisit: Transportation issues Total time spent with patient: 25 minutes Did patient gave verbal consent for today's visit? Yes HPI: Patient was seen for initial intake on 12/28/23. At her last visit on 02/29/24, she had just restarted her Wellbutrin and Risperdal due to accidentally mixing up her medications. She reports she is noticing being irritable and gonzales. This is an ongoing issue for her. She statesshe has noticed herself cleaning and reorganizing things throughout the day. She states that she doesn't have a car to go anywhere right now and feels that she is using her time to clean. She reportsappetite and sleep are normal. She states that she still notices some shakiness in vision like her eyes are going back and forth. She reports that she saw eye doctor last week who said she needs glasses but nothing else was mentioned with her eyes. She saw her EMDR and AOD counselors last week. She states her AOD counselor recommended she stop smoking. She states Wellbutrin has worked well and she has not smoked in 3 days. She states that she has not restarted her EMDR therapy because her counselor wants her mood more stable before starting. Patient denies abuse of substances. SUBJECTIVE: PAST MEDICAL HISTORY: Past Medical History: Diagnosis Date Akathisia Anxiety Bipolar disorder ([facility]) Chlamydia Chronic headaches Chronic UTI Depression ([facility]) Drug abuse ([facility]) cocaine abuse High cholesterol ([facility]) Personal history of medical treatment 02/2017 Pt never been hospitallzied, observed in ER for suicidal ideation. PTSD (post-traumatic stress disorder) ([facility]) ALLERGIES: Allergies Allergen Reactions Amoxicillin Nausea Only Buspirone GI intolerance Codeine GI intolerance, Nausea Only and Unknown Other Reaction(s): Vomiting , Nausea Hydrocodone-Acetaminophen GI intolerance Lamictal [Lamotrigine] Seizures Seroquel [Quetiapine] Other Paranoia, Kaleigh Trazodone Other Nightmares SURGICAL HISTORY: Past Surgical History: Procedure Laterality Date COLONOSCOPY OVARIAN CYST REMOVAL Left 06/22/2023 PAP SMEAR 07/25/2020 SALPINGECTOMY Bilateral 06/22/2023 robotic assisted FAMILY HISTORY: Family History Problem Relation Name Age of Onset Hypertension Mother Anxiety disorder Father Depression Father Hyperlipidemia Father Kidney cancer Maternal Grandfather Leukemia Maternal Grandmother Lung cancer Paternal Grandfather Dementia Paternal Grandmother No Known Problems Daughter SOCIAL HISTORY: Social History Tobacco Use Smoking status: Every Day Current packs/day: 0.25 Types: Cigarettes Tobacco comments: Smokes 60 mins after waking up. 5 or less cigs a day. Vaping Use Vaping status: Every Day Substances: Nicotine, Flavoring Substance Use Topics Alcohol use: Not Currently Comment: caffeine intake: 1 cup coffee in the morning Drug use: Yes Types: Marijuana Comment: PAST COCAINE: route: intranasal; treatment program: Tues and Thurs; Have not injected drugs; There is a minor (18 years or younger) at risk at home (1 child); MARIJUANA: 3x/week - when her daughter is not there. Pt is very interested in trying oils Depression: At risk (01/27/2024) PHQ-2 PHQ-2 Score: 6 WOMEN'S HEALTH: Sexually active: Denies Contraception: Tubes removed Patient Care Team: Tiana Redman MD as PCP - General (Family Medicine) Yousif Jain CNM (Obstetrics and Gynecology) Monroe Funez NP as Nurse Practitioner (Behavioral Health) PSYCHIATRIC REVIEW OF SYMPTOMS AND MENTAL STATUS EXAM ROS: Patient denies malaise, night sweats, weight loss, weight gain, cough, SOB, palpitations, chest pain, insomnia, dysphagia, abdominal pain, N/V/D, pruritus, rash, headache, dizziness, seizures, tremors, headache. Appearance Appearance: Casual dress, normal grooming and hygiene Behavior Cooperative, conversant, engaged, and with good eye contact. No abnormal movements. Speech Normal, clear, regular rate, rhythm and volume Affect full affect appropriate with mood Mood Admits to feeling gonzales and irritable Thought Process Organized and Clear Thought Content: Denies suicidal and homicidal ideation. Perception: Denies auditory and tactile hallucinations. 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 Discussed expectations and roles of her medications, as well as the role of counseling to help. Discussed her past experiences and how this may be influencing her mood or reactions today. Discussed switching her to Depakote for mood stabilization. Patient reports trying to get off Topamax previously and then feeling like her moodworsened within a few days. She states she does not want that to happen again so she is agreeable to increasing Topamax. Assessment/Plan Diagnoses and all orders for this visit: Bipolar 2 disorder ([facility]) PTSD (post-traumatic stress disorder) ([facility]) JUVENAL (generalized anxiety disorder) ([facility]) History of substance use Current smoker Treatment Plan/Recommendations: 1) Continue Zoloft 50 mg daily for symptoms related to depression, anxiety and PTSD. 2) Continue Cogentin 0.5 mg daily for hx of akathisia. 3) Continue Hydroxyzine 50 mg q6h as needed for anxiety. Okay to take 100 mg at bedtime for sleep. 4) Increase Topamax to 75 mg BID for mood stabilizer and relapse prevention. Patient aware of off-label use and desires to continue medication. 5) Continue Risperdal to 2 mg BID for bipolar disorder. 6) Continue Wellbutrin 150 mg BID for smoking cessation. Will continue for 2 additional months. 7) Continue counseling for additional mental health support and treatment. 8) Follow-up in 1 month. Discussed any medication changes and follow-up plan with patient. Encouraged patient to call office sooner if symptoms worsen or if any questions/concerns arise. Patient was seen Televisit - Audio and Visual, Total time spent with patient was 30 minutes, which includes reviewing chart documents, previous notes/records, counseling and discussion with patient and/or coordination of care as described above. documented in this encounterKansas City [facility] Medical [id number] History of Present illness Narrative* Monroe Funez NP - 02/29/2024 10:30 AM EST Images from the original note were not included. Tiana Kumar is a 38 y.o. female presents for psychiatric medication follow-up. Location of patient: Home; located in [place] Location of provider: Office; located in [place], [place] Patient seen via: [employer]; audio and video utilized Reason for televisit: Transportation issues Total time spent with patient: 14 minutes Did patient gave verbal consent for today's visit? Yes HPI: Patient was seen for initial intake on 12/28/23. At her last visit on 01/27/24, she desired to try Wellbutrin for smoking cessation. Patient did send a message through patient portal over the weekendstating that she realized she hasn't been taking the Risperidone for 10 days. She states that she forgot to put it in her pill box but didn't realize until Sunday 02/25. She states she restarted her R isperidone on 02/25 and is back on BID dosing. She also restarted Wellbutrin on Sunday 02/25 as shefelt it was working for her smoking cessation. She states she is already noticing improvement in her sleep, mood, and hallucinations since restarting Risperidone. She states she is seeing counselor again on and is hoping to restart EMDR treatment. She states she notices some shakiness in vision where her eyes are going back and forth. She noticed this developed over the past few weeks and is scheduled to see eye doctor next month to discuss this. She states she notices things out of the corner of her eyes that look like figures. She reports this has been going on for 6 months or so. She states that it is not distressing or scary to her, but that she just notices it. Patient denies abuse of substances. SUBJECTIVE: PAST MEDICAL HISTORY: Past Medical History: Diagnosis Date Akathisia Anxiety Bipolar disorder ([facility]) Chlamydia Chronic headaches Chronic UTI Depression ([facility]) Drug abuse ([facility]) cocaine abuse High cholesterol ([facility]) Personal history of medical treatment 02/2017 Pt never been hospitallzied, observed in ER for suicidal ideation. PTSD (post-traumatic stress disorder) ([facility]) ALLERGIES: Allergies Allergen Reactions Amoxicillin Nausea Only Buspirone GI intolerance Codeine GI intolerance, Nausea Only and Unknown Other Reaction(s): Vomiting , Nausea Hydrocodone-Acetaminophen GI intolerance Lamictal [Lamotrigine] Seizures Seroquel [Quetiapine] Other Paranoia, Kaleigh Trazodone Other Nightmares SURGICAL HISTORY: Past Surgical History: Procedure Laterality Date COLONOSCOPY OVARIAN CYST REMOVAL Left 06/22/2023 PAP SMEAR 07/25/2020 SALPINGECTOMY Bilateral 06/22/2023 robotic assisted FAMILY HISTORY: Family History Problem Relation Name Age of Onset Hypertension Mother Anxiety disorder Father Depression Father Hyperlipidemia Father Kidney cancer Maternal Grandfather Leukemia Maternal Grandmother Lung cancer Paternal Grandfather Dementia Paternal Grandmother No Known Problems Daughter SOCIAL HISTORY: Social History Tobacco Use Smoking status: Every Day Current packs/day: 0.25 Types: Cigarettes Tobacco comments: Smokes 60 mins after waking up. 5 or less cigs a day. Vaping Use Vaping status: Every Day Substances: Nicotine, Flavoring Substance Use Topics Alcohol use: Not Currently Comment: caffeine intake: 1 cup coffee in the morning Drug use: Yes Types: Marijuana Comment: PAST COCAINE: route: intranasal; treatment program: Tues and Thurs; Have not injected drugs; There is a minor (18 years or younger) at risk at home (1 child); MARIJUANA: 3x/week - when her daughter is not there. Pt is very interested in trying oils Depression: At risk (01/27/2024) PHQ-2 PHQ-2 Score: 6 WOMEN'S HEALTH: Sexually active: Denies Contraception: Tubes removed Patient Care Team: Tiana Redman MD as PCP - General (Family Medicine) Yousif Jain CNM (Obstetrics and Gynecology) Monroe Funez NP as Nurse Practitioner (Behavioral Health) PSYCHIATRIC REVIEW OF SYMPTOMS AND MENTAL STATUS EXAM ROS: Patient denies fatigue, malaise, night sweats, weight loss, weight gain, cough, SOB, palpitations, chest pain, insomnia, dysphagia, abdominal pain, N/V/D, pruritus, rash, headache, dizziness, seizures, tremors, headache. Appearance Appearance: Casual dress, normal grooming and hygiene Attitude Attitude: Cooperative, conversant, engaged, and with good eye contact. Behavior Cooperative, conversant, engaged, and with good eye contact. Speech Normal, clear, regular rate, rhythm and volume Affect full affect appropriate with mood Mood euthymic Thought Process Organized and Clear Thought Content: Denies suicidal and homicidal ideation. Perception: Denies auditory, and tactile hallucinations. 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 Still having some random VH. No safety concerns noted by patient or myself today. She desires to continue medications as prescribed. Assessment/Plan Diagnoses and all orders for this visit: Bipolar 2 disorder (CMS/HCC) PTSD (post-traumatic stress disorder) (CMS/HCC) JUVENAL (generalized anxiety disorder) (CMS/HCC) History of substance use Current smoker Treatment Plan/Recommendations: 1) Continue Zoloft 50 mg daily for symptoms related to depression, anxiety and PTSD. 2) Continue Cogentin 0.5 mg daily for hx of akathisia. 3) Continue Hydroxyzine 50 mg q6h as needed for anxiety. Okay to take 100 mg at bedtime for sleep. 4) Continue Topamax 50 mg BID for mood stabilizer and relapse prevention. Patient aware of off-label use and desires to continue medication. 5) Continue Risperdal to 2 mg BID for bipolar disorder. 6) Increase Wellbutrin to 150 mg BID for smoking cessation. 7) Continue counseling for additional mental health support and treatment. 8) RTC on 03/21/23 via telehealth. Discussed any medication changes and follow-up plan with patient. Encouraged patient to call office sooner if symptoms worsen or if any questions/concerns arise. Patient was seen Televisit - Audio and Visual, Total time spent with patient was 20 minutes, which includes reviewing chart documents, previous notes/records, counseling and discussion with patient and/or coordination of care as described above. documented in this encounterKansas City VA Medical [id number] History of Present illness Narrative* Monroe Funez NP - 02/10/2024 11:00 AM EST Images from the original note were not included. Tiana Kumar is a 38 y.o. female presents for psychiatric medication follow-up. Location of patient: Home; located in [place] Location of provider: Office; located in [place], [place] Patient seen via: [employer]; audio and video utilized Reason for televisit: Transportation issues Total time spent with patient: 18 minutes Did patient gave verbal consent for today's visit? Yes HPI: Patient was seen for initial intake on 01/07/24. At patient's last visit on 01/26/14, no medicationchanges were made due to her improvement in symptoms. She states she has not got labs done that were ordered on 01/26 but reports she will plan to get them done before next appointment. She states that she is sleeping more. Reports that mood is the same. Informed patient that I continue to talk to collaborating physician (Dr. Evans) on almost a weekly basis about her care and plans for moving forward with treatment plan based on her symptoms and response. She is inquiring about medication that can be used for smoking cessation. She states she has tried nicotine gum in the past. She has also been on the nicotine patch and reports this caused her to have migraines. Patient has unchanged since last appointment. Mood is reported as still gonzales. Sleep is reported as tired. Reports she has been sleeping a lot. She is unsure what is causing this, whether it is the weather change. Appetite is reported as good. Counseling: continues to see Dede at [facility] for individual counseling; EMDR treatment still on hold. She is also doing drug and alcohol counseling at [facility]. Patient reports they have been compliant with medication regimen. Patient denies any side effects or somatic complaints. Patient denies abuse of substances. Medical problems since last visit: None Psychosocial stressors include: She reports daughter was in ER recently and has been late on her meds. She states she didn't miss any doses but has had to take them a few hours after she normally would. SUBJECTIVE: PAST MEDICAL HISTORY: Past Medical History: Diagnosis Date Akathisia Anxiety Bipolar disorder ([facility]) Chlamydia Chronic headaches Chronic UTI Depression ([facility]) Drug abuse ([facility]) cocaine abuse High cholesterol ([facility]) Personal history of medical treatment 02/2017 Pt never been hospitallzied, observed in ER for suicidal ideation. PTSD (post-traumatic stress disorder) ([facility]) ALLERGIES: Allergies Allergen Reactions Amoxicillin Nausea Only Buspirone GI intolerance Codeine GI intolerance, Nausea Only and Unknown Other Reaction(s): Vomiting , Nausea Hydrocodone-Acetaminophen GI intolerance Lamictal [Lamotrigine] Seizures Seroquel [Quetiapine] Other Paranoia, Kaleigh Trazodone Other Nightmares SURGICAL HISTORY: Past Surgical History: Procedure Laterality Date COLONOSCOPY OVARIAN CYST REMOVAL Left 06/22/2023 PAP SMEAR 07/25/2020 SALPINGECTOMY Bilateral 06/22/2023 robotic assisted FAMILY HISTORY: Family History Problem Relation Name Age of Onset Hypertension Mother Anxiety disorder Father Depression Father Hyperlipidemia Father Kidney cancer Maternal Grandfather Leukemia Maternal Grandmother Lung cancer Paternal Grandfather Dementia Paternal Grandmother No Known Problems Daughter SOCIAL HISTORY: Social History Tobacco Use Smoking status: Every Day Current packs/day: 0.25 Types: Cigarettes Tobacco comments: Smokes 60 mins after waking up. 5 or less cigs a day. Vaping Use Vaping status: Every Day Substances: Nicotine, Flavoring Substance Use Topics Alcohol use: Not Currently Comment: caffeine intake: 1 cup coffee in the morning Drug use: Yes Types: Marijuana Comment: PAST COCAINE: route: intranasal; treatment program: Tu and Th; Have not injected drugs; There is a minor (18 years or younger) at risk at home (1 child); MARIJUANA: 3x/week - when her daughter is not there. Pt is very interested in trying oils Depression: At risk (01/27/2024) PHQ-2 PHQ-2 Score: 6 WOMEN'S HEALTH: Sexually active: Denies Contraception: Tubes removed Patient Care Team: Tiana Redman MD as PCP - General (Family Medicine) Yousif Jain CNM (Obstetrics and Gynecology) Monroe Funez NP as Nurse Practitioner (Behavioral Health) PSYCHIATRIC REVIEW OF SYMPTOMS AND MENTAL STATUS EXAM ROS: Patient denies fatigue, malaise, night sweats, weight loss, weight gain, cough, SOB, palpitations, chest pain, insomnia, dysphagia, abdominal pain, N/V/D, pruritus, rash, headache, dizziness, seizures, tremors, headache. Appearance Dress in [facility] Attitude Attitude: Cooperative, conversant, engaged, and with good eye contact. Behavior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 isolating. Wants discuss Risperdal.ReasonCommentsMed ManagementFollow-up ReasonCommentsFollow-upBipolarPTSD (Post-Traumatic Stress Disorder)AnxietyReason CommentsFollow-upMed ManagementBipolarPTSD (Post-Traumatic Stress Disorder) AnxietyReasonCommentsFollow-upMed ManagementPTSD (Post-Traumatic Stress Disorder)AnxietyBipolar FOR RECORDS PERTAINING TO PATIENTS WHO ARE [...] BE BASED ON THE PRIMARY CLINICAL RECORDS. [facility]. provides no warranty or guarantee of the accuracy or completeness of information in this document.
--- OUTSIDE RECORDS SUMMARY | 2025-01-13 18:10 | XMS_ITS | Clinical Summary ---
Author Organization [facility] Address [address], [address] [place] [address] Care Team Providers Care Trucker Hand Name Role Phone Unavailable Primary Care Provider Unavailabl e Social History Tobacco UseTypesPacks/DayYears UsedDateSmoking Tobacco: Never Assessed CommentsUnknownSex and Gender InformationValueDate RecordedSex Assigned at Not on fileLegal HdtAqsjjw94/10/2013 5:03 PM ESTGender IdentityNot on fileSexual OrientationNot on file Plan of Treatment Not on file Insurance
--- OUTSIDE RECORDS SUMMARY | 2025-01-13 18:11 | XMS_ITS | Encounter Summary ---
Author Organization [facility] Address [address] [place] [address] Care Team Providers Care Mergers And Acquisitions Consultant Name Role Phone Smiley Jain CN Unavailable [phone] Dickson Redman MD Primary Care Provider [phone] Corrina Brown PMHNP- Unavailable [phone] Encounter Details DateTypeDepartmentCare Team (Latest Contact Info)Fylpuuldvqi59/19/2024Clinisync Result Encounter [facility] External Department Unsolicited Edward Hope, DO [address] [place] [place], [place] [address] Social History Tobacco UseTypesPacks/DayYears UsedDateSmoking Tobacco: Some DaysCigarettes Comments:Smokes 60 mins afte r waking up. 5 or less cigs a day. Alcohol UseStandard Drinks/WeekCommentsNever0 (1 standard drink = 0.6 oz pure alcohol)caffeine intake: 2-3 cups per day, >4 cups per day mountain dew & coffee PHQ-2AnswerDate RecordedPatient Health Questionnaire-2 Lhasw69503/28/2023Education AnswerDate RecordedWhat is the highest level of school you have completed or the highest degree you have received?High school iqzxenkg13/03/2023Comments UnknownSex and Gender InformationValueDate RecordedSex Assigned at BirthFemale 12/28/2023 1:08 PM EDTLegal AvoKaoijd39/15/2023 6:39 PM EDTGender IdentityFemale 05/28/2022 6:39 PM EDTSexual ZpzmhclwxoyVmhgcmtq50/14/2024 1:08 PM EDTOccupation IndustryJob Start DateJob End DateunemployedNot on fileNot on fileNot on file documented as of this encounter Functional Status * Over the past 2 weeks, how often have you been bothered by any of the following problems?QuestionAnswerDate of AssessmentAuthorLittle interest or pleasure in doing thingsNearly every day01/27/2024 9:09 AM Ninoska Wilson LPNFeeling down, depressed, or hopelessNearly every day01/27/2024 9:09 AM Ninoska Rosado LPNPatient Health Questionnaire-2 Zfhvo53303/28/2023 9:09 AM Ninoska Rosado LPN * QuestionAnswerDate of AssessmentAuthorTrouble falling or staying asleep, or sleeping too muchNot at all01/27/2024 9:09 AM Ninoska Wilson LPNFeeling tired or having little energyMore than half the days01/27/2024 9:09 AM Ninoska Rosado LPNPoor appetite or overeatingNot at all01/27/2024 9:09 AM Ninoska Rosado LPNFeeling bad about yourself - or that you are a failure or have let yourself or your family downSeveral 01/27/2024 9:09 AM Ninoska Rosado LPNTrouble concentrating on things, such as reading the newspaper or watching televisionNearly every day01/27/2024 9:09 AM Ninoska Wilson LPNMoving or speaking so slowly that other people could have noticed? Or the opposite - being so fidgety or restless that you have been moving around a lot more than usual.Nearly every day01/27/2024 9:09 AM Ninoska Wilson LPN Thoughts that you would be better off or hurting yourself in some wayNot at all01/27/2024 9:09 AM Ninoska Wilson LPNPatient Health Questionnaire-9 Ywowm0398/13/2024 9:09 AM ESTCollins, Ninoska, LOTUS NOTES ADMINISTRATOR * How difficult have these problems made it for you to do your work, take care of things at home, or get along with other people?AnswerDate of Assessment AuthorSomewhat ornhktgpi60/13/2024 9:09 AM Ninoska Wilson LPN * Over the last 2 weeks, how often have you been bothered by any of the following problems?QuestionAnswerDate of AssessmentAuthorFeeling nervous, anxious, or on vxpw127 9:11 AM Ninoska Wilson LPNNot being able to stop or control /13/2024 9:11 AM Ninoska Wilson LPNWorrying too much about different selgpc131 9:11 AM PALLAVICoNinoska diego LPNTrouble gbmcebdf060/13/2024 9:11 AM PALLAVICoBhavya diegoi LPNBeing so restless that it is hard to sit elnao921 9:11 AM Ninoska Wilson LPNBecoming easily annoyed or eoiwkltyf569/13/2024 9:11 AM PALLAVICoBhavya diegoi LPNFeeling afraid as if something awful might 9:11 AM Ninoska Wilson LPNGAD-7 Total Uoqhh1995 9:11 AM Ninoska Wilson LOTUS NOTES ADMINISTRATOR documented as of this encounter Plan of Treatment DateTypeDepartmentCare Team (Latest Contact Info)Vcxyrckujlx46/06/2025 1:00 PM ESTOffice Visit NOEMI JOSEN [address] [place] [address] Smiley Jain, BASILIAM [address] [place] [address] 01/19/2025 2:00 PM ESTAncillary Procedure [facility] [address] [facility] [address] [place] [address] 02/02/2025 2:00 PM ESTOffice Visit NOEM[facility] 112 [facility] [address] [place] [address] Adrianne Aguirre, RAILROAD REPAIRER-MOLD MAKER HELPER [address] [facility] 160 [place] [address] 03/29/2025 12:00 PM ESTOffice Visit NOEMI [facility] [address] [facility] [address] [place] [address] Diana Guzman, RAILROAD REPAIRER-DRYING UNIT FELTING MACHINE OPERATOR [address] [place], [place] [address] documented as of this encounter Procedures Procedure NamePriorityDate/TimeAssociated DiagnosisCommentsECG 12-LEAD05/04/2023 2:50 PM EST documented in this encounter Results * ECG 12-LEAD (05/04/2023 2:50 PM EST)Anatomical RegionLateralityModalityOther Specimen (Source)Anatomical Location / LateralityCollection Method / Volume Collection TimeReceived Time05/04/2023 2:50 PM EST Narrative 05/10/2023 7:[address] [facility] ?[address] ? [place] [address] ? Electrocardiograph Report ? Signed ? Patient: DICKSON KUMAR ?MR#: [id number] ?? : 1985 ?Acct:[id number] ?? Age/Sex: 37 / F ?ADM Date: 05/04/23 ?? Loc: PST ? Attending Dr: Edward Hope D.O. ? Ordering Physician: Edward Hope D.O. ?? Date of Service: 05/04/23 ?? Procedure(s): ECG 12 lead ?? Accession Number(s): [id number] ? cc: ?[facility] ? Test Date: ?2023-05-04 ?? Pat Name: ? Dickson Kumar ? Department: ? Room: ? - ?? Gender: ? Female ? Valet Parker: ? : ?1985 ? Requested By: EDWARD HERMINIA ?? Order Number: [id number] ?Reading MD: ?? PATRICK ??BALL ? Measurements ?? Intervals ?[place] ? Rate: ? 61 ? P: ?48 ?? TN: ? 123 ?QRS: ?68 ?? QRSD: ? 89 ? T: ?61 ?? QT: ? 402 ? QTc: ?408 ? Interpretive Statements ?? SINUS RHYTHM ?? No previous ECG available for comparison ?? Electronically Signed On 05-10-2023 7:25:57 EST by PATRICK ??BALL ? Dictated By: ?Ball,Patrick D.O. ? Signed By: ?02/25/24 0726 ? DD/ 1450 ? TD/TT: ? General Service Officer: Procedure Note Radiology, Radiologist, - 05/10/[address] [address] Electrocardiograph Report Signed Patient: DICKSON KUMAR JMR#: [id number] : 1985Acct:[id number] Age/Sex: 37 / FADM Date: 05/04/23 Loc: PST Attending Dr: Edward Hope D.O. Ordering Physician: Edward Hope D.O. Date of Service: 05/04/23 Procedure(s): ECG 12 lead Accession Number(s): [id number] cc: [facility] Test Date: 2023-05-04 Pat Name: Dickson Kumar Department: Room: - Gender: Female Valet Parker: : 1985 Requested By: EDWARD HOPE Order Number: [id number] Reading MD: PATRICK KONG Measurements Intervals [place] Rate: 61 P: 48 TN: 123 QRS: 68 QRSD: 89 T: 61 QT: 402 QTc: 408 Interpretive Statements SINUS RHYTHM No previous ECG available for comparison Electronically Signed On 05-10-2023 7:25:57 EST by PATRICK KONG Dictated By: Patrick Kogn D.O. Signed By:05/10/23 0726 DD/ 1450 TD/TT: General Service Officer: Authorizing ProviderResult TypeResult StatusCorey Herminia DOCLINISYNC IMAGINGFinal Result documented in this encounter Visit Diagnoses Not on filedocumented in this encounter Care Teams Team MemberRelationshipSpecialtyStart DateEnd Date Dickson Redman MD [address] [place] [address] PCP - GeneralFamily Medicine10/14/22 Smiley Jian CNM [address] [place] [address] Obstetrics and Gynecology08/19/22 Corrina Brown PMHNP- [address] [address] Nurse PractitionerBehavioral Jphztj60/24/24documented as of this encounter
--- OUTSIDE RECORDS SUMMARY | 2025-01-13 18:11 | XMS_ITS | Encounter Summary ---
Author Organization [facility] Address [address] [facility] [place] [address] Care Team Providers Care Breadman Name Role Phone Smiley Jain CN Unavailable [phone] Tiana Redman MD Primary Care Provider [phone] Crorina Brown HNP-BC Unavailable Reason for Visit * ReasonOnset DateCommentsMed Okqinb0701/10/2025 Encounter Details DateTypeDepartmentCare Team (Latest Contact Info)Jdcasnprtvh41/28/2025Refill [facility] [address] [facility] [address] [place] [address] Corrina Brown [facility]- [address] [place] [address] Bipolar 2 disorder (HCC) Social History Tobacco UseTypesPacks/DayYears UsedDateSmoking Tobacco: Every DayCigarettes Comments:Smokes 60 mins afte r waking up. 5 or less cigs a day. Alcohol UseStandard Drinks/WeekCommentsNot Currently0 (1 standard drink = 0.6 oz pure alcohol)caffeine intake: 1 cup coffee in the morningPHQ-2AnswerDate RecordedPatient Health Questionnaire-2 Sclbf54203/28/2023EducationAnswerDate RecordedWhat is the highest level of school you have completed or the highest degree you have received?High school /03/2023CommentsNoSex and Gender InformationValueDate RecordedSex Assigned at WckksNgbqwc09/ 1:08 PM EDTLegal XxjVhrzvo98/15/2023 6:39 PM EDTGender GxepmustOvdqcu70/15/2023 6:39 PM EDTSexual XludepyqaimBvwxxepw79/14/2024 1:08 PM EDTOccupationIndustryJob Start DateJob End Datebabysitting, cleaningNot on fileNot on fileNot on file documented as of this encounter Plan of Treatment DateTypeDepartmentCare Team (Latest Contact Info)Hgqxlvyuasl85/06/2025 1:00 PM ESTOffice Visit [facility] [address] [place] [phone] Smiley Jain, CNM [address] [place], [place] [address] 01/19/2025 2:00 PM ESTAncillary Procedure [facility] [address] [facility] 130 [place] [address] 02/02/2025 2:00 PM ESTOffice Visit [facility] [place] [facility] [address] [facility] 160 [place] [address] Adrianne Aguirre, SETUP OPERATOR-CAMP ADVISOR [address] [facility] 160 [place] [address] 03/29/2025 12:00 PM ESTOffice Visit [facility] [address] [place] [address] Diana Guzman, SETUP OPERATOR-METAL OFF BEARER [address] [facility] [place], [place] [address] documented as of this encounter Visit Diagnoses Diagnosis Bipolar 2 disorder (HCC) Other bipolar disorders documented in this encounter Additional Health Concerns AssessmentNoted TimePHQ-9 Depression Total Score: 15103/28/2023 9:09 AM EST documented as of this encounter Care Teams Team MemberRelationshipSpecialtyStart DateEnd Date Tiana Redman MD [address] [place] [address] PCP - GeneralFamily Medicine10/14/22 Smiley Jain CNM [address] [place] [address] Obstetrics and Gynecology08/19/22 Corrina Brown PMHNP- [address] [address] Nurse PractitionerBehavioral Jfuzhe68/24/24documented as of this encounter
--- OUTSIDE RECORDS SUMMARY | 2025-01-13 18:11 | XMS_ITS | Encounter Summary ---
Author Organization [facility] Address [address] [place] [address] Care Team Providers Care Respiratory Care Technician Name Role Phone Smiley Jain CN Unavailable [phone] Tiana Redman MD Primary Care Provider + [phone] Corrina Brown PMHNP- Unavailable [phone] Encounter Details DateTypeDepartmentCare Team (Latest Contact Info)Bwaqzkeksmr40/31/2025Travel Social History Tobacco UseTypesPacks/DayYears UsedDateSmoking Tobacco: Every DayCigarettes Comments:Smokes 60 mins afte r waking up. 5 or less cigs a day. Alcohol UseStandard Drinks/WeekCommentsNot Currently0 (1 standard drink = 0.6 oz pure alcohol)caffeine intake: 1 cup coffee in the morningPHQ-2AnswerDate RecordedPatient Health Questionnaire-2 Geitt93503/28/2023EducationAnswerDate RecordedWhat is the highest level of school you have completed or the highest degree you have received?High school dkjjrndi40/03/2023CommentsNoSex and Gender InformationValueDate RecordedSex Assigned at HsfnpNzmcex68/14/2024 1:08 PM EDTLegal KazWcmmqo20/15/2023 6:39 PM EDTGender MgnsrpjxHjvabj50/15/2023 6:39 PM EDTSexual SzrrvuxolvcMpprfdej51/14/2024 1:08 PM EDTOccupationIndustryJob Start DateJob End Datebabysitting, cleaningNot on fileNot on fileNot on file documented as of this encounter Plan of Treatment DateTypeDepartmentCare Team (Latest Contact Info)Tspxzcdimmb85/06/2025 1:00 PM ESTOffice Visit [facility] [address] [place] [address] Smiley Jain CNM [address] [place] [address] 01/19/2025 2:00 PM ESTAncillary Procedure [facility] [address] [address] [place] [address] 02/02/2025 2:00 PM ESTOffice Visit [facility] [place] [facility] [address] [place] [address] Adrianne Aguirre, CASTING WHEEL OPERATOR-FACILITATOR [address] [place] [address] 03/29/2025 12:00 PM ESTOffice Visit [facility] [address] [place] [address] Diana Guzman, CASTING WHEEL OPERATOR-VP STRATEGY [address] [facility] [place] [address] documented as of this encounter Visit Diagnoses Not on filedocumented in this encounter Additional Health Concerns AssessmentNoted TimePHQ-9 Depression Total Score: 15103/28/2023 9:09 AM EST documented as of this encounter Care Teams Team MemberRelationshipSpecialtyStart DateEnd Tiana Redman MD [address] [place] [address] PCP - GeneralFamily Medicine10/14/22 Smiley Jain CNM 1479 [facility], [place] [address] Obstetrics and Gynecology08/19/22 Corrina Brown PMHNP-BC [address] [facility] 160 [place] [address] Nurse PractitionerBehavioral Arztts96/24/24documented as of this encounter
--- OUTSIDE RECORDS SUMMARY | 2025-01-13 18:11 | XMS_ITS | Encounter Summary ---
Author Organization [facility] Address [address] [place] [address] Care Team Providers Care Site Technician Name Role Phone Smiley Jain CN Unavailable [phone] Tiana Redman MD Primary Care Provider + [phone] Corrina Brown PMHNP- Unavailable + [phone] Encounter Details DateTypeDepartmentCare Team (Latest Contact Info)Kdrxjwittep89/28/2025Travel Social History Tobacco UseTypesPacks/DayYears UsedDateSmoking Tobacco: Every DayCigarettes Comments:Smokes 60 mins afte r waking up. 5 or less cigs a day. Alcohol UseStandard Drinks/WeekCommentsNot Currently0 (1 standard drink = 0.6 oz pure alcohol)caffeine intake: 1 cup coffee in the morningPHQ-2AnswerDate RecordedPatient Health Questionnaire-2 Hoatg08703/28/2023EducationAnswerDate RecordedWhat is the highest level of school you have completed or the highest degree you have received?High school cgltpfla87/03/2023CommentsNoSex and Gender InformationValueDate RecordedSex Assigned at VynueWlsuaf82/14/2024 1:08 PM EDTLegal PxnLvpyyx57/15/2023 6:39 PM EDTGender IgvrktweLcogmc24/15/2023 6:39 PM EDTSexual VjbeyevkavgSgkargzr37/14/2024 1:08 PM EDTOccupationIndustryJob Start DateJob End Datebabysitting, cleaningNot on fileNot on fileNot on file documented as of this encounter Plan of Treatment DateTypeDepartmentCare Team (Latest Contact Info)Djgcnnolbsk47/06/2025 1:00 PM ESTOffice Visit [facility] [place] [facility] [address] [place] [phone] Smiley Jain CNM 14[address] [place] [address] 01/19/2025 2:00 PM ESTAncillary Procedure [facility] [place] [facility] [address] [place] [address] 02/02/2025 2:00 PM ESTOffice Visit [facility] [place] [facility] [address] [place] [address] Adrianne Aguirre, HAND SCRAPER-MILK SAMPLER [address] [place] [address] 03/29/2025 12:00 PM ESTOffice Visit [facility] [address] [place] [address] Diana Guzman, HAND SCRAPER-TRAINING COORDINATOR [address] [place] [address] documented as of this encounter Visit Diagnoses Not on filedocumented in this encounter Additional Health Concerns AssessmentNoted TimePHQ-9 Depression Total Score: 15103/28/2023 9:09 AM EST documented as of this encounter Care Teams Team MemberRelationshipSpecialtyStart DateEnd Tiana Redman MD [address] [place] [address] PCP - GeneralFamily Medicine10/14/22 Smiley Jain CNM 1479 [facility], [place] [address] Obstetrics and Gynecology08/19/22 Corrina Brown PMHNP-BC [address] [facility] 160 [place] [address] Nurse PractitionerBehavioral Ugdtqm05/24/24documented as of this encounter
--- OUTSIDE RECORDS SUMMARY | 2025-01-13 18:11 | XMS_ITS | Encounter Summary ---
Author Organization [facility] Address [address] [facility] [place] [address] Care Team Providers Care Staff Cytotechnologist Name Role Phone Smiley Jain CN Unavailable [phone] Taina Redman MD Primary Care Provider Corrina Brown PMHNP-BC Unavailable [phone] Reason for Visit * ReasonCommentsMed Refill Encounter Details DateTypeDepartmentCare Team (Latest Contact Info)Erdwvtucoby38/20/2025Refill [facility] [address] [facility] [address] [place] [address] Corrina Brown [facility] [address] [place] [address] Bipolar 2 disorder (HCC) Social History Tobacco UseTypesPacks/DayYears UsedDateSmoking Tobacco: Every DayCigarettes Comments:Smokes 60 mins afte r waking up. 5 or less cigs a day. Alcohol UseStandard Drinks/WeekCommentsNot Currently0 (1 standard drink = 0.6 oz pure alcohol)caffeine intake: 1 cup coffee in the morningPHQ-2AnswerDate RecordedPatient Health Questionnaire-2 Lfgqc58003/28/2023EducationAnswerDate RecordedWhat is the highest level of school you have completed or the highest degree you have received?High school lshxsags28/03/2023CommentsNoSex and Gender InformationValueDate RecordedSex Assigned at LcvjgWyakwn17/14/2024 1:08 PM EDTLegal PoyFchxtw62/15/2023 6:39 PM EDTGender YwilyobwIwtrbd58/15/2023 6:39 PM EDTSexual PslkgzhzlsaNwarmgys77/14/2024 1:08 PM EDTOccupationIndustryJob Start DateJob End Datebabysitting, cleaningNot on fileNot on fileNot on file documented as of this encounter Plan of Treatment DateTypeDepartmentCare Team (Latest Contact Info)Xbdaelkmexb74/06/2025 1:00 PM ESTOffice Visit [facility] [address] [place] [phone] Smiley Jain, CNM [address] [place], [place] [address] 01/19/2025 2:00 PM ESTAncillary Procedure [facility] [place] [facility] 14[address] [facility] 130 [place] [address] 02/02/2025 2:00 PM ESTOffice Visit [facility] [place] [facility] [address] [facility] 160 [place] [address] Adrianne Aguirre, INCOME TAX RETURN PREPARER-[facility] [address] [place] [address] 03/29/2025 12:00 PM ESTOffice Visit [facility] [address] [place] [address] Diana Guzman, INCOME TAX RETURN PREPARER-SENIOR DATA WAREHOUSE ARCHITECT [address] [facility] [place] [address] documented as of this encounter Visit Diagnoses Diagnosis Bipolar 2 disorder (HCC) Other bipolar disorders documented in this encounter Additional Health Concerns AssessmentNoted TimePHQ-9 Depression Total Score: 15103/28/2023 9:09 AM EST documented as of this encounter Care Teams Team MemberRelationshipSpecialtyStart DateEnd Date Tiana Redman MD [address] [place] [address] PCP - GeneralFamily Medicine10/14/22 Smiley Jain CNM [address] [place] [address] Obstetrics and Gynecology08/19/22 Corrina Brown PMHNP- [address] [address] Nurse PractitionerBehavioral Ikrued39/24/24documented as of this encounter
--- OUTSIDE RECORDS SUMMARY | 2025-01-13 18:11 | XMS_ITS | Encounter Summary ---
Author Organization [facility] Address [address] [place] [address] Care Team Providers Care Coremaker Machine Name Role Phone Smiley Jain CN Unavailable [phone] Dickson Redman MD Primary Care Provider Corrina Brown PMHNP- Unavailable Encounter Details DateTypeDepartmentCare Team (Latest Contact Info)Gtlgqgjpptd55/19/2024Clinisync Result Encounter [facility] Unsolicited Edward Hope, DO [address] [place] [place], [place] [address] Social History Tobacco UseTypesPacks/DayYears UsedDateSmoking Tobacco: Some DaysCigarettes Comments:Smokes 60 mins afte r waking up. 5 or less cigs a day. Alcohol UseStandard Drinks/WeekCommentsNever0 (1 standard drink = 0.6 oz pure alcohol)caffeine intake: 2-3 cups per day, >4 cups per day mountain dew & coffee PHQ-2AnswerDate RecordedPatient Health Questionnaire-2 Ququc97703/28/2023Education AnswerDate RecordedWhat is the highest level of school you have completed or the highest degree you have received?High school xzgvetif42/03/2023Comments UnknownSex and Gender InformationValueDate RecordedSex Assigned at BirthFemale 12/28/2023 1:08 PM EDTLegal UiaMottlx72/15/2023 6:39 PM EDTGender IdentityFemale 05/28/2022 6:39 PM EDTSexual NhcybhrolhrDmvchclj23/14/2024 1:08 PM EDTOccupation IndustryJob Start DateJob End [...] 9:09 AM Ninoska Rosado LPNPatient Health Questionnaire-2 Anrkq76303/28/2023 9:09 AM Ninoska Rosado LPN * QuestionAnswerDate [...] 9:09 AM Ninoska Wilson LPNPatient Health Questionnaire-9 Delga8899/13/2024 9:09 AM ESTCollins, Ninoska, XEROX MACHINE ASSEMBLER * How difficult have these problems made it for you to do your work, take care of things at home, or get along with other people?AnswerDate of Assessment AuthorSomewhat /13/2024 9:09 AM Ninoska Wilson LPN * Over the last 2 weeks, how often have you been bothered by any of the following problems?QuestionAnswerDate of AssessmentAuthorFeeling nervous, anxious, or on kssx966 9:11 AM Ninoska Wilson LPNNot being able to stop or control uygaurni359/13/2024 9:11 AM Ninoska Wilson LPNWorrying too much about different jgrbap713 9:11 AM PALLAVICoNinoska diego LPNTrouble gknkeduy196/13/2024 9:11 AM PALLAVICoBhavya diegoi LPNBeing so restless that it is hard to sit vjovi343 9:11 AM Ninoska Wilson LPNBecoming easily annoyed or svviyfgpn432/13/2024 9:11 AM PALLAVICoBhavya diegoi LPNFeeling afraid as if something awful might aqheks721 9:11 AM Ninoska Wilson LPNGAD-7 Total Dxcyz0887 9:11 AM Ninoska Wilson XEROX MACHINE ASSEMBLER documented as of this encounter Plan of Treatment DateTypeDepartmentCare Team (Latest Contact Info)Yhsnrbwqgut90/06/2025 1:00 PM ESTOffice Visit [facility] 14[address] [place] [address] Smiley Jain, BASILIAM [address] [place] [address] 01/19/2025 2:00 PM ESTAncillary Procedure [facility] 14[address] [facility] 130 [place] [address] 02/02/2025 2:00 PM ESTOffice Visit [facility] [address] [facility] [address] [place] [address] Adrianne Aguirre, AUTOMATION CLERK-DIRECTOR EXPORT [address] [facility] 160 [place] [address] 03/29/2025 12:00 PM ESTOffice Visit [facility] [address] [facility] [address] [place] [address] Diana Guzman, AUTOMATION CLERK-GARLAND MACHINE OPERATOR [address] [place], [place] [address] documented as of this encounter Procedures Procedure NamePriorityDate/TimeAssociated DiagnosisCommentsXR CHEST 2V05/04/2023 3:26 PM EST documented in this encounter Results * XR CHEST 2V (05/04/2023 3:26 PM EST)Anatomical RegionLateralityModalityOther Specimen (Source)Anatomical Location / LateralityCollection Method / Volume Collection TimeReceived Time05/04/2023 3:26 PM EST Narrative 05/04/2023 3:28 PM EST [facility] ?[address] ? [place] [address] ?XRay Report ? Signed ? Patient: Dickson Kumar ?MR#: [id number] ?? : 1985 ?Acct:[id number] ?? Age/Sex: 37 / F ?ADM Date: 05/04/23 ?? Loc: PST ? Attending Dr: Edward Hope D.O. ? Ordering Physician: Edward Hope D.O. ?? Date of Service: 05/04/23 ?? Procedure(s): XR chest 2V ?? Accession Number(s): [id number] ? cc: Edward Hope D.O.; DICKSON REDMAN ? [facility] ? [address] ? [place] [address] ? Patient Name: ?? DICKSON KUMAR ? MRN: [id number] ? date: 1985 ?Sex: F ?? Assigned Patient Location: PST ?? Current Patient Location: PST ?? Accession/Order Number: [id number] ?? Exam Date: 05/04/2023 ??14:58 ?Report Date: 05/04/2023 ??15:26 ? At the request of: ?? EDWARD ??DESEAN ? Procedure: ??XR chest 2V ? EXAM: XR chest 2V ? HISTORY: Preop exam ? COMPARISON: None. ? TECHNIQUE: Upright PA and lateral chest x-ray ? FINDINGS: A very small amount of linear atelectasis or scarring is seen at the ? left costophrenic angle. No acute infiltrate, effusion or pneumothorax is ?? identified. The heart is not enlarged and the vasculature is not distended. ?? The ?? osseous structures are grossly intact. ? XR/XR chest 2V ?? IMPRESSION: ? There is a very small amount of linear atelectasis or scarring at the left ?? costophrenic angle. There is no evidence of a focal infiltrate or overt ?? cardiac ?? decompensation. Direct comparison with a previous study may be helpful in ?? confirming the chronicity of these findings. ? Electronically authenticated by: JANES ??SANTOS ?? Date: 05/04/2023 ??15:26 ? Dictated By: ?Janes rGaham M.D. ? Signed By: ?05/04/23 1528 ? DD/ 1526 ? TD/TT: ? Motor Scooter Repairer: Procedure Note Radiology, Radiologist, MD - 05/04/2023 [place] [address] XRay Report Signed Patient: Dickson Kumar JMR#: [id number] : 1985Acct:[id number] Age/Sex: 37 / FADM Date: 05/04/23 Loc: [facility] Attending Dr: Edward Hope D.O. Ordering Physician: Edward Hope D.O. Date of Service: 05/04/23 Procedure(s): XR chest 2V Accession Number(s): [id number] cc: Edward Hope D.O.; DICKSON REDMAN [address] [address] Patient Name: DICKSON KUMAR MRN: [id number] date: 1985 Sex: F Assigned Patient [facility]: [facility] Current Patient Location: PST Accession/Order Number: [id number] Exam Date: 05/04/2023 14:58 Report Date: 05/04/2023 15:26 At the request of: EDWARD HOPE Procedure: XR chest 2V EXAM: XR chest 2V HISTORY: Preop exam COMPARISON: None. TECHNIQUE: Upright PA and lateral chest x-ray FINDINGS: A very small amount of linear atelectasis or scarring is seen atthe left costophrenic angle. No acute infiltrate, effusion or pneumothorax is identified. The heart is not enlarged and the vasculature is notdistended. The osseous structures are grossly intact. XR/XR [...] 15:26 Dictated By: Janes Graham M.D. Signed By:05/04/23 1528 DD/ 1526 TD/TT: Motor Scooter Repairer: Authorizing ProviderResult TypeResult StatusCoremonty Hope DOCLINISYNC IMAGINGFinal Result documented in this encounter Visit Diagnoses Not on filedocumented in this encounter Care Teams Team MemberRelationshipSpecialtyStart DateEnd Date Dickson Redman MD [address] [place] [address] PCP - GeneralFamily Medicine10/14/22 Smiley Jain CNM [address] [place] [address] Obstetrics and Gynecology08/19/22 Corrina Brown PMHNP-BC [address] [facility] 160 [place] [address] Nurse PractitionerBehavioral Qwfwct38/24/24documented as of this encounter
--- OUTSIDE RECORDS SUMMARY | 2025-01-13 18:11 | XMS_ITS | Patient Health Record ---
Author Organization [facility] in [place] Address [address] [place] [address] Care Team Providers Care Batch Weigher Name Role Phone Tiana Redman Primary Care Provider Jesse Rogers [phone] Allergies Allergen (clinical drug ingredient) Drug/Non Drug Allergy documented on EMR Reaction Allergy Type Onset Date Status Codeine PhosphateNauseaDrug AllergyActiverisperidonerisperiDONEAkesthesiaDrug AllergyActive Results Component Value Reference Range Notes CMP (COMPLETE METABOLIC PANE L) Reviewed date:05/05/2024 11:25:35 AM Interpretation: Performing Lab: Notes/Report: GLUCOSE (FBS) 93 BUN (UREA NITROGEN)32DGMETBAEZL7.14GFR-NON -EIEYORZP32CFHFHR (NA)142 POTASSIUM (K+)4.6CHLORIDE (CL-)107CARBON MUBNORM90YVPLULZ0.4ALBUMIN, BLOOD4.2 PROTEIN, TOTAL (TP)6.9ALKALINE PHOSPHATASE (ALP)81ALT (SGPT)21AST (SGOT)14 BILIRUBIN, TOTAL0.3CHOLESTEROL, TOTAL Reviewed date:05/05/2024 11:24:07 AM Interpretation: Performing Lab: Notes/Report: CHOLESTEROL (CHOL)183CBC WITH DIFF Reviewed date:05/05/2024 11:23:32 AM Interpretation: Performing Lab: Notes/Report: WBC7.9RBC4.88SZG59.1HPJ72IRB06.0MCH29.5OAQS69.7RDW13.0SGD980BBIANLR D, 25 LEVEL (TOTAL) Reviewed date:05/05/2024 11:22:21 AM Interpretation: Performing Lab: Notes/Report: VIT D-25, TOT56.5XR Chest PA and Lateral (Routine CXR) * (Not yet reviewed by provider) Interpretation:No acute process Performing Lab: Notes/Report: No acute processLIVER PANEL (Not yet reviewed by provider) Interpretation:ALT 72, AST 22 Performing Lab: Notes/Report:TOTAL PROTEIN6.76.0-8.0 g/dLALBUMIN4.23.2-5.3 g/dLBILIRUBIN,TOTAL 0.30.3-1.2 mg/dLALKALINE QJTULJPHGEO6862-100 U/LAST22<=41 U/LALT72<=31 U/L BILIRUBIN,DIRECT0.1<=0.4 mg/dL PERFORMED AT [facility] [address] 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) Referral Organization [facility] Referring Provider First Name Tiana Referring Provider Last Name Feroz Referring Provider [facility] maxine Referred Provider Edison Smith Referred Provider Specialty Neurology Referral Priority Routine Medications Medication SIG (Take, Route, Frequency, Duration) Notes Start Date End Date Status M- Plus 27-1 MG TAKE 1 TABLET BY MOUTH EVER Y DAY FOR 30 DAYS; Duration: 90 ActiverisperiDONE 2 MG 1 tablet Orally BID 3mg in am, 2mg at night twice a dayActivePolyethylene Glycol 3350 17 GM/SCOOP1 scoop mixed with 8 ounces of fluid Orally Once a day; Duration: 30 days1 large dydfso705Active Lidocaine 5 %1 patch remove after 12 hours Externally Once a dayActiveVitamin D (Ergocalciferol) 1.25 MG (42091 UT)TAKE 1 CAPSULE BY MOUTH WEEKLY; Duration: 90 daysActiveTopamax 25 MG1 tablet Orally BID; Duration: 30 daysRestarting 11/17/24 ActivebuPROPion HCl ER (SR) 200 MG1 tablet in the morning Oral BID; Duration: 30 daysActiveAtorvastatin Calcium 10 MG1 tablet Orally Once a day; Duration: 90 daysActiveZoloft 100 MG1 tablet Orally Once a dayAMActiveFluticasone Propionate 50 MCG/ACT1 SPRAY INTO INTO EACH NOSTRIL TWICE A DAY; Duration: 90ActiveDocusate Sodium 100 MGTAKE 1 TO 2 SOFTGELS BY MOUTH EVERY DAY; Duration: 30Active hydrOXYzine Pamoate 50 MG 1 capsule Oral TID prn; Duration: 30 days 2 qhs, and daily prn ActiveIbuprofen 800 MGTAKE 1 TABLET BY MOUTH THREE TIMES A DAY WITH FOOD OR MILK NEEDED; Duration: 30Active Immunizations Vaccine Route Administration Date Status Comme nts Flu, Flublok (57616) 18yr+, single-dose (8967-8871) Unknown 03/17/2022 Administered SARS-COV-2 (COVID 19 Pfizer 30mcg/0.3mL)Ccfyopo65/17/5906PaxrkvtpvjzbAADG-BJQ-7 (COVID 19 Pfizer 30mcg/0.3mL)Pffuohz79/08/6896FqkaufrugvirNJPT-CGO-7 (COVID 19 Pfizer Booster 0.3mL)Wdhjhzw18/01/2021Administered Social History Tobacco Use: Social History Observation Description Date Details (start date - stop date) Current Smoker NA - NA Tobacco Use/Smoking Question Answer Notes Patient is a current smoker Alcohol Screen (Audit-C) Question Answer Notes Did you have a drink containing alcohol in the p ast year? No Llakbn3WezpaohxgpwznfUzzzdaop Problems Problem Type SNOMED Code ICD Code Onset Dates Problem Status W/U Status Risk Notes Problem Age-related osteoporosis (540104 002) Age-related osteoporosis without current pathological fracture (M81.0) ActiveconfirmedProblemVitamin D deficiency (95832754)Vitamin D deficiency, unspecified (E55.9)ActiveconfirmedProblemMixed hyperlipidemia (492651453)Mixed hyperlipidemia (E78.2)ActiveconfirmedProblemBipolar affective disorder, currently manic, severe, with psychosis (378244546)Bipolar disorder, current episode manic severe with psychotic features (F31.2)ActiveconfirmedProblem Bipolar I disorder, most recent episode mixed, in remission (07060180)Bipolar disorder, currently in remission, most recent episode unspecified (F31.70)Active confirmedProblemSocial phobia (87266164)Social phobia, unspecified (F40.10) ActiveconfirmedProblemPost-traumatic stress disorder (14186427)Post-traumatic stress disorder, unspecified (F43.10)ActiveconfirmedProblemRestless legs syndrome (40174967)Restless legs syndrome (G25.81)ActiveconfirmedProblemChronic pain (70441204)Other chronic pain (G89.29)ActiveconfirmedProblemOsteoporosis (60522459)Other osteoporosis without current pathological fracture (M81.8)Active confirmedProblemImpaired fasting glucose (070306026)Impaired fasting glucose (R73.01)ActiveconfirmedProblemAnxiety (51520815)Anxiety (F41.9)Activeconfirmed ProblemRestless legs (25137625)Restless leg (G25.81)ActiveconfirmedProblemSmoker (56768097)Smoker (F17.200)ActiveconfirmedProblemVitamin D deficiency (38144068) Vitamin D deficiency (E55.9)ActiveconfirmedProblemChronic fatigue syndrome (69950199)Chronic fatigue (R53.82)ActiveconfirmedProblemConstipation (75639705) Constipation, unspecified constipation type (K59.00)ActiveconfirmedProblem Paresthesia (57783952)Paresthesia (R20.2)ActiveconfirmedProblemSeasonal allergy (263825117)Seasonal allergies (J30.2)ActiveconfirmedProblemTwitching (179992600) Twitching (R25.3)ActiveconfirmedProblemBipolar affective disorder, currently manic, moderate (642886813)Bipolar affective disorder, currently manic, moderate (F31.12)ActiveconfirmedProblemImaging result abnormal (911910197)Abnormal findings on diagnostic imaging of other specified body structures (R93.89)Active confirmedProblemH/O drug abuse (F19.11)ActiveconfirmedProblemGastroesophageal reflux disease (339281572)Gastroesophageal reflux disease, unspecified whether esophagitis present (K21.9)Activeconfirmed Vital Signs Heart Rate 92 /min 12/02/2024 Respiratory Rate16 /min12/02/2024lood pressure lnbeiwhzb35 mm Hg12/02/2024 Oywgvzry74 %12/02/20249146Lgmtea97 in12/02/2024lood pressure bwqzwbge518 mm Hg 12/02/20247802Gwqnyh724.6 lbs12/02/2024BMI26.25 kg/m212/02/2024 Encounters Encounter Location Date Provider Diagnosis [facility] [place] [address] [place] [address] 08/22/2024 [facility] [address] [place] [address]/12/2024Heather [facility] [address] [place] [address]/03/2024 [facility] [address] [place] [address] 03/28/2024Heather FerozConstipation, unspecified constipation type K59.00FaDanielle [facility] [address] [place] [address]/01/2024Heather Feroz Bipolar disorder, currently in remission, most recent episode unspecified F31.70 ; Constipation, unspecified constipation type K59.00 ; Restless legs syndrome G25.81 ; Vitamin D deficiency E55.9 ; Mixed hyperlipidemia E78.2 and Other osteoporosis without current pathological fracture M81.8[facility] [address] [place] [address]/12/2024Heather FerozBipolar disorder, currently in remission, most recent episode unspecified F31.70 ; Constipation, unspecified constipation type K59.00 ; Restless legs syndrome G25.81 ; Vitamin D deficiency E55.9 ; Mixed hyperlipidemia E78.2 and Unspecified disorder of binocular movement H51.9[address] [address]/06/2024Heather HaynesOther constipation K59.09 ; Bipolar disorder, currently in remission, most recent episode unspecified F31.70 ; Vitamin D deficiency E55.9 ; Restless leg G25.81 ; Twitching R25.3 ; Seasonal allergies J30.2 and Mixed hyperlipidemia E78.2[address] [address]/Heather HaynesOther chest pain R07.89 ; Contusion of left front wall of thorax, subsequent encounter S20.212D ; Ab normal findings on diagnostic imaging of other specified body structures R93.89 and Other specifiedabnormal findings of blood chemistry R79.[address] [address]/06/2024[facility] abnormal findings Z00.00 ; Other constipation K59.09 ; Vitamin D deficiency E55.9 ; Restless leg G25.81 ; Twitching R25.3 ; Seasonal allergies J30.2 and Mixed hyperlipidemia E78.2 Assessments Encounter Date Diagnosis (ICD Code) Assessment Notes Treatment Notes Treatment Clinical Notes Section Notes 01/25/2024 Bipolar disorder, cu rrently in remission, most recent episode unspecified (ICD-10 - F31.70) 01/25/2024onstipation, unspecified constipation type (ICD-10 - K59.00) 5Bipolar disorder, currently in remission, most recent episode unspecified (ICD-10 - F31.70) Refer to [facility] for potential medication side effects with eye movements, and RLS Continue current meds, and follow up with psych as directed 04/25/2024onstipation, unspecified constipation type (ICD-10 - K59.00) Continue stool softener twice daily Increase your fluid intake to at least 64 ounces of fluid a day Add in miralax daily in 8 oz of fluid 08/17/2024[facility] for general adult medical examination without abnormal findings (ICD-10 - Z00.00)08/17/2024Other constipation (ICD-10 - K59.09)Script for hneyztu1411/17/2024Other constipation (ICD-10 - K59.09)Improved, as long as she takes the sesjfln4211/17/2024ipolar disorder, currently in remission, most recent episode unspecified (ICD-10 - F31.70) Weight gain since being off the topomax, but has just been restarted on this. Possibly having more eye issues from being on the depakote also. -if not improving in the next few weeks, call for referral to Dr. Frias 12/02/2024Other chest pain (ICD-10 - R07.89)12/02/2024ontusion of left front wall of thorax, subsequent encounter (ICD-10 - S20.212D)03/28/2024onstipation, unspecified constipation type (ICD-10 - K59.00)12/02/2024bnormal findings on diagnostic imaging of other specified body structures (ICD-10 - R93.89) 11/17/2024Vitamin D deficiency (ICD-10 - E55.9)STable, continue supplement 08/17/2024Vitamin D deficiency (ICD-10 - E55.9)Continue Vitamin D004/25/2024 Restless legs syndrome (ICD-10 - G25.81) Refer to [facility] for potential medication side effects with eye movements, and RLS No longer on the gabapentin - legs still move a lot, but less bothersome than it used to be 01/25/2024estless legs syndrome (ICD-10 - G25.81)stable off gabapentin 01/25/2024Vitamin D deficiency (ICD-10 - E55.9)04/25/2024Vitamin D deficiency (ICD-10 - E55.9)IZnqzo8208/17/2024Restless leg (ICD-10 - G25.81)COntinue current med, and refer back to Dr. Mckeon11/17/2024Restless leg (ICD-10 - G25.81) Relatively rhqfrp9511/17/2024Twitching (ICD-10 - R25.3)hopefully will improve being off the depakote and back on uesvafr5208/17/2024Twitching (ICD-10 - R25.3) refer back to Dr. Mckeon12/02/2024Other specified abnormal findings of blood chemistry (ICD-10 - R79.89)04/25/2024Mixed hyperlipidemia (ICD-10 - E78.2) 01/25/2024Mixed hyperlipidemia (ICD-10 - E78.2)Refill of xetiwat7701/25/2024Other osteoporosis without current pathological fracture (ICD-10 - M81.8)Try adding calcium daily04/25/2024Unspecified disorder of binocular movement (ICD-10 - H51.9)Refer to [facility] for potential medication side effects with eye movements, and RLS08/17/2024Seasonal allergies (ICD-10 - J30.2)Tgwprav5211/17/2024Seasonal allergies (ICD-10 - J30.2)usmhil1811/17/2024Mixed hyperlipidemia (ICD-10 - E78.2) Continue current med08/17/2024Mixed hyperlipidemia (ICD-10 - E78.2)Continue lipitor Plan Of Treatment Pending Test Test Name Order Date LIVER (HEPATIC) PANEL 12/02/2024 XR Chest PA and Lateral (Routine CXR) * 12/02/2024 LIVER PANEL 12/06/2024 Next Appt Details Provider Name:Jesse johns, 01/16/2025 03:30:00 PM, [address] [place], [address], Provider Name:Tiana de souza, 02/23/2025 04:00:00 PM, [address] [place], [address], Insurance Providers Payer Name Payer Address Payer Phone Subscriber Number Group Number Insured Name Patient Relationship to Insured Coverage Start Date Coverage End Date [employer] [place] [employer] [address] [place] [address] [id number] Alma Kumar - patient is the [id number] 2022 Medical (General) History Medical History History ICD Code Bipolar InsomniaFrequent UTIsH/o drug abuseSeasonal allergiesPTSDSocial anxiety OsteoporosisSurgical History Surgery Date(Month/Year) Tubes tied 06/22/2023 Colonoscopy 2007
--- OUTSIDE RECORDS SUMMARY | 2025-01-13 18:11 | XMS_ITS | Encounter Summary ---
Author Organization [facility] Address [address] [facility] [place] [address] Care Team Providers Care Supervisor Winding Department Name Role Phone Smiley Jain CN Unavailable [phone] Tiana Redman MD Primary Care Provider Corrina Brown HNP-BC Unavailable Reason for Visit * ReasonOnset DateCommentsMed Gguyuh5101/10/2025 Encounter Details DateTypeDepartmentCare Team (Latest Contact Info)Ebjkoxciwcn46/28/2025Refill [facility] [address] [facility] [address] [place] [address] Corrina Brown [facility]- [address] [place] [phone] Bipolar 2 disorder (HCC); PTSD (post-traumatic stress disorder); JUVENAL (generalized anxiety disorder) Social History Tobacco UseTypesPacks/DayYears UsedDateSmoking Tobacco: Every DayCigarettes Comments:Smokes 60 mins afte r waking up. 5 or less cigs a day. Alcohol UseStandard Drinks/WeekCommentsNot Currently0 (1 standard drink = 0.6 oz pure alcohol)caffeine intake: 1 cup coffee in the morningPHQ-2AnswerDate RecordedPatient Health Questionnaire-2 Dlinu30903/28/2023EducationAnswerDate RecordedWhat is the highest level of school you have completed or the highest degree you have received?High school bnoaozoe31/03/2023CommentsNoSex and Gender InformationValueDate RecordedSex Assigned at AjoskMafxtt57/14/2024 1:08 PM EDTLegal JnkHbkgfi73/15/2023 6:39 PM EDTGender RgjgjgpmGyasve33/15/2023 6:39 PM EDTSexual ZxmoxvidujgFjvlzifj11/14/2024 1:08 PM EDTOccupationIndustryJob Start DateJob End Datebabysitting, cleaningNot on fileNot on fileNot on file documented as of this encounter Plan of Treatment DateTypeDepartmentCare Team (Latest Contact Info)Roxdpxnrenj73/06/2025 1:00 PM ESTOffice Visit [facility] [address] [place] [phone] Smiley Jain, CNM [address] [place] [address] 01/19/2025 2:00 PM ESTAncillary Procedure [facility] [address] [facility] [address] [place] [phone] 02/02/2025 2:00 PM ESTOffice Visit [facility] [address] [facility] [address] [place] [address] Adrianne Aguirre, CLEANING MATRON-EMPLOYMENT RECRUITER [address] [facility] [address] [place] [address] 03/29/2025 12:00 PM ESTOffice Visit [facility] [address] [place] [address] Diana Guzman, CLEANING MATRON-APPLICATION PERFORMANCE ENGINEER [address] [place], [place] [id number] documented as of this encounter Visit Diagnoses Diagnosis Bipolar 2 disorder (HCC) Other bipolar disorders PTSD (post-traumatic stress disorder) Posttraumatic stress disorder JUVENAL (generalized anxiety disorder) Generalized anxiety disorder documented in this encounter Additional Health Concerns AssessmentNoted TimePHQ-9 Depression Total Score: 15103/28/2023 9:09 AM EST documented as of this encounter Care Teams Team MemberRelationshipSpecialtyStart DateEnd Date Tiana Redman MD [address] [place] [address] PCP - GeneralFamily Medicine10/14/22 Smiley Jain CNM [address] [place] [address] Obstetrics and Gynecology08/19/22 Corrina Brown PMHNP-ROXY [address] [address] Nurse PractitionerBehavioral Qpgpam97/24/24documented as of this encounter
--- OUTSIDE RECORDS SUMMARY | 2025-01-13 18:11 | XMS_ITS | Clinical Summary ---
Author Organization [facility] Address [address] [place] [address] Care Team Providers Care Telecommunicator Name Role Phone Melanie Jaindemetrio Smith CN Unavailable [phone] Tiana Redman MD Primary Care Provider Corrina Brown PMHNP-BC Unavailable Allergies Active AllergyReactionsCriticalityNoted DateCommentsAmoxicillinNausea Only 09/20/2021uspironeGI bzoznwsbzih98/24/2024odeineGI intolerance,Nausea Only, Nopivce0703/13/2017 Other Reaction(s): Vomiting , Nausea Hydrocodone-AcetaminophenGI txtdnutxvgt02/28/1923AipktmsjgljSxdhyvaw72/14/2024 IgsdsnjzfrFkhrr97/14/2024 Paranoia, Kaleigh HxqxfoxqkCeolw30/13/2024 Nightmares Medications MedicationSigDispense QuantityRefillsLast FilledStart DateEnd DateStatus fluticasone (Flonase) 50 MCG/ACT nasal spray ADMINISTER 1 SPRAY INTO EACH NOSTRIL IN THE MORNING.12/16/2021ctive ibuprofen 800 MG tablet TAKE 1 TABLET BY MOUTH THREE TIMES A DAY WITH FOOD OR MILK NEEDEDActive ergocalciferol (Vitamin D2) 1.25 MG (37854 UT) capsule Take 1 capsule by mouth 1 (one) time per week03/06/2023ctive atorvastatin (Lipitor) 10 MG tablet Take 10 mg by mouth at bedtimeActive ciclopirox (Loprox) 0.77 % cream Indications:Other seborrheic dermatitisApply thin layer to affected area once a day, 30 day supply 90 g 11008/19/2023ctive Ciclopirox 1 % shampoo Indications:Other seborrheic dermatitisLather on wet hair, leave on 5 min, rinse 2-3 x week, 30 day supply 120 mL ctive Vit-Fe Fumarate-FA (M- Plus) 27-1 MG tablet Take 1 tablet by mouth Daily09/14/2023ctive risperiDONE (RisperDAL) 2 MG tablet Indications:Mixed Bipolar Affective DisorderTake 1.5 tablet in the morning and 1 tablet at night. 90 tablet 5Active hydrOXYzine pamoate (Vistaril) 50 MG capsule Indications:JUVENAL (generalized anxiety disorder)Take 1 capsule (50 mg) by mouth every 6 (six) hours if needed for anxiety for up to 120 doses 120 capsule tive sertraline (Zoloft) 100 MG tablet Indications:PTSD (post-traumatic stress disorder),JUVENAL (generalized anxiety disorder)Take 1.5 tablets (150 mg) by mouth Daily 135 tablet tive topiramate 50 MG tablet Indications:Bipolar 2 disorder (HCC)Take 50 mg by mouth in the morning and 50 mg before bedtime. 60 tablet tive buPROPion SR (Wellbutrin SR) 200 MG 12 hr tablet Indications:Bipolar 2 disorder (HCC),PTSD (post-traumatic stress disorder),JUVENAL (generalized anxiety disorder)Take 1 tablet (200 mg) by mouth in the morning and 1 tablet (200 mg) before bedtime. 60 tablet 5Active buPROPion SR (Wellbutrin SR) 200 MG 12 hr tablet Indications:Bipolar 2 disorder (HCC),PTSD (post-traumatic stress disorder),JUVENAL (generalized anxiety disorder)Take 1 tablet (200 mg) by mouth in the morning and 1 tablet (200 mg) before bedtime. 180 tablet Discontinued(Reorder) topiramate (Topamax) 25 MG tablet Indications:Bipolar 2 disorder (HCC)Take 1 tablet (25 mg) by mouth 2 (two) times a day for 7 days, THEN 2 tablets (50 mg) 2 (two) timesa day. Discontinued(Reorder) Active Problems ProblemNoted DateDiagnosed DateHistory of substance use10/18/2024Osteoporosis 12/25/2022 Overview (01/27/2024): From over 10yrs of depo shot and no period over 13yrs. Chronic dtszcfz2410/14/2022astroesophageal reflux lpbkmyg5710/14/2022Vitamin D tnvkpyhzoe72/01/2023Movement usoolero38/23/2023 Overview (01/13/2025): Due to side effect from antipsychotic medication. Akathisia. Recurrent UTI (urinary tract infection)07/31/2021 Overview (10/14/2022): ==== 11/04/2021 ==== #### s/p cysto and U-M no anatomic predisposition. PLAN: cranberry suppl. Standing order urine cx and self start macrobid. ====07/31/21==== longstanding recurrent Urinary tract infections, previously seen in 2013. She did not go through with the cystoscopy as was advised. We will check a renal/bladder ultrasound withPVR and she agrees to go forward with a cystoscopy/possible bilateral retrograde pyelogram/U of M instillation. Last Assessment & Plan: I am sending her urine for culture. She would like a call with the results. I told her to contact the office any time she suspects a Urinary tract infection so we can place an order for urine to bedropped off at a local lab for culture. We did discuss possible GI referral for her constipation. We will proceed with her testing 1st and determine if that is necessary after that Substance iruwvqrske61/08/2017Bipolar 2 zmveeyhb52/09/2017GAD (generalized anxiety disorder)12/22/2016PTSD (post-traumatic stress disorder) Resolved Problems ProblemNoted DateDiagnosed DateResolved EzosZnjncae07/01/202310/ipolar dpjuysnh96/Mood epuhldhd28ipolar disorder, current episode manic severe with psychotic ebioqwqz28ocaine abuseMuscle dabcxxxsc99Twitching10/14/2022 12/28/2023Nasal Encounters DateTypeDepartmentCare LlrqMuwqmbvkqwy54/31/2025 10:40 AM EDTOffice Visit [facility] [address] [place] [address] Edison Smith MD Tardive dyskinesia; New daily persistent /31/6181Ovmfcr56/28/1503Kssarj73/28/2025[facility] [address] [place] [address] Corrina Brown PMHNP-BC Bipolar 2 disorder (HCC); PTSD (post-traumatic stress disorder); JUVENAL (generalized anxiety disorder)01/10/2025Refill [facility] [address] [place] [phone] Corrina Brown PMHNP-BC Bipolar 2 disorder (HCC)01/06/2025Orders Only [address] [place] [address] Smiley Jain, [place] History of hjmnlupkokyj60/20/2025Refill [facility] [address] [place] [address] Corrina Brown PMHNP-BC Bipolar 2 disorder (HCC)12/22/20240896Hbmfsp14/18/2025Telephone [facility] [place] [address] [place] [address] Corrina Brown PMHNP-BC labs11/24/2024 9:30 AM EDTTelemedicine [facility] [address] [place] [address] Corrina Brown, PMHNP-BC PTSD (post-traumatic stress disorder) ; JUVENAL (generalized anxiety disorder) ; History of substance use; Bipolar 2 disorder (HCC)11/24/20243993Edqxhy85/04/2025Orders Only [facility] [place] [address] [place] [address] Taylor Browndith, PMHNP-BC Bipolar 2 disorder (HCC)11/10/2024Telephone [facility] [address] [place] [address] Ninoska Denton LPN Medication Problem (Possible side effect?)11/10/2024Telephone [facility] [address] [place] [address] Taylor Browndith, PMHNP-BC 11/07/2024Telephone [facility] [address] [place] [address] Taylor Browndith, PMHNP-BC Medication Qyqwihh1711/02/2024Refill [facility] [place] [facility] [address] [place] [address] Taylor Browndith, PMHNP-BC Bipolar 2 disorder (HCC); PTSD (post-traumatic stress disorder) ; JUVENAL (generalized anxiety disorder)11/02/2024Refill [facility] [facility] [address] [place] [address] Dima Brownth, PMHNP-BC PTSD (post-traumatic stress disorder) ; JUVENAL (generalized anxiety disorder)10/25/2024 2:30 PM EDTTelemedicine [facility] [address] [place] [address] Corrina Brown, PMHNP-BC Bipolar 2 disorder (HCC); PTSD (post-traumatic stress disorder) ; JUVENAL (generalized anxiety disorder) ; History of substance use; High risk medication use10/22/2024Travelfrom Last 3 Months Family History Medical HistoryRelationNameCommentsNo Known ProblemsDaughterAnxiety disorder FatherDepressionFatherHyperlipidemiaFatherKidney cancerMaternal Grandfather LeukemiaMaternal GrandmotherHypertensionMotherLung cancerPaternal Grandfather DementiaPaternal GrandmotherRelationNameStatusCommentsDaughterFatherAlive Maternal GrandfatherDeceasedMaternal GrandmotherDeceasedMotherAlivePaternal GrandfatherDeceasedPaternal GrandmotherAliveSister2 sisters Social History Tobacco UseTypesPacks/DayYears UsedDateSmoking Tobacco: Every DayCigarettes Tobacco Cessation:Ready to Q uit: Not Asked; Counseling Given: Not Answered Comments:Smokes 60 mins after waking up. 5 or less cigs a day. Alcohol UseStandard Drinks/WeekCommentsNot Currently0 (1 standard drink = 0.6 oz pure alcohol)caffeine intake: 1 cup coffee in the morningPHQ-2AnswerDate RecordedPatient Health Questionnaire-2 Ydpsp19503/28/2023EducationAnswerDate RecordedWhat is the highest level of school you have completed or the highest degree you have received?High school sinxwxma43/03/2023CommentsNoSex and Gender InformationValueDate RecordedSex Assigned at YsubwYpbqgx19/14/2024 1:08 PM EDTLegal FiaRrdcjp32/15/2023 6:39 PM EDTGender PcekaophOlurge89/15/2023 6:39 PM EDTSexual AvfimttsrwxAvqtyvvx37/14/2024 1:08 PM EDTOccupationIndustryJob Start DateJob End Datebabysitting, cleaningNot on fileNot on fileNot on file Last Filed Vital Signs Vital SignReadingTime TakenCommentsBlood Gkfvrqhl513/8211 8:48 AM EST Hjwid0074 8:48 AM ATJAvgkplujvvr91.2 ??C (97.1 ??F)10/14/2022 1:17 PM EDTRespiratory Qgkx0236 1:17 PM EDTOxygen Szcgicxnrf99%10/14/2022 1:17 PM EDTInhaled Oxygen Concentration--Ddhlxb75.7 kg (158 lb)01/13/2025 10:18 AM ZLMZopitu260.5 cm (5' 7.5 )01/13/2025 10:18 AM EDTBody Mass Index24.381 10:18 AM EDT Plan of Treatment DateTypeDepartmentCare Team (Latest Contact Info)Atnclvhrtui32/06/2025 1:00 PM ESTOffice Visit [facility] [address] [place] [phone] Smiley Jain, CNM [address] [place], [place] [phone] 01/19/2025 2:00 PM ESTAncillary Procedure [facility] [address] [facility] [address] [place] [phone] 02/02/2025 2:00 PM ESTOffice Visit [facility] [address] [place] [address] Adrianne Aguirre, PROCESS CONTROL SPECIALIST-RECREATION THERAPY AIDES TEACHER [address] [facility] [address] [place] [address] 03/29/2025 12:00 PM ESTOffice Visit [facility] [address] [facility] [address] [place] [address] Diana Guzman, PROCESS CONTROL SPECIALIST-ROCK LATHER [address] [facility] [address] Health MaintenanceDue DateLast DoneCommentsMMR Vaccines (1 of 1 - Standard series)09/18/1988DTaP/Tdap/Td Vaccines (1 - Tdap)09/18/1994Varicella Vaccines (1 of 2 - 13+ 2-dose series)09/18/2000Hepatitis B Vaccines (1 of 3 - 19+ 3-dose series)09/18/2006HPV Vaccines (1 - 3-dose SCDM series)09/18/2014COVID-19 Vaccine ( season)/03/2020, 07/21/2020, 06/30/2020Influenza Vaccine (#1)/, 12/31/2022, 03/17/2022, Additional history existsHPV/Hzcvws33/ervical Cancer Fesqlwclh75/08/2027Pap Smear , 07/25/2020HIB VaccinesAged OutNo longer eligible based on patient's age to complete this topicHepatitis A VaccinesAged OutNo longer eligible based on patient's age to complete this topicIPV VaccinesAged OutNo longer eligible based on patient's age to complete this topicMeningococcal B VaccineAged OutNo longer eligible based on patient's age to complete this topic Meningococcal VaccineAged OutNo longer eligible based on patient's age to complete this topicPneumococcal Vaccine: Pediatrics (0 to 5 Years) and At-Risk Patients (6 to 64 Years)Aged OutNo longer eligible based on patient's age to complete this topicRotavirus VaccinesAged OutNo longer eligible based on patient's age to complete this topic Procedures Procedure NamePriorityDate/TimeAssociated DiagnosisCommentsTHINPREP IMAGING PAP AND HPV DNA REFLEX HPV 16,41Fzmzijk64/08/2024 2:38 PM EDT Screening for cervical cancer Q - THINPREP(R) TIS AND HPV MRNA E6/E7 RFL HPV 16,18/94Wxxcbtt76/12/2021 from Last 3 Months or Most Recently Relevant to Health Maintenance Results * THINPREP IMAGING PAP AND HPV DNA REFLEX HPV 16,18 (10/22/2023 2:38 PM EDT) ComponentValueRef RangeTest MethodAnalysis TimePerformed AtPathologist SignatureCLINICAL INFORMATIONQUESTComment:None givenLMPQUESTComment:NONE GIVEN PREV. PAPQUESTComment:NONE GIVENPREV. BXQUESTComment:NONE GIVENSOURCEQUEST Comment:None givenSTATEMENT OF ADEQUACYQUESTComment: Satisfactory for evaluation. Endocervical/transformation zone component absent. INTERPRETATION/RESULTQUESTComment: Cytology Results: Negative for intraepithelial lesion or malignancy. COMMENTQUESTComment: This Pap test has been evaluated with computer assisted technology. CYTOTECHNOLOGISTQUESTComment: BH, CT(ASCP) CT screening location: [facility] [place] [address]. REVIEW CYTOTECHNOLOGISTQUESTComment: PCJ, SCT(ASCP) CT screening location: [facility] [place] [address]. (ALWAYS MESSAGE)QUESTComment: EXPLANATORY NOTE: The Pap is a screening test for cervical cancer. It is not a diagnostic test and is subject to false negative and false positive results. It is most reliable when a satisfactory sample, regularly obtained, is submitted with relevant clinical findings and history, and when the Pap result is evaluated along with historic and current clinical information. HPV DNA, HIGH RISK, CERVICALNot DetectedNOT DETECTEDQUESTComment: Not Detected High Risk HPV types (16,18,31,33,35,39,45,51,52, 56,58,59,66,68) were not detected. Other HPV types which cause anogenital lesions may be present. The significance of the other types of HPV in malignant processes has not been established. Methodology: Real Time PCR Specimen (Source)Anatomical Location / LateralityCollection Method / Volume Collection TimeReceived TimeSwabCervical swab / Nhgwzjf9010/22/2023 2:38 PM EDT 10/23/2023 12:09 AM EDT Narrative Resulting Agency Comment Performing Organization Information ?Site ID: AMD ?Name: [facility] ?Address: [address] [place] [address] [place] ?Director: Cristhian Locke M.D.,PhD ?Site ID: [id number] ?Name: [facility] ?Address: [address] [place] [phone] ?Director: Giovanni Martinez MD Authorizing ProviderResult TypeResult StatusValejulisa Jain CNMLAB CYTOLOGY ORDERABLESFinal ResultPerforming OrganizationAddressCity/State/ZIP CodePhone Number [facility]ST * Q - THINPREP(R) TIS AND HPV MRNA E6/E7 RFL HPV 16,18/45 (07/25/2020)Component ValueRef RangeTest MethodAnalysis TimePerformed AtPathologist Signature CLINICAL INFORMATION:None givenNOMS LEGACY EXTERNAL LABComment:[HFK]LMP:None givenNOMS LEGACY EXTERNAL LABComment:[HFK]PREV. PAP:None givenN[facility]S LEGACY EXTERNAL LABComment:[HFK]PREV. BX:None givenN[facility]S LEGACY EXTERNAL LABComment: [HFK]SOURCE:None givenNOMS LEGACY EXTERNAL LABComment:[HFK]STATEMENT OF ADEQUACY:SATISFACTORY FOR EVALUATIONNOMS LEGACY EXTERNAL LABComment:[HFK] INTERPRETATION/RESULT:SEE NOTENOMS LEGACY EXTERNAL LABComment: Negative for intraepithelial lesion or malignancy. Reactive cellular changes associated with repair [HFK] INFECTION:Shift in vaginal chelsey suggestive of bacterial vaginosis.[facility] LEGACY EXTERNAL LABComment:[HFK]COMMENT:This Pap test has been evaluated with computer assisted technology.[facility] LEGACY EXTERNAL LABComment:[HFK]SEWER AND DRAIN TECHNICIAN:SEE NOTENONC LEGACY EXTERNAL LABComment: CATIE WILLIAMSON(ASCP) CT screening location: [place] [address]. [HFK] PATHOLOGIST:SEE NOTECACHE [facility]LEY [facility] LEGACY EXTERNAL LABComment: Dominick Arriaga MD Board Certified in Anatomic Pathology and Cytopathology (electronic signature) For questions regarding this report call Anatomic Pathology at [phone] Dominick Arriaga MD, Apparel Merchandiser [employer] [place], [place] [HFK] COMMENTSEE NOTENOMS LEGACY EXTERNAL LABComment: EXPLANATORY NOTE: The Pap is a screening test for cervical cancer. It is not a diagnostic test and is subject to false negative and false positive results. It is most reliable when a satisfactory sample, regularly obtained, is submitted with relevant clinical findings and history, and when the Pap result is evaluated along with historic and current clinical information. [HFK] HPV MRNA E6/E7Not DetectedNot DetectedNOMS LEGACY EXTERNAL LABComment: Methodology: Nursing Specialist-Mediated Amplification This assay detects E6/E7 viral messenger RNA (mRNA) from 14 high-risk HPV types (16,18,31,33,35,39,45,51,52,56,58,59,66,68). The analytical performance characteristics of this assay have been determined by [facility] The modifications have not been cleared or approved by the FDA. This assay has been validated pursuant to the CLIA regulations and is used for clinical purposes. For additional information, please refer to http://education.[employer]/faq/HIB668d8 (This link if provided for information/ educational purposes only.) [O6K] Specimen (Source)Anatomical Location / LateralityCollection Method / Volume Collection TimeReceived Time07/25/2020 Narrative Authorizing ProviderResult TypeResult StatusValeridemetrio Jain CNMECW LABSFinal ResultPerforming OrganizationAddressCity/State/ZIP CodePhone Number [facility] from Last 3 Months or Most Recently Relevant to Health Maintenance Insurance Care Teams Team MemberRelationshipSpecialtyStart DateEnd Tiana Redman MD [address] [place] [address] PCP - GeneralFamily Medicine10/14/22 Smiley Jain CNM [address] [place], [place] [phone] Obstetrics and Gynecology08/19/22 Corrina Brown PMHNP-BC [address] [facility] [address] [place] [address] Nurse PractitionerProvidence Behavioral Health Hospital Arasnk54/24/24
--- OUTSIDE RECORDS SUMMARY | 2025-01-13 18:11 | XMS_ITS | Encounter Summary ---
Author Organization [facility] Address [address] [place] [address] Care Team Providers Care Claim Auditor Name Role Phone Smiley Jain [facility] Unavailable [phone] Tiana Redman MD Primary Care Provider [phone] Corrina Brown [facility]- Unavailable Encounter Details DateTypeDepartmentCare Team (Latest Contact Info)Wilgbiwcbis30/24/2025Orders Only [facility] [address] [place] [phone] Smiley Jain CNM [address] [place], [place] [phone] History of osteoporosis Social History Tobacco UseTypesPacks/DayYears UsedDateSmoking Tobacco: Every DayCigarettes Comments:Smokes 60 mins afte r waking up. 5 or less cigs a day. Alcohol UseStandard Drinks/WeekCommentsNot Currently0 (1 standard drink = 0.6 oz pure alcohol)caffeine intake: 1 cup coffee in the morningPHQ-2AnswerDate RecordedPatient Health Questionnaire-2 Qbrpx37603/28/2023EducationAnswerDate RecordedWhat is the highest level of school you have completed or the highest degree you have received?High school /03/2023CommentsNoSex and Gender InformationValueDate RecordedSex Assigned at NzturLwjenv33/14/2024 1:08 PM EDTLegal VrnHebpca18/15/2023 6:39 PM EDTGender OpwjnelqFfvovl18/15/2023 6:39 PM EDTSexual QrhbwikgqiiHdliivwv17/14/2024 1:08 PM EDTOccupationIndustryJob Start DateJob End Datebabysitting, cleaningNot on fileNot on fileNot on file documented as of this encounter Plan of Treatment DateTypeDepartmentCare Team (Latest Contact Info)Zvgrdosvngj42/06/2025 1:00 PM ESTOffice Visit [facility] [address] [place] [phone] Smiley Jain, CNM [address] [facility], [place] [phone] 01/19/2025 2:00 PM ESTAncillary Procedure [facility] [address] [place] [phone] 02/02/2025 2:00 PM ESTOffice Visit [facility] [address] [facility] [address] [place] [address] Adrianne Aguirre, ARCHITECTURAL MODELER-[facility] [address] [facility] [address] [place] [address] 03/29/2025 12:00 PM ESTOffice Visit [facility] [address] [place] [address] Diana Guzman, ARCHITECTURAL MODELER-COMMERCIAL PORTFOLIO MANAGER [address] [place] [address] NameTypePriorityAssociated DiagnosesOrder ScheduleDEXA bone densityImaging Routine History of osteoporosis Expected: 01/06/2025, Expires: 01/06/2026documented as of this encounter Visit Diagnoses Diagnosis History of osteoporosis Personal history of other musculoskeletal disorders documented in this encounter Additional Health Concerns AssessmentNoted TimePHQ-9 Depression Total Score: 15103/28/2023 9:09 AM EST documented as of this encounter Care Teams Team MemberRelationshipSpecialtyStart DateEnd Date Tiana Redman MD [address] [place] [address] PCP - GeneralFamily Medicine10/14/22 Smiley Jain CNM [address] [place], [place] [phone] Obstetrics and Gynecology08/19/22 Corrina Brown, [place]- [address] [facility] [address] [place] [address] Nurse PractitionerBehavioral Cknzoh39/24/24documented as of this encounter
--- OUTSIDE RECORDS SUMMARY | 2025-01-13 18:11 | XMS_ITS | Clinical Summary ---
Author Organization [employer] Address [id number] [address] [place] [address] Care Team Providers Care Relief Charge Nurse Name Role Phone Dickson Redman MD Primary Care Provider + [phone] Allergies Active AllergyReactionsCriticalityNoted QyttKbwfvdehNspshycxxkvVwkrnt59/08/2022 BuspironeOther (See Comments)07/08/20231471WqaryktEgbrjmid96/29/2017Lamotrigine 12/28/2023 Other Reaction(s): Seizures QuetiapineOther (See Comments)12/28/2023 Paranoia, Kaleigh Oxmumypk54/28/2018 Pt is unsure of allergy TrazodoneOther (See Comments)01/27/2024 Nightmares Hydrocodone-UjcpxvhonyhomJwdflqwd39/28/2018 Medications * This document contains information received from the source organization and may not represent a complete record from that organization. MedicationSigDispense QuantityRefillsLast FilledStart DateEnd DateStatus topiramate (TOPAMAX) 25 mg capsule Take 25 mg by mouth in the morning and 25 mg before bedtime.Active ibuprofen (MOTRIN) 800 mg tablet Take 1 tablet (800 mg total) by mouth 3 (three) times a day. 21 tablet 12/15/2021ctive OLANZapine (ZyPREXA) 2.5 mg tablet Take 1 tablet (2.5 mg total) by mouth in the morning and 1 tablet (2.5 mg total) at noon and 1 tablet (2.5 mg total) in the evening.Active OLANZapine (ZyPREXA) 5 mg tablet Take 1 tablet (5 mg total) by mouth nightly.Active atorvastatin (LIPITOR) 10 mg tablet Take 1 tablet (10 mg total) by mouth in the morning.Active buPROPion SR (WELLBUTRIN SR) 200 mg 12 hr tablet Take 1 tablet (200 mg total) by mouth in the morning and 1 tablet (200 mg total) before bedtime./6Active hydrOXYzine (VISTARIL) 50 mg capsule Take 1 capsule (50 mg total) by mouth every 6 (six) hours as needed.11/24/2024 Active risperiDONE (RisperDAL) 2 mg tablet 1 tablet (2 mg total).5Active sertraline (ZOLOFT) 100 mg tablet Take 1.5 tablets (150 mg total) by mouth in the morning.11/24/2024tive lidocaine (LIDODERM) 5 % Place 1 patch on the skin daily. Remove & Discard patch within 12 hours or as directed by 30 patch 11/27/2024tive ibuprofen (MOTRIN) 800 mg tablet Take 1 tablet (800 mg total) by mouth every 8 (eight) hours as needed for pain. 30 tablet 11/27/2024tive cyclobenzaprine (FLEXERIL) 10 mg tablet Take 1 tablet (10 mg total) by mouth 3 (three) times a day as needed for muscle spasms. 30 tablet 11/27/2024tive naloxone (NARCAN) 4 mg/actuation spray,non-aerosol nasal spray Administer 1 spray (4 mg total) into alternating nostrils as needed for opioid reversal.5Active Active Problems ProblemNoted DateDiagnosed DateRecurrent UTI (urinary tract infection)07/31/2021 Overview (11/04/2021): ==== 11/04/2021 ==== #### s/p cysto and U-M no anatomic predisposition. PLAN: cranberry suppl. Standing order urine cx and self start macrobid. ====07/31/21==== longstanding recurrent Urinary tract infections, previously seen in 2013. She did not go through with the cystoscopy as was advised. We will check a renal/bladder ultrasound with PVR and she agrees to go forward with a cystoscopy/possible bilateral retrograde pyelogram/U of M instillation. Assessment & Plan (07/31/2021 10:27 AM EDT): I am sending her urine for culture. She would like a call with the results. I told her to contact the office any time she suspects a Urinary tract infection so we can place an order for urine to be dropped off at a local lab for culture. We did discuss possible GI referral for her constipation. We will proceed with her testing 1st and determine if that is necessary after that Nasal hnambslade88/19/2019Substance ryoktiklac18/08/2017Bipolar II disorder 12/22/2016Generalized anxiety /09/2017 Encounters DateTypeDepartmentCare HbeyNpqcjvceehy27/23/2025 5:00 PM EDT - 12/06/2024 11:59 PM EDTHospital Encounter [facility] [address] [place] [address] Other chest pain; Contusion of left front wall of thorax, subsequent encounter; Abnormal radiological findings in skin and subcutaneous tissue Discharge Disposition: Home12/06/20241906Jnffve11/14/2025 6:01 PM EDT - 11/27/2024 7:07 PM EDTEmergency [facility] [address] [place] [address] Maria T Peterson DO Contusion of left chest wall, initial encounter (Primary Dx) Discharge Disposition: Home11/27/2024Travelfrom Last 3 Months Family History Medical HistoryRelationNameCommentsAnxiety disorderFatherDepressionFatherHigh CholesterolFatherHypertensionFatherCancerMaternal GrandfatherkidneyCancer Maternal GrandmotherleukemiaThyroid nodulesMotherCancerPaternal Grandfatherlung DementiaPaternal GrandmotherRelationNameStatusCommentsFatherMaternal Grandfather Maternal GrandmotherMotherPaternal GrandfatherPaternal Grandmother Social History Tobacco UseTypesPacks/DayYears UsedDateSmoking Tobacco: Every DayCigarettes Vaping/E-cigarettesSmokeless Tobacco: Never Tobacco Cessation:Ready to Q uit: Not Asked; Counseling Given: Not Answered Comments:2 cigarettes daily, also vapes Alcohol UseStandard Drinks/WeekCommentsYes0 (1 standard drink = 0.6 oz pure alcohol)OCCASIONALPHQ-2AnswerDate RecordedTotal Kouji61104/03/2018ChildcareAnswer Date EztvveokMipyadsaaSwaiebm22/12/2019EmploymentAnswerDate RecordedEmployment Jpqxksj9208/25/2018Hunger ScreeningAnswerDate RecordedWithin the past 12 months we worried whether our food would run out before we got money to buy more.Never True06/01/2022Within the past 12 months the food we bought just didn't last and we didn't have money to get more.Never True3Purpose - LifeAnswerDate RecordedPurpose and direction in imqkNeqdvof02/11/2021CommentsNoSex and Gender InformationValueDate RecordedSex Assigned at BirthNot on fileLegal Sex Tnmogb9210/19/2014 11:38 AM EDTGender IdentityNot on fileSexual OrientationNot on file Last Filed Vital Signs Vital SignReadingTime TakenCommentsBlood Vyybesdv579/8109 7:07 PM EDT Swfqs126511/27/2024 7:07 PM PANAxnqgxqscxx92.8 ??C (98.3 ??F)11/27/2024 5:33 PM EDTRespiratory Egmt593611/27/2024 7:07 PM EDTOxygen Qvutgmpoqd338%11/27/2024 7:07 PM EDTInhaled Oxygen Concentration--Jettyj59.4 kg (164 lb)11/27/2024 5:33 PM EDT Ugjpvm452.2 cm (5' 7 )06/01/2022 1:28 AM EDTBody Mass Index25.6903 1:28 AM EDT Plan of Treatment Health MaintenanceDue DateLast DoneCommentsTobacco Ceetfcbasq71/06/1988 Depression Aphcsgxth39/06/2000DTaP,Tdap and Td Vaccines (1 - Tdap)09/18/2006Pap Smear, 04/15/2017COVID-19 Vaccine ( season) , 07/21/2020, 06/30/2020Influenza Thhxxfi7811/14/2024 01/05/2024, 12/31/2022, 03/17/2022, Additional history existsAdult BMI Screening /Tobacco Kofdjbwdf70 Medical Devices Not on file Procedures Procedure NamePriorityDate/TimeAssociated DiagnosisCommentsXR CHEST 2 VWSRoutine 12/06/2024 5:04 PM EDT Other chest pain Contusion of left front wall of thorax, subsequent encounter Abnormal radiological findings in skin and subcutaneous tissue LIVER APPPPKeuwcrd75/23/2025 4:56 PM EDT Other specified abnormal findings of blood chemistry XR RIBS LT 3 VWS W PA KNZNDPPFK64/14/2025 5:57 PM EDT PAP MNHJNJzsruhc91/31/2018 3:02 PM EST from Last 3 Months or Most Recently Relevant to Health Maintenance Results * X-ray chest 2 views (12/06/2024 5:04 PM EDT)Anatomical RegionLaterality ModalityBody, ChestN/AComputed RadiographySpecimen (Source)Anatomical Location / LateralityCollection Method / VolumeCollection TimeReceived Time12/06/2024 5:55 PM EDT Narrative 12/06/2024 5:56 PM EDT History: Chest Pain Procedure: 2 view PA and Lateral chest radiograph. Comparison: 08/02/2017. Findings: The heart and lungs show no acute findings, and the mediastinum and oneil are grossly negative . No pneumothorax. Chest marker lateral lower left hemithorax. No associated bony abnormality. Impression: No acute pulmonary process. Finalized by Cabrera Shea MD on 12/06/2024 5:56 PM Procedure Note Cabrera Shea MD - 12/06/2024 History: Chest Pain Procedure: 2 view PA and Lateral chest radiograph. Comparison: 08/02/2017. Findings: The heart and lungs show no acute findings, and the mediastinumand oneil are grossly negative . No pneumothorax. Chest marker laterallower left hemithorax. No associated bony abnormality. Impression: No acute pulmonary process. Finalized by Cabrera Shea MD on 12/06/2024 5:56 PM Authorizing ProviderResult TypeResult StatusHeahillary Redman MDIMG DIAGNOSTIC IMAGING ORDERABLESFinal Result * (ABNORMAL) Liver panel (12/06/2024 4:56 PM EDT)ComponentValueRef RangeTest MethodAnalysis TimePerformed AtPathologist SignatureTOTAL PROTEIN6.76.0 - 8.0 g/dL12/06/2024 10:31 PM [facility] LABORATORYALBUMIN4.23.2 - 5.3 g/dL12/06/2024 10:31 PM [facility] BILIRUBIN,TOTAL0.30.3 - 1.2 mg/dL12/06/2024 10:31 PM [facility] LABORATORYALKALINE UKBRSARZLSX0568 - 130 U/L12/06/2024 10:31 PM EDT [facility] COIBDNNIYGEXF02<=41 U/L12/06/2024 10:31 PM [facility] ULKXFKIMZXJBF63(H)<=31 U/L12/06/2024 10:31 PM [facility] LABORATORYBILIRUBIN,DIRECT0.1<=0.4 mg/dL12/06/2024 10:31 PM [facility] LABORATORYSpecimen (Source)Anatomical Location / LateralityCollection Method / VolumeCollection TimeReceived TimeBloodVenous blood / UnknownVenipuncture / Zmykqyu8212/06/2024 4:56 PM EDT12/06/2024 4:56 PM EDT Narrative Authorizing ProviderResult TypeResult StatusDickson Redman MDLAB BLOOD ORDERABLESFinal ResultPerforming OrganizationAddressCity/State/ZIP CodePhone Number [facility] [address] [place] [address], [place] [phone] * X-ray ribs left 3 views with pa chest (11/27/2024 5:57 PM EDT)Anatomical RegionLateralityModalityMSK, ChestLeftComputed RadiographySpecimen (Source) Anatomical Location / LateralityCollection Method / VolumeCollection Time Received Time11/27/2024 7:03 PM EDT Narrative 11/27/2024 7:05 PM EDT XR RIBS LT 3 VWS W PA CHEST INDICATION: rib pain COMPARISON: None. FINDINGS: Normal cardiomediastinal silhouette. Hyperinflation with trace effusions. No pneumothorax. No acuteosseous abnormality or displaced left rib fracture identified. IMPRESSION: No displaced left rib fracture. Hyperinflation and trace effusions. No pneumothorax. Finalized by Wang Ramsay MD on 11/27/2024 7:05 PM Procedure Note Wang Ramsay MD - 11/27/2024 XR RIBS LT 3 VWS W PA CHEST INDICATION: rib pain COMPARISON: None. FINDINGS: Normal cardiomediastinal silhouette. Hyperinflation with trace effusions.No pneumothorax. No acute osseous abnormality or displaced left ribfracture identified. IMPRESSION: No displaced left rib fracture. Hyperinflation and trace effusions. No pneumothorax. Finalized by Wang Ramsay MD on 11/27/2024 7:05 PM Authorizing ProviderResult TypeResult StatusMaria T Peterson [facility] DIAGNOSTIC IMAGING ORDERABLESFinal Result * Pap Smear (04/15/2017 3:02 PM EST)Specimen (Source)Anatomical Location / LateralityCollection Method / VolumeCollection TimeReceived TimeCervical TP 04/15/2017 3:02 PM EST04/16/2017 3:03 PM EST Narrative COPATH - 04/22/2017 11:34 AM EST [facility] ? [address] ? [place] [id number] ? Gynecologic Cytology Consultation ? Patient Name: DICKSON KUMAR : 1985 (Age: 31) Gender: F Taken: 04/15/2017 Reported: 04/22/2017 Physician(s): Keli Ashby CNM ( ) Copy To: ?? [facility]. Rec. #: [id number] Acct: # [id number] Final Cytologic Interpretation Cervical (with or without endocervical) ThinPrep: Satisfactory for evaluation. A transformation zone component is present. NEGATIVE FOR INTRAEPITHELIAL LESION OR MALIGNANCY. ?? pjt/04/22/2017 Electronically Signed Out By ?Adriana Verónica, CT (ASCP) Date of Last Menstrual Period: ? 04/01/2017 Other Clinical Conditions: Screening/Routine z01.419 Traffic Expert exam wo/abn findings: Nexplanon Oral contraceptive Source of Specimen Cervical (with or without endocervical) ThinPrep ? Thin Prep Pap (TIRE STRIPPER) Fee Code(s): ?? G0145 The Pap test is a screening test with an inherent, but low, probability of error. The Pap test is primarily effective for the diagnosis and prevention of squamous cell carcinoma. Regular screening iscritical for prevention. ThinPrep liquid-based slides, which meet the Motor Vehicle Or Caravan Salesperson criteria for automated screening, have been screened by the ThinPrep Imaging System (as of 11/30/06) along with an additional manual rescreening by a water and gas helper and, if indicated, by a pathologist.Keli Ashby CNM 04/20/2017 Authorizing ProviderResult TypeResult StatusMejose Ashby CARBIDE DIE MAKER-CAITLIN PATHOLOGY/CYTOLOGY ORDERABLESFinal ResultPerforming OrganizationAddress City/State/ZIP CodePhone Number COPATH from Last 3 Months or Most Recently Relevant to Health Maintenance Insurance * Guarantor: Dickson KumarAccount TypeRelation to PatientDate of BirthPhone Billing AddressPersonal/AodkboQouk87/06/1986 [address] [place] [address] Care Teams Team MemberRelationshipSpecialtyStart DateEnd Date Dickson Redman MD [address] [place] [address] PCP - GeneralFamily Medicine09/24/16
--- NOTE | 2025-01-13 18:22 | CT_ITS ---
The [place] [id number] Patient Name: DICKSON NOE MRN: [id number] date: 1985 Sex: F Assigned Patient Location: ER Current Patient Location: [facility] Accession/Order Number: [id number] Exam Date: 01/13/2025 18:32 Report Date: 01/13/2025 19:35 At the request of: REN GALLEGO Procedure: CT chest wo con CT CHEST WITHOUT IV CONTRAST: CLINICAL HISTORY: Bilateral chest wall pain, Trauma COMPARISON: Chest x-ray 05/04/2023 TECHNIQUE: Spiral images were obtained through the chest without IV contrast. This CT exam was performed using one or more following dose reduction techniques: Automated exposure control, adjustment of the mA and/or kV according to patient size, or use of iterative reconstruction technique. FINDINGS: Mediastinum:Small pericardial effusion. Heart is grossly unremarkable size. No bulky adenopathy. Lungs:Hypoventilatory changes. Small effusions. No consolidation or pneumothorax. Abd:[Unremarkable as visualized.] Soft tissues/Bones: Healing likely subacute left seventh anterior rib fracture near the costochondral junction. Healing likely subacute left 6 anterior fracture of the costal chondral junction. Vertebral heights preserved. Minor degenerative changes. CT/CT chest wo con IMPRESSION: Left anterolateral sixth and seventh rib fractures subacute given the callus formation. Trace effusions and hypoventilatory changes.. Impression dictated by: Rubio Fountain M.D. 01/13/2025 7:35 PM Dictation Location: [place] [address] Electronically authenticated by: [id number] Y Date: 01/13/2025 19:35
--- NOTE | 2025-01-13 18:30 | ED_ITS ---
HPI HPI - General Adult General Chief complaint: Chest Pain Stated complaint: RIBS ARE HURTING Time Seen by Provider: 01/13/25 18:09 Source: patient Limitations: no limitations History of Present Illness HPI narrative: Patient is a 39-year-old female with a past medical history of osteoporosis that presents to the emergency department tonight with complaints of bilateral chest wall pain, more so on the right today. The pain on the right started in October when she had reached backwards in her car and started having pain on the right. In November she was playing rough with one of her male friends and her left arm was pulled hard and she rolled over her friend. She denies any blunt trauma to her chest wall. She denies any falls. She states she did not have any new trauma to her right side but was just walking around today when the anterior chest wall pain caught her. She has been using lidocaine patches, ibuprofen, Flexeril, and Percocet for breakthrough pain. She has seen her PCP 1 time for follow-up and had a chest xray. She initially went [facility] ER and the chest xray showed a small left sided effusion. Related Data Home Medications ?Medication ?Instructions ?Recorded ?Confirmed atorvastatin 10 mg tablet 10 mg PO DAILY 05/04/23 04/0 11/06 ergocalciferol (vitamin D2) 1,250 50,000 unit PO DAILY 05/04/23 01/13/25 mcg (50,000 unit) capsule ibuprofen 800 mg tablet 800 mg PO Q8H PRN pain 05/0401/13/25 topiramate 50 mg tablet 50 mg PO BID 05/04/23 hydroxyzine HCl 50 mg tablet 50 mg PO BID PRN anxiety 06/15/23 01/13/25 bupropion HCl 200 mg tablet,12 hr 200 mg PO Q12H 01/1301/13/25 sustained-release lidocaine 5 % topical patch 1 patch topical Q24H 01/1301/13/25 risperidone 2 mg tablet See Rx Instructions .Route . COMPLEX 01/13/25 01/13/25 sertraline 100 mg tablet 100 mg Q24H 01/13/25 Previous Rx's ?Medication ?Instructions ?Recorded oxycodone-acetaminophen 5 mg-325 1 tab PO Q6H PRN pain 4 days #10 04/08/24 mg tablet (Percocet) tabs Allergies Allergy/AdvReac Type Severity Reaction Status Date / Time codeine Allergy Vomiting Verified 06/22/23 06:41 hydrocodone Allergy Vomiting Verified 06/22/23 06:41 risperidone Allergy Tardive Verified 06/22/23 06:41 diskinesia tramadol Allergy Nightmare Verified 06/22/23 06:41 amoxicillin AdvReac Nausea Verified 06/22/23 06:41 Opioid HPI Opioid Management Most Recent Opioid Data: Last Pain Scale 8 Today, 17:56 Ur Phencyclidine Scrn, (NEGATIVE) Negative , 06:23 Review of Systems ROS Status of ROS 10 or more systems reviewed and unremark able except as noted in history and below [facility] Medical History (Updated 01/13/25 @ 19:44 by JULIÁN Alcantara) Anemia ?D64.9 - Anemia, unspecified (ICD-10) Social anxiety disorder ?F40.10 - Social phobia, unspecified (ICD-10) Panic attacks ?F41.0 - Panic disorder [episodic paroxysmal anxiety] (ICD-10) Extrapyramidal and movement disorder ?G25.9 - Extrapyramidal and movement disorder, unspecified (ICD-10) PTSD (post-traumatic stress disorder) ?F43.10 - Post-traumatic stress disorder, unspecified (ICD-10) Bipolar disorder with psychotic features ?F31.9 - Bipolar disorder, unspecified (ICD-10) Bipolar disorder ?F31.9 - Bipolar disorder, unspecified (ICD-10) Syncope ?R55 - Syncope and collapse (ICD-10) Osteoporosis ?M81.0 - Age-related osteoporosis without current pathological fracture (ICD- 10) Chlamydia ?A74.9 - Chlamydial infection, unspecified (ICD-10) Vitamin D deficiency ?E55.9 - Vitamin D deficiency, unspecified (ICD-10) Substance dependence ?F19.20 - Other psychoactive substance dependence, uncomplicated (ICD-10) UTI (urinary tract infection) ?N39.0 - Urinary tract infection, site not specified (ICD-10) Nasal congestion ?R09.81 - Nasal congestion (ICD-10) Muscle twitching ?R25.3 - Fasciculation (ICD-10) Irregular periods ?N92.6 - Irregular menstruation, unspecified (ICD-10) GERD (gastroesophageal reflux disease) ?K21.9 - Gastro-esophageal reflux disease without esophagitis (ICD-10) Cocaine abuse ?F14.10 - Cocaine abuse, uncomplicated (ICD-10) Chronic fatigue ?R53.82 - Chronic fatigue, unspecified (ICD-10) Mood disorder ?F39 - Unspecified mood [affective] disorder (ICD-10) Anxiety ?F41.9 - Anxiety disorder, unspecified (ICD-10) Request for sterilization ?Z30.2 - Encounter for sterilization (ICD-10) Surgical History (Updated 05/04/23 @ 14:42 by Kasia Fernandez NP) S/P cystoscopy ?Z98.890 - Other specified postprocedural states (ICD-10) History of colonoscopy ?Z98.890 - Other specified postprocedural states (ICD-10) Family History (Updated 05/04/23 @ 14:42 by Kasia Fernandez NP) Other Anxiety Chronic mental illness Depression Family history of cancer Family history of heart disease Hypertension Leukemia Social History (Updated 05/04/23 @ 14:36 by Kasia Fernandez NP) Within the past year, how often did you have a drink containing alcohol: monthly or less Smoking status: Heavy tobacco smoker Do you use any of these nicotine containing products: e-cigarettes and vaping products Non-prescribed substance use: denies use and former substance user Highest level of school completed/degree received: high school graduate Little interest or pleasure in doing things: not at all Feeling down, depressed, or hopeless: not at all Exam Narrative Exam Narrative: General: No distress, age-appropriate Skin: Warm, dry, no pallor. No rash. Head: Normocephalic, atraumatic. Neck: Supple, non-tender. Eye: Pupils are equal, round and EOMI. No scleral icterus. Ears, Nose, Mouth, and Throat: No nasal mucosal hypertrophy. Oral mucosa is moist, no posterior oropharynx erythema, uvula is mid-line Cardiovascular: Regular Rate and Rhythm without murmur, gallop or rub. Respiratory: No accessory muscle use or respiratory distress. Lungs are clear to auscultation, no wheezing, rales or rhonchi Chest Wall: Right anterior lateral chest wall tenderness, left anterior lateral chest wall tenderness with palpation Musculoskeletal: Full ROM of all extremities, no calf or popliteal tenderness GI: Abdomen is soft, non-distended, non tender to palpation. No masses appreciated. No rebound, guarding, or rigidity noted. Neurological: A&O x4. No cranial nerve dysfunction observed. No truncal ataxia. Moves all extremities. Sensation intact. Psychiatric: Cooperative and interactive. Normal mood and affect. Constitutional Vital Signs, click to edit/add: Last Vital Signs Temp 98.7 F 01/13/25 17:56 Pulse 87 01/13/25 17:56 Resp 16 01/13/25 17:56 BP 119/71 01/13/25 17:56 Pulse Ox 98 01/13/25 17:56 O2 Del Method Room Air 01/13/25 17:56 Documenting provider has reviewed patient's vital signs: yes Course Vital Signs Vital signs: Vital Signs Temperature 98.7 F 01/13/25 17:56 Pulse Rate 87 01/13/25 17:56 Respiratory Rate 16 01/13/25 17:56 Blood Pressure 119/71 01/13/25 17:56 Pulse Oximetry 98 01/13/25 17:56 Oxygen Delivery Method Room Air 01/13/25 17:56 Temperature 98.7 F 01/13/25 17:56 Pulse Rate 87 01/13/25 17:56 Respiratory Rate 16 01/13/25 17:56 Blood Pressure 119/71 01/13/25 17:56 Pulse Oximetry 98 01/13/25 17:56 Oxygen Delivery Method Room Air 01/13/25 17:56 Medical Decision Making MDM Narrative Medical decision making narrative: This is a 39-year-old female that presented to the ED with complaints of bilateral chest wall pain, today greater on the right. She denies any trauma today. She states that her right chest wall started hurting in October when she reached behind her car seat to grab something and felt pain. Her left side started in mid November when she was playing wrestling with a male friend. She states she does have osteoporosis, has had a DEXA scan, and is on medications for it. She initially was seen at the [facility] ER where a chest x-ray showed a trace pleural effusion on the left. She did follow-up with her PCP and had 1 follow-up x-ray already. Today she is concerned about her right chest as she had a sudden increase in pain, she denies SOB. On arrival patient is in no distress, speaks in full sentences. 98% O2 saturation on room air. Tender bilateral anterior lateral chest barajas, no crepitus. Equal bilateral breath sounds noted on exam. 30mg IM Toradol given for pain. CT Chest ordered. CT Chest reviewed and notes left anterolateral sixth and seventh rib fractures subacute given the callus formation. Trace effusions and hypoventilatory changes. I discussed results with patient and printed off the radiological read and handed to her. She will continue with multimodal pain control and pulmonary hygiene at home. She already has lidocaine patch, ibuprofen, Flexeril, and Percocet at home. I discussed that she still does have a trace effusion on the left and she continue to follow-up with her PCP. Return to the ED with any new or worsening symptoms including increasing chest wall pain or sudden SOB. Differential Diagnosis Differential Diagnosis: Displaced rib fracture, hemothorax, pneumothorax Lab Data Labs: Lab Results 01/13/25 Range/Units 18:46 Serum HCG, Qual Negative (NEGATIVE) Imaging Data CT scan - chest: Attestation: I have reviewed the pertinent imaging results. Radiologist's impression: ITS Impressions Chest CT 01/13/25 18:22 IMPRESSION: Left anterolateral sixth and seventh rib fractures subacute given the callus formation. Trace effusions and hypoventilatory changes.. Impression dictated by: Rubio Fountain M.D. 01/13/2025 7:35 PM Dictation Location: [place] [id number] Electronically authenticated by: [id number] Y Date: 01/13/2025 19:35 Discharge Plan Discharge Chief Complaint: Chest Pain Clinical Impression: Multiple rib fractures Patient Disposition: Home, Self-Care Time of Disposition Decision: 19:43 Condition: Good Mode of Transportation: Private Vehicle Prescriptions / Home Meds: No Action atorvastatin 10 mg tablet 10 mg PO DAILY ergocalciferol (vitamin D2) 1,250 mcg (50,000 unit) capsule 50,000 unit PO DAILY ibuprofen 800 mg tablet 800 mg PO Q8H PRN (Reason: pain) topiramate 50 mg tablet 50 mg PO BID hydroxyzine HCl 50 mg tablet 50 mg PO BID PRN (Reason: anxiety) oxycodone-acetaminophen [Percocet] 5-325 mg tablet 1 tab PO Q6H PRN (Reason: pain) 4 Days Qty: 10 0RF risperidone 2 mg tablet See Rx Instructions .ROUTE .COMPLEX Rx Instructions: 3 mg in am 2 mg at night; bupropion HCl 200 mg tablet sustained-release 12 hr 200 mg PO Q12H sertraline 100 mg tablet 100 mg Q24H lidocaine 5 % adhesive patch,medicated 1 patch topical Q24H Print Language: Italian Instructions: Rib Fracture (ED) Referrals: DICKSON SHAH [Primary Care Provider, Family Practice] - 1 week Discharge Date/Time: 01/13/25 19:52
--- NOTE | 2025-01-13 18:43 | PC.NURSE ---
pt denies chest pain. c/o right and left rib pain from previous injuries to ribs back in august
[2025-01-13] MEDS: KETOROLAC TROMETHAMINE 30 MG/ML VIAL IM (19:16)
== END 2025-01-13 19:52 | disposition home or self-care (01) ==
PROVIDERS: Physician Assistant; Emergency Provider Emergency Medicine; PCP Family Medicine
DX: S22.42XA Multiple fractures of ribs, left side, initial encounter for closed fracture (principal); M81.0 Age-related osteoporosis without current pathological fracture; F17.290 Nicotine dependence, other tobacco product, uncomplicated; Z79.899 Other long term (current) drug therapy; X50.9XXA Other and unspecified overexertion or strenuous movements or postures, initial encounter
CPT/HCPCS: 36415; 71250; 84703; 96372; 99284; J1885